=== PATIENT | male | born 1960 | race Caucasian/White ===

== ENCOUNTER 2019-02-26 20:54 | Inpatient (IN) ==
[2019-02-26] MEDS ORDERED: 0.9 % Sodium Chloride 2,000 ML ONE (21:25)
[2019-02-26] MEDS: 0.9 % Sodium Chloride 1,000 ML IVC SCH ×2 (21:32→22:19)
--- NOTE | 2019-02-26 21:39 | Emergency Department Note ---
Disposition Clinical Impression: Urinary tract infection Qualifiers: Urinary tract infection type: acute cystitis Hematuria presence: without hematuria Qualified Code(s): N30.00 - Acute cystitis without hematuria Pneumonia Qualifiers: Pneumonia type: due to unspecified organism Laterality: left Lung location: upper lobe of lung Qualified Code(s): J18.1 - Lobar pneumonia, unspecified organism Sepsis Qualifiers: Sepsis type: sepsis due to unspecified organism Sepsis acute organ dysfunction status: unspecified Qualified Code(s): A41.9 - Sepsis, unspecified organism Disposition: Admitted As Inpatient Condition: Fair Time of Disposition: 00:05 General Adult HPI - General Stated complaint: sepsis Time Seen by Provider: 02/26/19 21:00 Source: patient, EMS Mode of arrival: EMS Limitations: no limitations Nursing Notes Reviewed: Yes Vital Signs Reviewed: Yes - History of Present Illness HPI Narrative: 4-year-old male past medical history of COPD, CAD, hypertension, on Plavix, metoprolol, daily baby aspirin, olanzapine presenting for 2 day history of difficulty breathing. Patient was diagnosed yesterday with pneumonia and states that he was having worsening weakness, tremors and chills since that [facility] found to have an upper left lobe pneumonia, also urinary tract infection, it is documented that he was [facility] as well as maintenance fluids, but was initially communicated us by the physician at the facility he received 2 L of fluids, the patient also received a gram of her staff and at the facility, patient transferred to our care for further evaluation and management. Patient is noted to be tachycardic, tachypneic and febrile at our facility sepsis alert was called. The patient in addition to the above-mentioned symptoms also spouses lightheadedness/dizziness, he states he has some chest pain associated with the shortness of breath as well as a cough productive of dark yellow sputum. He denies any other concerns or complaints at this time. Patient's INR was checked at the outside facility as well as a PT both were found to be in within normal ranges, white blood cell count showed an elevated at 18.2, with a neutrophil predominance, patient's BMP was found to have an elevated creatinine level of 1.83 without prior to compare this to, impression of a chest x-ray was read as opacity and consolidation of left upper lobe, there were no blood cultures drawn at this time nor lactic acid, we will draw these at this time and admit the patient to the hospitalist medicine service for further evaluation and manag ement of pneumonia and UTI in the setting of sepsis. I discussed my plan of care with the patient his at bedside and both verbalized their understanding and agreement with this plan. Upon my initial evaluation, my general impression is that the patient is awake, alert, oriented, engaged to conversation and answering questions appropriately. There are no overt lateralizing signs, the patient is in no acute distress; their skin appears to be normal in color, they are not pale, not cyanotic, and not diaphoretic, they are sitting up in hospital bed interacting appropriately with environment. Onset (ago): day(s) Associated symptoms: Reports: chest pain, fever/chills, loss of appetite, malaise, shortness of breath Treatments Prior to Arrival: other (IV fluids, Rocephin) - Related Data Home Medications Medication Instructions Recorded Confirmed Aspirin 81 mg PO QAM 03/14/15 03/14/15 Budesonide/Formoterol 160/4.5 1 puff IH BID PRN 03/14/15 03/14/15 [Symbicort 160/4.5] Citalopram [CeleXA] 20 mg PO QPM 03/14/15 03/14/15 Clopidogrel [Plavix] 75 mg PO QPM 03/14/15 03/14/15 Gabapentin [Neurontin] 300 mg PO BID 03/14/15 03/14/15 Hydrocodone/Acetaminophen [[place] 1 each PO DAILY PRN 03/14/15 03/14/15 5-325 Tablet] Isosorbide MONOnitrate (24 HR) 30 mg PO QAM 03/14/15 03/14/15 [Imdur] Losartan [Cozaar] 100 mg PO QPM 03/14/15 03/14/15 Metoprolol [Lopressor] 25 mg PO QAM 03/14/15 03/14/15 OLANZapine [Zyprexa] 20 mg PO HS 03/14/15 03/14/15 Ranitidine HCl [Zantac] 300 mg PO QAM 03/14/15 03/14/15 Simvastatin [Zocor] 40 mg PO QPM 03/14/15 03/14/15 Temazepam [Restoril] 15 mg PO HS 03/14/15 03/14/15 rOPINIRole [Requip] 0.5 mg PO BID 03/14/15 03/14/15 Allergies Allergy/AdvReac Type Severity Reaction Status Date / Time acetaminophen AdvReac Nausea Verified 03/14/15 10:51 [From Darvocet-N] propoxyphene AdvReac Nausea Verified 03/14/15 10:51 [From Darvocet-N] Review of Systems: *See History of Present Illness for more detail Constitutional: Admits: fever, chills Cardiovascular: Admits: chest pain Respiratory: Admits: dyspnea, denies: cough, hemoptysis Gastrointestinal: Denies: abdominal pain, nausea, vomiting, diarrhea, constipation, hematemesis, melena, hematochezia Genitourinary: Denies: hematuria Musculoskeletal: Denies: back pain, neck pain Neurological: Admits: headache, weakness, lightheadedness/dizziness, denies: numbness, paresthesias, difficulty with ambulation. Endocrine: Admits: fatigue All systems ED: reviewed and negative except as stated. Review of Systems: As Per HPI Past Medical History - Past Medical History Medical history: Reports: cancer, COPD, coronary artery disease, GERD, hyperlipi demia, hypertension, other Surgical history: Reports: angioplasty/stent Psychiatric history: Reports: depression, prior suicide attempt - Social History Smoking Status: Current every day smoker Smokeless Tobacco Status: No Alcohol use: Reports: none Drug use: Reports: none Physical Exam Constitutional: No acute distress, [id number], engaged to conversation, speech is fluid, answers questions appropriately Neuro: GCS 15, no overt focal neurological deficits Head: Atraumatic, normocephalic Eyes: Pupils equal, round and reactive to light, no scleral icterus, no conjunctival injection Neck: Trachea midline without deviation. Anterior neck is supple without swelling. *Chest: Symmetric chest wall rise *Heart: Cardiac rate is tachycardic with regular rhythm with S1 and S2 , no S3 or S4 appreciated, no murmurs, gallops, rubs, or clicks. *Lungs: Diffuse rhonchi noted in the left upper lobe, without accessory muscle use or prolonged expiratory phase. No wheezes, rhonchi or stridor appreciated. Abdomen: Abdomen is flat, soft to palpation, normal bowel sounds. No abdominal bruit auscultated. Non-distended, non-rigid, no organomegaly, no ascites appreciated. No pulsatile mass, no tenderness or guarding to palpation in all four quadrants, no rebound Extremities: Normal capillary refill without evidence of pedal edema, joint swelling or erythema. Pulses/motor intact in extremities. Psychiatric exam: Patient displays a normal affect and mood for the environment. No overt signs of hallucination. Integumentary: warm, dry, intact, normal color. No rash, cyanosis, diaphoresis, erythema, or pallor - General Limitations: no limitations General appearance: alert, in no apparent distress Course Course Narrative: Blood cultures, lactic acid, 2 L IV fluids, vancomycin, EKG/old EKG Admit to hospital medicine service for their evaluation and management of sepsis in the setting of UTI and pneumonia. Vital Signs Temperature 100.5 F H 02/26/19 21:09 Pulse Rate 108 02/26/19 21:09 Respiratory Rate 18 02/26/19 21:09 Blood Pressure 144/86 02/26/19 21:09 O2 Sat by Pulse Oximetry 94 02/26/19 21:09 Temperature 100.5 F H 02/26/19 21:09 Pulse Rate 106 02/26/19 22:15 Respiratory Rate 24 02/26/19 22:15 Blood Pressure 155/85 02/26/19 22:15 O2 Sat by Pulse Oximetry 94 02/26/19 22:15 Oxygen Delivery Oxygen Delivery Room Air Medical Decision Making - Lab Data Result diagrams: 02/26/19 21:27 02/26/19 21:27 Lab Results 02/26/19 02/26/19 02/26/19 Range/Units 21:27 21:27 21:27 WBC 13.0 H (4.3-11.1) K/mcL RBC 4.37 (4.19-5.50) M/mcL Hgb 12.9 (12.9-16.9) g/dL Hct 38.5 (37.5-50.1) % MCV 88.1 (83.0-100.0) fL MCH 29.5 (28.0-33.3) pg MCHC 33.5 (31.6-35.5) g/dL RDW 14.1 (11.5-14.5) % Plt Count 151 (140-400) K/mcL MPV 10.0 (9.4-12.4) fL Immature Gran % 1.3 (0-4) % Seg Neutrophils % 96.7 % Lymphocytes % 1.1 % Monocytes % 0.8 % Eosinophils % 0.0 % Basophils % 0.1 % Neutrophils # 12.6 H (1.6-8.9) K/mcL Lymphocytes # 0.1 L (0.6-4.6) K/mcL Monocytes # 0.1 (0.0-1.3) K/mcL Eosinophils # 0.0 (0.0-0.6) K/mcL Basophils # 0.0 (0.0-0.2) K/mcL Platelet Estimate Normal (Normal) PT 14.5 H (9.4-12.1) Seconds INR 1.3 APTT 33.2 (26.0-36.0) Seconds Sodium (136-145) mEq/L Potassium (3.5-5.1) mEq/L Chloride (98-107) mEq/L Carbon Dioxide (23-29) mEq/L BUN (8-23) mg/dL Creatinine (0.70-1.30) mg/dL Est GFR ( Amer) (> 60) Est GFR (Non-Af Amer) (> 60) BUN/Creatinine Ratio (6-26) Glucose (70-105) mg/dL Calculated Osmolality (280-300) Lactic Acid 1.0 (0.5-2.2) mmol/L Calcium (8.6-10.3) mg/dL Magnesium (1.6-2.6) mg/dL Total Bilirubin (0.3-1.0) mg/dL Direct Bilirubin (0.0-0.2) mg/dL Indirect Bilirubin (0.0-1.2) mg/dL AST (13-39) Units/L ALT (7-52) Units/L Alkaline Phosphatase (34-104) Units/L Serum Total Protein (6.4-8.9) g/dL Albumin (3.5-5.7) g/dL Globulin (2.4-3.5) g/dL Albumin/Globulin Ratio (1.1-2.2) 02/26/19 Range/Units 21:27 WBC (4.3-11.1) K/mcL RBC (4.19-5.50) M/mcL Hgb (12.9-16.9) g/dL Hct (37.5-50.1) % MCV (83.0-100.0) fL MCH (28.0-33.3) pg MCHC (31.6-35.5) g/dL RDW (11.5-14.5) % Plt Count (140-400) K/mcL MPV (9.4-12.4) fL Immature Gran % (0-4) % Seg Neutrophils % % Lymphocytes % % Monocytes % % Eosinophils % % Basophils % % Neutrophils # (1.6-8.9) K/mcL Lymphocytes # (0.6-4.6) K/mcL Monocytes # (0.0-1.3) K/mcL Eosinophils # (0.0-0.6) K/mcL Basophils # (0.0-0.2) K/mcL Platelet Estimate (Normal) PT (9.4-12.1) Seconds INR APTT (26.0-36.0) Seconds Sodium 131 L (136-145) mEq/L Potassium 3.5 (3.5-5.1) mEq/L Chloride 105 (98-107) mEq/L Carbon Dioxide 18 L (23-29) mEq/L BUN 15 (8-23) mg/dL Creatinine 1.18 (0.70-1.30) mg/dL Est GFR ( Amer) > 60 (> 60) Est GFR (Non-Af Amer) > 60 (> 60) BUN/Creatinine Ratio 13 (6-26) Glucose 130 H (70-105) mg/dL Calculated Osmolality 275 L (280-300) Lactic Acid (0.5-2.2) mmol/L Calcium 8.3 L (8.6-10.3) mg/dL Magnesium 1.6 (1.6-2.6) mg/dL Total Bilirubin 0.6 (0.3-1.0) mg/dL Direct Bilirubin 0.2 (0.0-0.2) mg/dL Indirect Bilirubin 0.4 (0.0-1.2) mg/dL AST 13 (13-39) Units/L ALT 8 (7-52) Units/L Alkaline Phosphatase 73 (34-104) Units/L Serum Total Protein 5.8 L (6.4-8.9) g/dL Albumin 3.4 L (3.5-5.7) g/dL Globulin 2.4 (2.4-3.5) g/dL Albumin/Globulin Ratio 1.4 (1.1-2.2) Attestation Statement - Attestation Attestation: I have seen this patient with the resident physician, I have personally evaluated this patient. I had reviewed the chart and document dictation by the resident physician and aM in agreement with the information documented by the resident physician. Please see documentation by the resident physician for complete chart including past medical history, family medical history, review of systems, current history and physical and laboratory and imaging studies. I was present for all procedures, provided direct supervision for all procedures, was present for the entirety of all procedures and provided direct guidance during the procedures. Please see documentation by the resident physician for any procedures performed. I have reviewed all interpretations of EKGs, and reviewed all EKGs performed on patient's as well. I have also reviewed reports of imaging as provided by radiology.
--- NOTE | 2019-02-26 21:46 | Emergency Department Note ---
Disposition Clinical Impression: Urinary tract infection, Pneumonia, Sepsis Disposition: Admitted As Inpatient Condition: Fair [facility] Provider[facility] - Time of Disposition: 21:47 General Adult HPI - General Chief complaint: ED Urogenital-Male Stated complaint: sepsis Time Seen by Provider: 02/26/19 21:00 Source: patient, EMS Mode of arrival: EMS Limitations: no limitations Nursing Notes Reviewed: Yes Vital Signs Reviewed: Yes - History of Present Illness Pain Scale: 0 - Related Data Home Medications Medication Instructions Recorded Confirmed Aspirin 81 mg PO QAM 03/14/15 03/14/15 Budesonide/Formoterol 160/4.5 1 puff IH BID PRN 03/14/15 03/14/15 [Symbicort 160/4.5] Citalopram [CeleXA] 20 mg PO QPM 03/14/15 03/14/15 Clopidogrel [Plavix] 75 mg PO QPM 03/14/15 03/14/15 Gabapentin [Neurontin] 300 mg PO BID 03/14/15 03/14/15 Hydrocodone/Acetaminophen [[place] 1 each PO DAILY PRN 03/14/15 03/14/15 5-325 Tablet] Isosorbide MONOnitrate (24 HR) 30 mg PO QAM 03/14/15 03/14/15 [Imdur] Losartan [Cozaar] 100 mg PO QPM 03/14/15 03/14/15 Metoprolol [Lopressor] 25 mg PO QAM 03/14/15 03/14/15 OLANZapine [Zyprexa] 20 mg PO HS 03/14/15 03/14/15 Ranitidine HCl [Zantac] 300 mg PO QAM 03/14/15 03/14/15 Simvastatin [Zocor] 40 mg PO QPM 03/14/15 03/14/15 Temazepam [Restoril] 15 mg PO HS 03/14/15 03/14/15 rOPINIRole [Requip] 0.5 mg PO BID 03/14/15 03/14/15 Allergies Allergy/AdvReac Type Severity Reaction Status Date / Time acetaminophen AdvReac Nausea Verified 03/14/15 10:51 [From Darvocet-N] propoxyphene AdvReac Nausea Verified 03/14/15 10:51 [From Darvocet-N] Past Medical History - Past Medical History Medical history: Reports: COPD, coronary artery disease, hyperlipidemia, hypertension, other Surgical history: Reports: angioplasty/stent Psychiatric history: Reports: depression - Social History Smoking Status: Current every day smoker Smokeless Tobacco Status: No Alcohol use: Reports: none Drug use: Reports: marijuana Physical Exam - General Limitations: no limitations General appearance: alert Course Vital Signs Temperature 100.5 F H 02/26/19 21:09 Pulse Rate 108 02/26/19 21:09 Respiratory Rate 18 02/26/19 21:09 Blood Pressure 144/86 02/26/19 21:09 O2 Sat by Pulse Oximetry 94 02/26/19 21:09 Temperature 100.5 F H 02/26/19 21:09 Pulse Rate 108 02/26/19 21:09 Respiratory Rate 18 02/26/19 21:09 Blood Pressure 144/86 02/26/19 21:09 O2 Sat by Pulse Oximetry 94 02/26/19 21:09 Oxygen Delivery Oxygen Delivery Room Air Attestation Statement - Attestation Attestation: I have seen this patient with the resident physician, I have personally evaluated this patient. I had reviewed the chart and document dictation by the resident physician and aM in agreement with the information documented by the resident physician. Please see documentation by the resident physician for complete chart including past medical history, family medical history, review of systems, current history and physical and laboratory and imaging studies. I was present for all procedures, provided direct supervision for all procedures, was present for the entirety of all procedures and provided direct guidance during the procedures. Please see documentation by the resident physician for any procedures performed. I have reviewed all interpretations of EKGs, and reviewed all EKGs performed on patient's as well. I have also reviewed reports of imaging as provided by radiology. Patient presented from the [facility] for evaluation and management of sepsis. Reviewing his chart, that was sent with him, he was started on Rocephin for pneumonia and UTI, does not appear blood cultures were sent lactic acid was not sent by report he had received 2 L of fluids however reviewing the chart it appears he only received 500 mL of fluids. Upon arrival, he is not hypotensive slightly tachycardic around 110, low-grade temperature of 100.5 oxygen saturation ranging between 91 and 95 on the monitor. He has coarse breath sounds in his left upper lobe he is otherwise alert awake and talking, mucous members are slightly dry appearance of the oropharynx but no significant evidence of dehydration. Abdomen soft and nontender. Heart is regular, tachycardic, no significant murmurs rubs or gallops. Abdomen soft nontender without rebound guarding or peritoneal sign without CVA tenderness. Skin is warm and dry without rash or petechiae neurologic exam is nonfocal. Blood cultures were added onto this patient's workup, as was a lactic acid, I did review laboratory studies that [facility], he had a urinalysis that had positive nitrites positive esterase positive white blood cells, also had CBC with leukocytosis of 18,000, creatinine of 1.83 with a comparison available from outside facility however patient does have a creatinine from 2015 in our system where it was 1.01. Further IV hydration was initiated for sepsis protocol, he also added vancomycin to his coverage for pneumonia, and sepsis already received Rocephin for UTI and pneumonia. Patient will be admitted to the hospital for further evaluation and management. Total critical care times provided myself excluding any procedures performed, evaluation and management of urosepsis/pneumosepsis, acute renal insufficiency, leukocytosis was 30 minutes.
[2019-02-26 22:35] LABS: Basophils % 0.1 %; Hematocrit 38.5 % (37.5-50.1); Hemoglobin 12.9 g/dL (12.9-16.9); Immature Granulocytes % 1.3 % (0-4); Lymphocytes # 0.1 K/mcL (0.6-4.6); Lymphocytes % 1.1 %; Mean Corpuscular HGB Conc 33.5 g/dL (31.6-35.5); Mean Corpuscular Hemoglobin 29.5 pg (28.0-33.3); Mean Corpuscular Volume 88.1 fL (83.0-100.0); Monocytes # 0.1 K/mcL (0.0-1.3); Monocytes % 0.8 %; Platelet Count 151 K/mcL (140-400); Red Blood Count 4.37 M/mcL (4.19-5.50); Red Cell Distribution Width 14.1 % (11.5-14.5); Segmented Neutrophils % 96.7 %
[2019-02-26 22:36] LABS: Neutrophils # 12.6 K/mcL (1.6-8.9)
[2019-02-26 22:43] LABS: INR 1.3; Prothrombin Time 14.5 Seconds (9.4-12.1)
[2019-02-26 22:46] LABS: Activated Partial Thrombo Time 33.2 Seconds (26.0-36.0)
[2019-02-26 22:49] LABS: Alanine Aminotransferase 8 Units/L (7-52); Albumin 3.4 g/dL (3.5-5.7); Albumin/Globulin Ratio 1.4 (1.1-2.2); Alkaline Phosphatase 73 Units/L (34-104); Aspartate Amino Transferase 13 Units/L (13-39); BUN/Creatinine Ratio 13 (6-26); Bilirubin,Direct 0.2 mg/dL (0.0-0.2); Bilirubin,Indirect 0.4 mg/dL (0.0-1.2); Bilirubin,Total 0.6 mg/dL (0.3-1.0); Blood Urea Nitrogen 15 mg/dL (8-23); Calcium 8.3 mg/dL (8.6-10.3); Carbon Dioxide 18 mEq/L (23-29); Chloride 105 mEq/L (98-107); Globulin 2.4 g/dL (2.4-3.5); Glucose 130 mg/dL (70-105); Magnesium 1.6 mg/dL (1.6-2.6); Osmolality,Calculated 275 (280-300); Potassium 3.5 mEq/L (3.5-5.1); Sodium 131 mEq/L (136-145); Total Protein 5.8 g/dL (6.4-8.9); eGFR For African Americans > 60 (> 60); eGFR For Non-African Americans > 60 (> 60)
[2019-02-26 22:55] LABS: Platelet Estimate Normal (Normal)
[2019-02-26] MEDS ORDERED: Ondansetron 4 MG/2 ML VIAL IVP PRN (23:29)
[2019-02-26] MEDS ORDERED: Acetaminophen 325 MG TABLET PO PRN (23:29)
[2019-02-27] MEDS: traMADol 50 MG TABLET PO PRN ×3 (00:05→17:51)
[2019-02-27] MEDS: 0.9 % Sodium Chloride 1,000 ML IVC SCH ×2 (00:05→08:06)
[2019-02-27] MEDS ORDERED: Ipratropium/Albuterol Neb 3 ML IH PRN (02:01)
--- NOTE | 2019-02-27 02:10 | Internal Med History&Physical ---
Date of Encounter: 02/27/19 Time of Encounter: 02:10 Internal Medicine - H&P: HPI Chief complaint: sob Admitted From: Home Plans for Post Hospital Care: Home History of present illness: Sukhjinder Caro is a 58 year old man with hypertension, coronary artery disease and COPD who was sent from [facility] [place] [facility] for further evaluation after he presented there with worsening shortness of breath, generalized weakness, chills and a cough productive of yellowish sputum. It is stated that he was found to have a left upper lobe pneumonia and possible urinary tract infection, given some fluids with antibiotics and sent over here for further care. On arrival here he appears miserable and was febrile. He also reports pain and pleuritic pointing to the left lateral chest wall. His chest x-ray from the [facility] was loaded and on my review has a significant consolidation in the left upper lobe. He was given a dose of vancomycin here on top of the ceftriaxone he was already given at the [facility]. Vitals: Reviewed General: Well-developed man lying in bed with notable discomfort. Skin: Warm, flushed and dry. HEENT: Moist mucous membranes. No conjunctivae pallor. Neck: No lymphadenopathy. No JVD. No carotid bruits. No palpable thyroid. Chest: Diminished thoracic expansion with reduced breath sounds in the left upper lobe with fine wheezes and rales.. Heart: Normal S1 & S2; rhythmic. No rubs or murmurs. Abdomen: Non-distended, soft and non-tender to palpation. No peritoneal reaction. Extremities: No clubbing, cyanosis or edema. No calf tenderness. Normal distal pulses. Neurological: Awake, alert and oriented to person, place and time. No focal deficits. Psych: Affect appropriate. Assessment/Plan 1. Sepsis secondary to community-acquired pneumonia: The patient has fever, leukocytosis and tachycardia with a notable infiltrate on x-ray that correlates with his pleuritic chest pain and productive cough. Send urine serologies for Strep and Legionella. Send blood cultures and if able to obtain send sputum cultures as well. Start levofloxacin 750mg daily empirically. 2. Hypertension: Well controlled. Continue losartan. 3. Coronary artery disease: On dual antiplatelet therapy, long-acting nitrates, high intensity statin and beta blockers. 4. COPD: On LABA/ICS daily. Will order DIXIE prn. Past Med Surg Social Fam HX - Past Medical History Medical history: COPD, coronary artery disease, hyperlipidemia, hypertension, other Additional medical history: CORONARY ARTERIOSCLEROSIS,RLS,BPH Psychiatric history: depression - Past Surgical History Surgical History: angioplasty/stent - Social History Smoking Status: Current every day smoker Smokeless Tobacco Status: No Alcohol use: none Drug use: marijuana - Family History Father Living Status: Hx Family Cancer: Yes Sister Living Status: Hx Family Cancer: Yes Brother Living Status: Hx Family Cancer: Yes Internal Medicine - H&P: Meds Aspirin 81 mg PO QAM 03/14/15 [History] Budesonide/Formoterol 160/4.5 [Symbicort 160/4.5] 1 puff IH BID PRN 03/14/15 [History] Citalopram [CeleXA] 20 mg PO QPM 03/14/15 [History] Clopidogrel [Plavix] 75 mg PO QPM 03/14/15 [History] Gabapentin [Neurontin] 300 mg PO BID 03/14/15 [History] Hydrocodone/Acetaminophen [[place] 5-325 Tablet] 1 each PO DAILY PRN 03/14/15 [History] Isosorbide MONOnitrate (24 HR) [Imdur] 30 mg PO QAM 03/14/15 [History] Losartan [Cozaar] 100 mg PO QPM 03/14/15 [History] Metoprolol [Lopressor] 25 mg PO QAM 03/14/15 [History] OLANZapine [Zyprexa] 20 mg PO HS 03/14/15 [History] Ranitidine HCl [Zantac] 300 mg PO QAM 03/14/15 [History] Simvastatin [Zocor] 40 mg PO QPM 03/14/15 [History] Temazepam [Restoril] 15 mg PO HS 03/14/15 [History] rOPINIRole [Requip] 0.5 mg PO BID 03/14/15 [History] Allergy/AdvReac Type Severity Reaction Status Date / Time acetaminophen AdvReac Nausea Verified 03/14/15 10:51 [From Darvocet-N] propoxyphene AdvReac Nausea Verified 03/14/15 10:51 [From Darvocet-N] All Systems PM: A 10-system review of systems was performed and is negative for pertinent findings except as documented above in the HPI. - Constitutional Vitals: Temp Pulse Resp BP Pulse Ox 100.5 F H 106 24 155/85 94 02/26/19 21:09 02/26/19 22:15 02/26/19 22:15 02/26/19 22:15 02/26/19 22:15 Exam: . Internal Med - H&P Results - Labs CBC & Chem 7: 02/26/19 21:27 02/26/19 21:27 Labs: Short CBC 02/26/19 Range/Units 21:27 WBC 13.0 H (4.3-11.1) K/mcL Hgb 12.9 (12.9-16.9) g/dL Hct 38.5 (37.5-50.1) % Plt Count 151 (140-400) K/mcL Neutrophils # 12.6 H (1.6-8.9) K/mcL BMP 02/26/19 21:27 Sodium 131 L Potassium 3.5 Chloride 105 Carbon Dioxide 18 L BUN 15 Creatinine 1.18 Glucose 130 H Calcium 8.3 L Liver Function 02/26/19 Range/Units 21:27 Total Bilirubin 0.6 (0.3-1.0) mg/dL Direct Bilirubin 0.2 (0.0-0.2) mg/dL AST 13 (13-39) Units/L ALT 8 (7-52) Units/L Alkaline Phosphatase 73 (34-104) Units/L Albumin 3.4 L (3.5-5.7) g/dL - Time Spent With Patient Total time spent is greater than 50% in coordination of care (as documented) at patient's floor/unit and/or counseling patient:
[2019-02-27] MEDS: GuaiFENesin Liq 200 MG/10 ML UDC PO PRN ×3 (05:51→17:58)
[2019-02-27] MEDS: *HR* Heparin 5,000 UNIT/ML VIAL SQ SCH ×2 (05:51→17:41)
[2019-02-27 07:03] LABS: Basophils % 0.1 %; Eosinophils % 0.1 %; Hematocrit 38.5 % (37.5-50.1); Hemoglobin 12.5 g/dL (12.9-16.9); Immature Granulocytes % 2.8 % (0-4); Lymphocytes # 0.2 K/mcL (0.6-4.6); Lymphocytes % 1.7 %; Mean Corpuscular HGB Conc 32.5 g/dL (31.6-35.5); Mean Corpuscular Hemoglobin 28.9 pg (28.0-33.3); Mean Corpuscular Volume 89.1 fL (83.0-100.0); Mean Platelet Volume 10.3 fL (9.4-12.4); Monocytes # 0.2 K/mcL (0.0-1.3); Monocytes % 1.7 %; Neutrophils # 11.2 K/mcL (1.6-8.9); Platelet Count 146 K/mcL (140-400); Red Blood Count 4.32 M/mcL (4.19-5.50); Red Cell Distribution Width 14.1 % (11.5-14.5); Segmented Neutrophils % 93.6 %
[2019-02-27 07:31] LABS: BUN/Creatinine Ratio 13 (6-26); Blood Urea Nitrogen 13 mg/dL (8-23); Calcium 8.1 mg/dL (8.6-10.3); Carbon Dioxide 17 mEq/L (23-29); Chloride 109 mEq/L (98-107); Glucose 127 mg/dL (70-105); Osmolality,Calculated 280 (280-300); Potassium 3.7 mEq/L (3.5-5.1); Sodium 134 mEq/L (136-145); eGFR For African Americans > 60 (> 60); eGFR For Non-African Americans > 60 (> 60)
[2019-02-27] MEDS: Famotidine 20 MG TABLET PO SCH (08:06)
[2019-02-27] MEDS: Gabapentin 300 MG CAPSULE PO SCH ×2 (08:06→20:55)
[2019-02-27] MEDS: rOPINIRole 0.25 MG TABLET PO SCH ×2 (08:06→20:55)
[2019-02-27] MEDS: Aspirin 81 MG TAB.CHEW PO SCH (08:07)
[2019-02-27] MEDS: Isosorbide MONOnitrate (24 HR) 30 MG TAB.ER.24H PO SCH (08:07)
[2019-02-27] MEDS: Budesonide/Formoterol 160/4.5 1 PUFF INH IH SCH ×2 (08:27→20:17)
[2019-02-27] MEDS ORDERED: levoFLOXacin 750 MG/150 ML 750 MG/150 ML BAG IVPB SCH (09:00)
[2019-02-27] MEDS ORDERED: GuaiFENesin Liq 200 MG/10 ML UDC PO SCH (18:00)
--- NOTE | 2019-02-27 18:01 | Internal Med Progress Note ---
Hospitalist Progress Note - Encounter Date of Encounter: 02/27/19 Time of Encounter: 17:00 - Subjective Interval History: Patient seen and examined today. He states that his breathing is about the same as yesterday. His energy level has sometimes been good and sometimes has been down throughout the day. He has also been coughing up sputum tinged with blood. The amount is varied. The patient states that he has been choking on his food occasionally for a few months and has had it within the last 1 week. He denies drinking alcohol. - Exam Vitals: Temp Pulse Resp BP Pulse Ox 97.9 F 91 16 130/76 90 02/27/19 15:29 02/27/19 15:29 02/27/19 15:29 02/27/19 15:29 02/27/19 15:29 Exam: General: Well-developed man lying in bed with notable discomfort. Skin: Warm, flushed and dry. HEENT: Moist mucous membranes. No conjunctivae pallor. Neck: No JVD. No carotid bruits. No palpable thyroid. Chest: Clear to Auscltation Heart: Normal S1 & S2; rhythmic. No rubs or murmurs. Abdomen: Benign. Extremities: No clubbing, cyanosis or edema. No calf tenderness. Normal distal pulses. Neurological: Awake, alert and oriented to person, place and time. No focal deficits. Psych: Affect appropriate. - Assessment and Plan (1) Sepsis Current Visit: Yes Status: Resolved Assessment and Plan: This is from the pneumonia and UTI. The patient sepsis per meters have improved. His lactate was normal. His blood pressure has improved. Leukocytosis is also gradually improving. (2) Pneumonia Current Visit: Yes Status: Acute Assessment and Plan: Due to hemoptysis will obtain a CT of the chest without contrast. Due to giving history of possible aspiration the patient is being switched to IV Zosyn and doxycycline. Will DC the Levaquin as a single agent. We will also obtain a speech pathology present. Monitor labs. And strep pneumo were negative at admission. Blood cultures pending. (3) HTN (hypertension) Current Visit: Yes Status: Chronic Assessment and Plan: Monitor blood pressure continue current medications. (4) Urinary tract infection Current Visit: Yes Status: Acute Assessment and Plan: The patient had significant pyuria on his urinalysis. The patient states that a few days ago he had burning urination The patient will be on Zosyn and doxycycline. Urine cultures may have been obtained at the referring facility and will need results of any such cultures. DVT Prophylaxis: Heparin and Coumadin have been held due to hemoptysis. - Time Spent with Patient Total time spent is greater than 50% in coordination of care (as documented) at patient's floor/unit and/or counseling patient: Internal Medicine: Result - Labs CBC & Chem 7: 02/27/19 06:24 02/27/19 06:24 Labs: Short CBC 02/26/19 02/27/19 Range/Units 21:27 06:24 WBC 13.0 H 12.0 H (4.3-11.1) K/mcL Hgb 12.9 12.5 L (12.9-16.9) g/dL Hct 38.5 38.5 (37.5-50.1) % Plt Count 151 146 (140-400) K/mcL Neutrophils # 12.6 H 11.2 H (1.6-8.9) K/mcL BMP 02/26/19 02/27/19 21:27 06:24 Sodium 131 L 134 L Potassium 3.5 3.7 Chloride 105 109 H Carbon Dioxide 18 L 17 L BUN 15 13 Creatinine 1.18 0.98 Glucose 130 H 127 H Calcium 8.3 L 8.1 L Liver Function 02/26/19 Range/Units 21:27 Total Bilirubin 0.6 (0.3-1.0) mg/dL Direct Bilirubin 0.2 (0.0-0.2) mg/dL AST 13 (13-39) Units/L ALT 8 (7-52) Units/L Alkaline Phosphatase 73 (34-104) Units/L Albumin 3.4 L (3.5-5.7) g/dL - ABG Interpretation ABG results: PT/INR, D-dimer PT 14.5 Seconds (9.4-12.1) H 02/26/19 21:27 Consult Discharge Plan - Plan Referrals: [facility] [Outside] (1) Sepsis Qualifiers: Sepsis type: sepsis due to unspecified organism Sepsis acute organ dysfunction status: unspecified Qualified Code(s): A41.9 - Sepsis, unspecified organism (2) Pneumonia Qualifiers: Pneumonia type: due to unspecified organism Laterality: left Lung location: upper lobe of lung Qualified Code(s): J18.1 - Lobar pneumonia, unspecified organism (4) Urinary tract infection Qualifiers: Urinary tract infection type: acute cystitis Hematuria presence: without hematuria Qualified Code(s): N30.00 - Acute cystitis without hematuria
[2019-02-27] MEDS: Doxycycline 100 MG in 0.9 % Sodium Chloride Mini Bag 100 ML IVPB SCH (18:36)
[2019-02-27] MEDS: Temazepam 15 MG CAPSULE PO SCH (20:54)
[2019-02-27] MEDS: OLANZapine 10 MG TAB.RAPDIS PO SCH (20:55)
[2019-02-28] MEDS: Piperacillin/Tazobactam 3.375 GM in 0.9 % Sodium Chloride Mini Bag 100 ML IVPB SCH ×4 (00:05→23:57)
[2019-02-28] MEDS ORDERED: 0.9 % Sodium Chloride Mini Bag 100 ML ONE (00:07)
[2019-02-28] MEDS: Doxycycline 100 MG in 0.9 % Sodium Chloride Mini Bag 100 ML IVPB SCH (05:25)
[2019-02-28] MEDS: *HR* Heparin 5,000 UNIT/ML VIAL SQ SCH (05:28)
[2019-02-28 05:34] LABS: Basophils % 0.1 %; Hematocrit 35.7 % (37.5-50.1); Hemoglobin 11.8 g/dL (12.9-16.9); Immature Granulocytes % 0.7 % (0-4); Lymphocytes # 0.4 K/mcL (0.6-4.6); Lymphocytes % 4.3 %; Mean Corpuscular HGB Conc 33.1 g/dL (31.6-35.5); Mean Corpuscular Hemoglobin 29.7 pg (28.0-33.3); Mean Corpuscular Volume 89.9 fL (83.0-100.0); Monocytes # 0.2 K/mcL (0.0-1.3); Monocytes % 2.8 %; Neutrophils # 7.7 K/mcL (1.6-8.9); Platelet Count 158 K/mcL (140-400); Red Blood Count 3.97 M/mcL (4.19-5.50); Red Cell Distribution Width 14.2 % (11.5-14.5); Segmented Neutrophils % 92.1 %; White Blood Count 8.4 K/mcL (4.3-11.1)
[2019-02-28 05:56] LABS: BUN/Creatinine Ratio 13 (6-26); Blood Urea Nitrogen 13 mg/dL (8-23); Calcium 8.2 mg/dL (8.6-10.3); Carbon Dioxide 22 mEq/L (23-29); Chloride 102 mEq/L (98-107); Glucose 97 mg/dL (70-105); Osmolality,Calculated 280 (280-300); Potassium 3.7 mEq/L (3.5-5.1); Sodium 135 mEq/L (136-145); eGFR For African Americans > 60 (> 60); eGFR For Non-African Americans > 60 (> 60)
[2019-02-28] MEDS: Budesonide/Formoterol 160/4.5 1 PUFF INH IH SCH ×2 (07:28→19:44)
[2019-02-28] MEDS: Aspirin 81 MG TAB.CHEW PO SCH (09:15)
[2019-02-28] MEDS: Isosorbide MONOnitrate (24 HR) 30 MG TAB.ER.24H PO SCH (09:15)
[2019-02-28] MEDS: rOPINIRole 0.25 MG TABLET PO SCH ×2 (09:15→21:04)
[2019-02-28] MEDS: Famotidine 20 MG TABLET PO SCH (09:15)
[2019-02-28] MEDS: Gabapentin 300 MG CAPSULE PO SCH ×2 (09:15→21:04)
[2019-02-28] MEDS: *HR* HYDROcodone/Acet 5/325 mg TABLET PO PRN (12:33)
--- NOTE | 2019-02-28 14:20 | Pulmonology Consult Note ---
Date of Encounter: 02/28/19 Time of Encounter: 14:32 Assessment and Plan (1) Hemoptysis Current Visit: Yes Status: Acute I suspect his hemoptysis is due to a severe community-acquired pneumonia coupled with Plavix use. Alveolar hemorrhage syndrome is in the differential diagnosis as well, but seems less likely clinically. I did send off serologies for evaluation of possible pulmonary capillaritis. Evolving ARDS with diffuse alveolar damage could also be contributing. I did offer the patient bronchoscopy for further airway inspection and evaluation of alveolar hemorrhage, but he would like to avoid this if possible. It is difficult to quantify the amount of hemoptysis, but today it looks more like blood-streaked sputum more so than aparna hemoptysis. For this reason (and since he reports chest pains with stopping Plavix in the past) we will continue Plavix for now. We can discontinue it later if he develops massive hemoptysis. (2) Pneumonia Current Visit: Yes Status: Acute This is a severe community-acquired pneumonia. He has underlying structural lung disease with COPD, and he is at risk for MRSA and pseudomonas. Agree with Zosyn, but I have added vancomycin. MRSA nasal probe is pending. Sputum culture is pending. Urinary antigens were negative. Qualifiers: Pneumonia type: due to unspecified organism Laterality: left Lung location: upper lobe of lung Qualified Code(s): J18.1 - Lobar pneumonia, unspecified organism (3) COPD with acute exacerbation Current Visit: Yes Status: Acute Agree with scheduled bronchodilators and antibiotics. I have added steroids to treat severe community acquired pneumonia, COPD exacerbation, and early acute lung injury. (4) Abnormal CT scan, chest Current Visit: Yes Status: Acute Impressive left-sided infiltrates superimposed on emphysematous changes. There is some likely reactive adenopathy noted as well. Given his smoking history, I would recommend a repeat CT scan in 6-8 weeks to ensure radiographic resolution. (5) Coronary artery disease Current Visit: Yes Status: Acute The patient had coronary stenting in 2012. The patient reports that he had previously discontinued the Plavix for a surgery, but he developed chest pain after the Plavix was held. He is requesting a cardiology consultation for evaluation regarding ongoing Plavix use. I discussed this with the primary service. Comment: Pulmonary team will continue to follow. Plan discussed with the primary service. Qualifiers: Coronary Disease-Associated Artery/Lesion type: unspecified vessel or lesion type [place] vs. transplanted heart: [place] heart Associated angina: angina presence unspecified Qualified Code(s): I25.10 - Atherosclerotic heart disease of [place] coronary artery without angina pectoris History of Present Illness Consult date: 02/28/19 Requesting physician: Ariadna Daley Reason for consult: abnormal CXR/CT Chief complaint: Hemoptysis History of present illness: The patient reports feeling ill for some time. He states that he has not been well for approximately one month prior to admission. He had noted some wo rsening shortness of breath and a cough productive of yellow sputum. The day of his admission he had been outside quite a bit, and he felt as if he was weak and going to pass out. He sought medical attention at the [facility], and he was diagnosed with pneumonia and transferred to [facility] for further evaluation. During the course of his stay, he developed hemoptysis. He showed me the hemoptysis, which appeared to be blood-streaked purulent sputum. Pulmonary was consult for evaluation. Patient does admit to some pleuritic chest pain that is somewhat better. His shortness of breath is somewhat better as well. He denies any hematuria. No chronic sinusitis symptoms. Zeni prior hemoptysis. Past Med Surg Social Fam HX - Past Medical History Medical history: COPD, coronary artery disease, hyperlipidemia, hypertension, other Additional medical history: CORONARY ARTERIOSCLEROSIS,RLS,BPH Psychiatric history: depression - Past Surgical History Surgical History: angioplasty/stent - Social History Smoking Status: Current every day smoker Smokeless Tobacco Status: No Alcohol use: none Drug use: marijuana - Family History Father Living Status: Hx Family Cancer: Yes Sister Living Status: Hx Family Cancer: Yes Brother Living Status: Hx Family Cancer: Yes Medications and Allergies Aspirin 81 mg PO QAM 03/14/15 [History] Budesonide/Formoterol 160/4.5 [Symbicort 160/4.5] 1 puff IH BID PRN 03/14/15 [History] Calcium Carbonate/Vitamin D3 [Calcium 1,000 + D3 Caplet] 1 each PO BID 02/27/19 [History] Clopidogrel Bisulfate [Plavix] 75 mg PO DAILY 02/27/19 [History] Gabapentin [Neurontin] 600 mg PO TID 02/27/19 [History] Melatonin [Melatin] 6 mg PO HS 02/27/19 [History] Metoprolol Succinate [Toprol Xl] 12.5 mg PO DAILY 02/27/19 [History] OLANZapine [Zyprexa] 7.5 mg PO HS 02/27/19 [History] Omeprazole [PriLOSEC] 20 mg PO DAILY 02/27/19 [History] Ranitidine HCl [Zantac] 300 mg PO DAILY 02/27/19 [History] Simvastatin [Zocor] 40 mg PO HS 02/27/19 [History] rOPINIRole [Requip] 1 mg PO HS 02/27/19 [History] Allergy/AdvReac Type Severity Reaction Status Date / Time acetaminophen AdvReac Nausea Verified 02/27/19 15:04 [From Darvocet-N] propoxyphene AdvReac Nausea Verified 02/27/19 15:04 [From Darvocet-N] All Systems: All systems reviewed and negative except for those discussed in the history of present illness Physical Examination Vital Signs: Vital Signs, Last 4 Hours Temp Pulse Resp BP Pulse Ox 02/28/19 11:27 98.2 F 100 18 153/78 89 General appearance: other (Ill appearing with moderately increased work of breathing at rest) Eyes: nonicteric ENT: oropharynx moist Neck: supple Effort: other (Moderate work of breathing at rest with some paradoxical motion) Auscultation: left: rhonchi, right: clear Cardiovascular: regular rate and rhythm Gastrointestinal: normoactive bowel sounds, soft, non-distended Integumentary: other (Tanned skin) Extremities: no cyanosis, no edema Musculoskeletal: no deformities normal mental status, non-focal exam mood appropriate, affect normal Results - Laboratory Findings CBC and BMP: 02/28/19 05:23 02/28/19 05:23 PT/INR, D-dimer PT 14.5 Seconds (9.4-12.1) H 02/26/19 21:27 Abnormal lab findings: Abnormal lab results WBC 12.0 K/mcL (4.3-11.1) H 02/27/19 06:24 RBC 3.97 M/mcL (4.19-5.50) L 02/28/19 05:23 Hgb 11.8 g/dL (12.9-16.9) L 02/28/19 05:23 Hct 35.7 % (37.5-50.1) L 02/28/19 05:23 Neutrophils # 11.2 K/mcL (1.6-8.9) H 02/27/19 06:24 Lymphocytes # 0.4 K/mcL (0.6-4.6) L 02/28/19 05:23 PT 14.5 Seconds (9.4-12.1) H 02/26/19 21:27 Sodium 135 mEq/L (136-145) L 02/28/19 05:23 Chloride 109 mEq/L (98-107) H 02/27/19 06:24 Carbon Dioxide 22 mEq/L (23-29) L 02/28/19 05:23 Glucose 127 mg/dL (70-105) H 02/27/19 06:24 Calculated Osmolality 275 (280-300) L 02/26/19 21:27 Calcium 8.2 mg/dL (8.6-10.3) L 02/28/19 05:23 Serum Total Protein 5.8 g/dL (6.4-8.9) L 02/26/19 21:27 Albumin 3.4 g/dL (3.5-5.7) L 02/26/19 21:27 - Microbiology Findings Microbiology Findings: Microbiology, Last 48 Hours 02/26/19 21:21 Legionella Antigen - Final Urine,Clean Catch Streptococcus pneumoniae Antigen (M - Final 02/26/19 21:27 Blood Culture - Preliminary Peripheral Venipuncture Culture is incubating and being continuously monitored for growth. Final report to follow. 02/26/19 21:27 Blood Culture - Preliminary Peripheral Venipuncture Culture is incubating and being continuously monitored for growth. Final report to follow. - Clinical Findings Intake & Output: Intake & Output 02/27/19 02/28/19 02/28/19 23:59 07:59 15:59 Intake Total 340 / 1610 200 / 200 Output Total 0 / 300 Balance 340 / 1310 200 / 200 Consult Discharge Plan - Plan Referrals: [facility] [Outside]
[2019-02-28] MEDS: predniSONE 20 MG TABLET PO SCH (14:38)
--- NOTE | 2019-02-28 15:13 | Internal Med Progress Note ---
Hospitalist Progress Note - Encounter Date of Encounter: 02/28/19 Time of Encounter: 11:50 - Subjective Interval History: Patient seen and examined today. He states his dyspnea is unchanged. His O2 saturations are maintaining at about 95% with 2 L of oxygen. He is still coughing up blood-tinged sputum but not paarna hemoptysis. Today his white count is better patient informed about this. Therapy also saw the patient and cleared him for regular diet. - Exam Vitals: Temp Pulse Resp BP Pulse Ox 98.2 F 100 18 153/78 89 02/28/19 11:27 02/28/19 11:27 02/28/19 11:27 02/28/19 11:27 02/28/19 11:27 Exam: General: Well-developed man lying in bed with notable discomfort. Skin: Warm, flushed and dry. HEENT: Moist mucous membranes. No conjunctivae pallor. Neck: No JVD. No carotid bruits. No palpable thyroid. Chest: Clear to Auscltation with mild inspiratory wheezing sounds JEAN CLAUDE. Heart: Normal S1 & S2; rhythmic. No rubs or murmurs. Abdomen: Benign. Extremities: No clubbing, cyanosis or edema. No calf tenderness. Normal distal pulses. Neurological: Awake, alert and oriented to person, place and time. No focal deficits. Psych: Affect appropriate. - Assessment and Plan (1) Pneumonia Current Visit: Yes Status: Acute Assessment and Plan: Stable or slowly improving. Leukocytosis has improved. Oxygenation is stable. Continue IV Zosyn and doxycycline. Pulmonary consultation which has been requested due to hemoptysis. Continue neb treatments and Symbicort. Oxygen to be continued. Also patient is on clopidogrel for DVT prophylaxis. Will add sequential compression device. Lovenox was not given due to him up to hemoptysis. (2) Sepsis Current Visit: Yes Status: Resolved Assessment and Plan: Continue current management with IV antibiotics and monitor with labs and vitals. (3) HTN (hypertension) Current Visit: Yes Status: Chronic Assessment and Plan: Monitor blood pressure continue current medications. (4) Urinary tract infection Current Visit: Yes Status: Acute Assessment and Plan: The patient had significant pyuria on his urinalysis. The patient states that a few days ago he had burning urination The patient will be on Zosyn and doxycycline. Urine cultures may have been obtained at the referring facility and will need results of any such cultures. DVT Prophylaxis: SCDs and Plavix. - Time Spent with Patient Total time spent is greater than 50% in coordination of care (as documented) at patient's floor/unit and/or counseling patient: Internal Medicine: Result - Labs CBC & Chem 7: 02/28/19 05:23 02/28/19 05:23 Labs: Short CBC 02/28/19 Range/Units 05:23 WBC 8.4 (4.3-11.1) K/mcL Hgb 11.8 L (12.9-16.9) g/dL Hct 35.7 L (37.5-50.1) % Plt Count 158 (140-400) K/mcL Neutrophils # 7.7 (1.6-8.9) K/mcL BMP 02/28/19 05:23 Sodium 135 L Potassium 3.7 Chloride 102 Carbon Dioxide 22 L BUN 13 Creatinine 0.99 Glucose 97 Calcium 8.2 L - ABG Interpretation ABG results: PT/INR, D-dimer PT 14.5 Seconds (9.4-12.1) H 02/26/19 21:27 - Impressions Impressions Chest CT 02/27/19 17:44 IMPRESSION: Left-sided predominant consolidation, most notably within the left upper lobe, for which considerations include pulmonary hemorrhage, pneumonia, or less likely asymmetric edema. Small bilateral pleural effusions, left greater than right. AP window adenopathy, likely reactive. Follow-up to resolution recommended. Emphysema. Atherosclerosis, including coronary artery calcification. Bilateral gynecomastia. D/ / Luis Jim MD / Luis Jim MD Interpreting Provider: Luis Jim MD - VTE Reasons for not Prescribing Prophylaxis: Not indicated-Anticoagulated or INR therapeutic Consult Discharge Plan - Plan Referrals: [facility] [Outside] (1) Pneumonia Qualifiers: Qualified Code(s): J18.1 - Lobar pneumonia, unspecified organism (2) Sepsis Qualifiers: Qualified Code(s): A41.9 - Sepsis, unspecified organism (4) Urinary tract infection Qualifiers: Qualified Code(s): N30.00 - Acute cystitis without hematuria
[2019-02-28 15:40] LABS: INR 1.1; Prothrombin Time 12.3 Seconds (9.4-12.1)
[2019-02-28] MEDS ORDERED: Ipratropium/Albuterol Neb 3 ML IH SCH (16:00)
[2019-02-28] MEDS: Ipratropium/Albuterol Neb 3 ML IH SCH ×2 (16:10→19:44)
[2019-02-28] MEDS: Temazepam 15 MG CAPSULE PO SCH (21:04)
[2019-02-28] MEDS: OLANZapine 10 MG TAB.RAPDIS PO SCH (21:04)
[2019-03-01 01:25] LABS: Bilirubin,Urine Negative (Negative); Blood,Urine Negative (Negative); Clarity,Urine Clear (Clear); Color,Urine Yellow (Yellow); Glucose,Urine (UA) Normal (Normal); Ketones,Urine Negative (Negative); Leukocyte Esterase,Urine Negative (Negative); Nitrite,Urine Negative (Negative); PH,Urine 6.5 pH Units (5.0-8.0); Protein,Urine Negative (Neg-Trace); Specific Gravity,Urine 1.007 (1.010-1.025); Urobilinogen,Urine Normal (Normal)
[2019-03-01 01:40] LABS: Amphetamine Screen,Urine Negative ng/mL (Cutoff=1000); Barbiturate Screen,Urine Negative ng/mL (Cutoff=200); Benzodiazepines Screen,Urine Negative ng/mL (Cutoff=200); Cannabinoid Screen,Urine Negative ng/mL (Cutoff = 50); Cocaine Screen,Urine Negative ng/mL (Cutoff= 300); Opiate Screen,Urine Positive ng/mL (Cutoff=300); Phencyclidine Screen,Urine Negative ng/mL (Cutoff=25)
[2019-03-01 05:25] LABS: Hematocrit 34.7 % (37.5-50.1); Hemoglobin 11.5 g/dL (12.9-16.9); Immature Granulocytes % 0.3 % (0-4); Lymphocytes % 4.4 %; Mean Corpuscular HGB Conc 33.1 g/dL (31.6-35.5); Mean Corpuscular Hemoglobin 29.3 pg (28.0-33.3); Mean Corpuscular Volume 88.5 fL (83.0-100.0); Mean Platelet Volume 9.9 fL (9.4-12.4); Monocytes % 2.9 %; Platelet Count 163 K/mcL (140-400); Red Blood Count 3.92 M/mcL (4.19-5.50); Red Cell Distribution Width 14.3 % (11.5-14.5); Segmented Neutrophils % 92.4 %; White Blood Count 6.7 K/mcL (4.3-11.1)
[2019-03-01 05:26] LABS: Lymphocytes # 0.3 K/mcL (0.6-4.6); Monocytes # 0.2 K/mcL (0.0-1.3); Neutrophils # 6.2 K/mcL (1.6-8.9)
[2019-03-01 05:51] LABS: BUN/Creatinine Ratio 14 (6-26); Blood Urea Nitrogen 11 mg/dL (8-23); Calcium 8.6 mg/dL (8.6-10.3); Carbon Dioxide 21 mEq/L (23-29); Chloride 106 mEq/L (98-107); Glucose 136 mg/dL (70-105); Osmolality,Calculated 295 (280-300); Potassium 3.7 mEq/L (3.5-5.1); Sodium 142 mEq/L (136-145); eGFR For African Americans > 60 (> 60); eGFR For Non-African Americans > 60 (> 60)
--- NOTE | 2019-03-01 07:19 | Internal Med History&Physical ---
Date of Encounter: 03/01/19 Internal Medicine - H&P: HPI History of present illness: Mr. Caro is a 58 year old male Past Med Surg Social Fam HX - Past Medical History Medical history: COPD, coronary artery disease, hyperlipidemia, hypertension, other Additional medical history: CORONARY ARTERIOSCLEROSIS,RLS,BPH Psychiatric history: depression - Past Surgical History Surgical History: angioplasty/stent - Social History Smoking Status: Current every day smoker Smokeless Tobacco Status: No Alcohol use: none Drug use: marijuana - Family History Father Living Status: Hx Family Cancer: Yes Sister Living Status: Hx Family Cancer: Yes Brother Living Status: Hx Family Cancer: Yes Internal Medicine - H&P: Meds Aspirin 81 mg PO QAM 03/14/15 [History] Budesonide/Formoterol 160/4.5 [Symbicort 160/4.5] 1 puff IH BID PRN 03/14/15 [History] Calcium Carbonate/Vitamin D3 [Calcium 1,000 + D3 Caplet] 1 each PO BID 02/27/19 [History] Clopidogrel Bisulfate [Plavix] 75 mg PO DAILY 02/27/19 [History] Gabapentin [Neurontin] 600 mg PO TID 02/27/19 [History] Melatonin [Melatin] 6 mg PO HS 02/27/19 [History] Metoprolol Succinate [Toprol Xl] 12.5 mg PO DAILY 02/27/19 [History] OLANZapine [Zyprexa] 7.5 mg PO HS 02/27/19 [History] Omeprazole [PriLOSEC] 20 mg PO DAILY 02/27/19 [History] Ranitidine HCl [Zantac] 300 mg PO DAILY 02/27/19 [History] Simvastatin [Zocor] 40 mg PO HS 02/27/19 [History] rOPINIRole [Requip] 1 mg PO HS 02/27/19 [History] Allergy/AdvReac Type Severity Reaction Status Date / Time acetaminophen AdvReac Nausea Verified 02/27/19 15:04 [From Darvocet-N] propoxyphene AdvReac Nausea Verified 02/27/19 15:04 [From Darvocet-N] All Systems PM: A 10-system review of systems was performed and is negative for pertinent findings except as documented above in the HPI. - Constitutional Vitals: Temp Pulse Resp BP Pulse Ox 97.8 F 100 18 141/90 90 03/01/19 03:54 03/01/19 03:54 03/01/19 03:54 03/01/19 03:54 03/01/19 03:54 Internal Med - H&P Results - Labs CBC & Chem 7: 03/01/19 05:01 03/01/19 05:01 Labs: Short CBC 03/01/19 Range/Units 05:01 WBC 6.7 (4.3-11.1) K/mcL Hgb 11.5 L (12.9-16.9) g/dL Hct 34.7 L (37.5-50.1) % Plt Count 163 (140-400) K/mcL Neutrophils # 6.2 (1.6-8.9) K/mcL BMP 03/01/19 05:01 Sodium 142 Potassium 3.7 Chloride 106 Carbon Dioxide 21 L BUN 11 Creatinine 0.79 Glucose 136 H Calcium 8.6 Urine 03/01/19 Range/Units 01:14 Urine Color Yellow (Yellow) Urine Clarity Clear (Clear) Urine pH 6.5 (5.0-8.0) pH Units Ur Specific [place] 1.007 L (1.010-1.025) Urine Protein Negative (Neg-Trace) mg/dL Urine Glucose (UA) Normal (Normal) mg/dL - Impressions ITS Impressions Chest CT 02/27/19 17:44 IMPRESSION: Left-sided predominant consolidation, most notably within the left upper lobe, for which considerations include pulmonary hemorrhage, pneumonia, or less likely asymmetric edema. Small bilateral pleural effusions, left greater than right. AP window adenopathy, likely reactive. Follow-up to resolution recommended. Emphysema. Atherosclerosis, including coronary artery calcification. Bilateral gynecomastia. D/ / Luis Jim MD / Luis Jim MD Interpreting Provider: Luis Jim MD - Assessment and Plan (1) Pneumonia Current Visit: Yes Status: Acute Qualifiers: Pneumonia type: due to unspecified organism Laterality: left Lung location: upper lobe of lung Qualified Code(s): J18.1 - Lobar pneumonia, unspecified organism (2) Sepsis Current Visit: Yes Status: Resolved Qualifiers: Sepsis type: sepsis due to unspecified organism Sepsis acute organ dysfunction status: unspecified Qualified Code(s): A41.9 - Sepsis, unspecified organism (3) HTN (hypertension) Current Visit: Yes Status: Chronic (4) Urinary tract infection Current Visit: Yes Status: Acute Qualifiers: Urinary tract infection type: acute cystitis Hematuria presence: without hematuria Qualified Code(s): N30.00 - Acute cystitis without hematuria - Time Spent With Patient Total time spent is greater than 50% in coordination of care (as documented) at patient's floor/unit and/or counseling patient: - VTE Reasons for not Prescribing Prophylaxis: Not indicated-Anticoagulated or INR therapeutic
--- NOTE | 2019-03-01 07:24 | Internal Med Progress Note ---
Hospitalist Progress Note - Encounter Date of Encounter: 03/01/19 Time of Encounter: 08:40 - Subjective Interval History: Pt seen and examined today. He is feeling the same as yesterday with fluctuating levels of ebergy. Dyspnea is unchanged. Hemoptysis is getting better. No nausea or vomitting. - Exam Vitals: Temp Pulse Resp BP Pulse Ox 97.8 F 100 18 141/90 90 03/01/19 03:54 03/01/19 03:54 03/01/19 03:54 03/01/19 03:54 03/01/19 03:54 Exam: General: Well-developed man lying in bed with malaise. Skin: Warm, flushed and dry. HEENT: Moist mucous membranes. No conjunctivae pallor. Neck: No JVD. No carotid bruits. No palpable thyroid. Chest: Clear to Auscltation with decreased breath sounds and new insp crackles in R lung base.. Heart: Normal S1 & S2; rhythmic. No rubs or murmurs. Abdomen: Benign. Extremities: No clubbing, cyanosis or edema. No calf tenderness. Normal distal pulses. Neurological: Awake, alert and oriented to person, place and time. No focal deficits. Psych: Affect appropriate. - Assessment and Plan (1) Pneumonia Current Visit: Yes Status: Acute Assessment and Plan: Per CXR new infilterates. Pt does not feel better. Called Pulm and will be seen today to advise if abx need change. (2) Sepsis Current Visit: Yes Status: Resolved Assessment and Plan: Resolved. Cont to monitor. (3) HTN (hypertension) Current Visit: Yes Status: Chronic Assessment and Plan: Cont to monitor. Cont current tx. (4) Urinary tract infection Current Visit: Yes Status: Resolved Assessment and Plan: Improved with abx. New UA is clean. DVT Prophylaxis: SCDs and Plavix. - Time Spent with Patient Total time spent is greater than 50% in coordination of care (as documented) at patient's floor/unit and/or counseling patient: Internal Medicine: Result - Labs CBC & Chem 7: 03/01/19 05:01 03/01/19 05:01 Labs: Short CBC 03/01/19 Range/Units 05:01 WBC 6.7 (4.3-11.1) K/mcL Hgb 11.5 L (12.9-16.9) g/dL Hct 34.7 L (37.5-50.1) % Plt Count 163 (140-400) K/mcL Neutrophils # 6.2 (1.6-8.9) K/mcL BMP 03/01/19 05:01 Sodium 142 Potassium 3.7 Chloride 106 Carbon Dioxide 21 L BUN 11 Creatinine 0.79 Glucose 136 H Calcium 8.6 Urine 03/01/19 Range/Units 01:14 Urine Color Yellow (Yellow) Urine Clarity Clear (Clear) Urine pH 6.5 (5.0-8.0) pH Units Ur Specific [place] 1.007 L (1.010-1.025) Urine Protein Negative (Neg-Trace) mg/dL Urine Glucose (UA) Normal (Normal) mg/dL - ABG Interpretation ABG results: PT/INR, D-dimer PT 12.3 Seconds (9.4-12.1) H 02/28/19 15:15 - VTE Reasons for not Prescribing Prophylaxis: Not indicated-Anticoagulated or INR therapeutic Consult Discharge Plan - Plan Referrals: [facility] [Outside] (1) Pneumonia Qualifiers: Pneumonia type: due to unspecified organism Laterality: bilateral Lung location: upper lobe of lung Qualified Code(s): J18.1 - Lobar pneumonia, unspecified organism (2) Sepsis Qualifiers: Sepsis type: sepsis due to unspecified organism Sepsis acute organ dysfunction status: unspecified Qualified Code(s): A41.9 - Sepsis, unspecified organism (3) HTN (hypertension) Qualifiers: Hypertension type: essential hypertension Qualified Code(s): I10 - Essential (primary) hypertension (4) Urinary tract infection Qualifiers: Urinary tract infection type: acute cystitis Hematuria presence: without hematuria
[2019-03-01] MEDS: Ipratropium/Albuterol Neb 3 ML IH SCH ×4 (07:34→20:01)
[2019-03-01] MEDS: Budesonide/Formoterol 160/4.5 1 PUFF INH IH SCH ×2 (07:34→20:01)
[2019-03-01] MEDS: Aspirin 81 MG TAB.CHEW PO SCH (09:10)
[2019-03-01] MEDS: Isosorbide MONOnitrate (24 HR) 30 MG TAB.ER.24H PO SCH (09:10)
[2019-03-01] MEDS: rOPINIRole 0.25 MG TABLET PO SCH ×2 (09:10→20:00)
[2019-03-01] MEDS: predniSONE 20 MG TABLET PO SCH (09:10)
[2019-03-01] MEDS: Gabapentin 300 MG CAPSULE PO SCH ×2 (09:10→20:00)
[2019-03-01] MEDS: Famotidine 20 MG TABLET PO SCH (09:10)
[2019-03-01] MEDS: Piperacillin/Tazobactam 3.375 GM in 0.9 % Sodium Chloride Mini Bag 100 ML IVPB SCH ×3 (09:11→23:07)
[2019-03-01] MEDS: *HR* HYDROcodone/Acet 5/325 mg TABLET PO PRN (09:15)
--- NOTE | 2019-03-01 11:06 | Pulmonology Progress Note ---
Date of Encounter: 03/01/19 Time of Encounter: 11:01 Assessment and Plan (1) Hemoptysis Current Visit: Yes Status: Acute I suspect his hemoptysis is due to a severe community-acquired pneumonia with acute lung injury coupled with Plavix use. Alveolar hemorrhage syndrome (due to pulmonary capillaritis) is in the differential diagnosis as well, but seems less likely clinically. I did send off serologies for evaluation of possible pulmonary capillaritis. Worsening infiltrates bilaterally is consistent with acute lung injury/ARDS, which can also cause alveolar hemorrhage. We are continuing the Plavix for now (he reports developing angina when Plavix stopped in the past). Holding off on bronchoscopy as it would likely not microsoft exchange architect at this time, and potentially worsen his respiratory status. (2) Pneumonia Current Visit: Yes Status: Acute This is a severe community-acquired pneumonia. I am concerned for community- acquired MRSA. He is on vancomycin and Zosyn. Urinary antigens were negative. MRSA nasal probe was positive. Gram-positive cocci noted on the Gram stain from his sputum. We will follow up culture results. Qualifiers: Pneumonia type: due to unspecified organism Laterality: left Lung location: upper lobe of lung Qualified Code(s): J18.1 - Lobar pneumonia, unspecified organism (3) COPD with acute exacerbation Current Visit: Yes Status: Acute Agree with scheduled bronchodilators and antibiotics. I have added steroids to treat severe community acquired pneumonia, COPD exacerbation, and early acute lung injury. (4) Abnormal CT scan, chest Current Visit: Yes Status: Acute Impressive left-sided infiltrates superimposed on emphysematous changes. There is some likely reactive adenopathy noted as well. Given his smoking history, I would recommend a repeat CT scan in 6-8 weeks to ensure radiographic resolution. (5) Coronary artery disease Current Visit: Yes Status: Acute The patient reports having coronary stenting in 2012. The patient reports that he had previously discontinued the Plavix for a surgery, but he developed chest pain after the Plavix was held. He is requesting a cardiology consultation for evaluation regarding ongoing Plavix use. I discussed this with the primary service. Comment: Pulmonary team will continue to follow. Plan discussed with the primary service. Qualifiers: Coronary Disease-Associated Artery/Lesion type: unspecified vessel or lesion type [place] vs. transplanted heart: [place] heart Associated angina: angina presence unspecified Qualified Code(s): I25.10 - Atherosclerotic heart disease of [place] coronary artery without angina pectoris Subjective Principal diagnosis: Hemoptysis Interval history: No acute overnight events. Patient is requiring more oxygen via nasal cannula and continues to have blood-streaked sputum. No fevers or chills. He denies any worsening dyspnea. He overall feels about the same. Objective PUL Vital signs: Last Vital Signs Temp 97.4 F L 03/01/19 10:27 Pulse 102 03/01/19 10:27 Resp 18 03/01/19 10:27 BP 149/79 03/01/19 10:27 Pulse Ox 91 03/01/19 10:27 General appearance: alert, other (No acute distress but mildly increased work of breathing at rest) Eyes: nonicteric ENT: oropharynx moist Auscultation: left: rhonchi Cardiovascular: regular rate and rhythm Gastrointestinal: soft, non-tender, non-distended Integumentary: normal Extremities: no cyanosis, no edema normal mental status, non-focal exam mood appropriate, affect normal Results - Laboratory Findings CBC and BMP: 03/01/19 05:01 03/01/19 05:01 PT/INR, D-dimer PT 12.3 Seconds (9.4-12.1) H 02/28/19 15:15 Abnormal lab findings: Abnormal lab results WBC 12.0 K/mcL (4.3-11.1) H 02/27/19 06:24 RBC 3.92 M/mcL (4.19-5.50) L 03/01/19 05:01 Hgb 11.5 g/dL (12.9-16.9) L 03/01/19 05:01 Hct 34.7 % (37.5-50.1) L 03/01/19 05:01 Neutrophils # 11.2 K/mcL (1.6-8.9) H 02/27/19 06:24 Lymphocytes # 0.3 K/mcL (0.6-4.6) L 03/01/19 05:01 PT 12.3 Seconds (9.4-12.1) H 02/28/19 15:15 Sodium 135 mEq/L (136-145) L 02/28/19 05:23 Chloride 109 mEq/L (98-107) H 02/27/19 06:24 Carbon Dioxide 21 mEq/L (23-29) L 03/01/19 05:01 Glucose 136 mg/dL (70-105) H 03/01/19 05:01 Calculated Osmolality 275 (280-300) L 02/26/19 21:27 Calcium 8.2 mg/dL (8.6-10.3) L 02/28/19 05:23 Serum Total Protein 5.8 g/dL (6.4-8.9) L 02/26/19 21:27 Albumin 3.4 g/dL (3.5-5.7) L 02/26/19 21:27 Ur Specific [place] 1.007 (1.010-1.025) L 03/01/19 01:14 Nasal Screen MRSA (PCR) DETECTED (Not Detect) A 02/28/19 14:42 Urine Opiates Screen Positive ng/mL (Zuqoer=[id number]) H 03/01/19 01:14 - Microbiology Findings Microbiology Findings: Microbiology, Last 48 Hours 02/28/19 17:18 Sputum Culture - Preliminary Sputum - Clinical Findings Intake & Output: Intake & Output 02/28/19 03/01/19 03/01/19 23:59 07:59 15:59 Intake Total 830 / 1130 350 / 470 120 / 470 Output Total 350 / 850 Balance 480 / 280 350 / 470 120 / 470 Weight 72.9 kg - VTE Reasons for not Prescribing Prophylaxis: Not indicated-Anticoagulated or INR therapeutic Consult Discharge Plan - Plan Referrals: [facility] [Outside]
[2019-03-01] MEDS: traMADol 50 MG TABLET PO PRN (15:45)
[2019-03-01] MEDS: OLANZapine 10 MG TAB.RAPDIS PO SCH (20:00)
[2019-03-01] MEDS: Temazepam 15 MG CAPSULE PO SCH (20:01)
[2019-03-02] MEDS: Ipratropium/Albuterol Neb 3 ML IH SCH ×4 (07:21→20:17)
[2019-03-02] MEDS: Budesonide/Formoterol 160/4.5 1 PUFF INH IH SCH ×2 (07:21→20:17)
[2019-03-02 07:28] LABS: Basophils % 0.1 %; Hematocrit 33.6 % (37.5-50.1); Hemoglobin 11.1 g/dL (12.9-16.9); Lymphocytes # 0.6 K/mcL (0.6-4.6); Lymphocytes % 8.5 %; Mean Corpuscular Hemoglobin 29.2 pg (28.0-33.3); Mean Corpuscular Volume 88.4 fL (83.0-100.0); Mean Platelet Volume 9.9 fL (9.4-12.4); Monocytes # 0.4 K/mcL (0.0-1.3); Neutrophils # 5.8 K/mcL (1.6-8.9); Platelet Count 174 K/mcL (140-400); Red Cell Distribution Width 14.4 % (11.5-14.5); Segmented Neutrophils % 84.4 %; White Blood Count 6.8 K/mcL (4.3-11.1)
[2019-03-02 07:44] LABS: BUN/Creatinine Ratio 17 (6-26); Blood Urea Nitrogen 12 mg/dL (8-23); Calcium 8.3 mg/dL (8.6-10.3); Carbon Dioxide 26 mEq/L (23-29); Chloride 108 mEq/L (98-107); Glucose 125 mg/dL (70-105); Osmolality,Calculated 293 (280-300); Potassium 2.9 mEq/L (3.5-5.1); Sodium 141 mEq/L (136-145); eGFR For African Americans > 60 (> 60); eGFR For Non-African Americans > 60 (> 60)
[2019-03-02 09:13] LABS: ABG Base Excess 0 mEq/L (-2 to 3); ABG HCO3 24 mEq/L (21-27); ABG Oxygen Saturation 90 % (95-98); ABG PCO2 36 mmHg (35-45); ABG PH 7.44 pH Units (7.32-7.45); ABG PO2 57 mmHg (85-104); ABG TCO2 25 mEq/L (20-26)
[2019-03-02] MEDS: Aspirin 81 MG TAB.CHEW PO SCH (09:38)
[2019-03-02] MEDS: Famotidine 20 MG TABLET PO SCH (09:38)
[2019-03-02] MEDS: Isosorbide MONOnitrate (24 HR) 30 MG TAB.ER.24H PO SCH (09:38)
[2019-03-02] MEDS: rOPINIRole 0.25 MG TABLET PO SCH ×2 (09:38→21:26)
[2019-03-02] MEDS: Piperacillin/Tazobactam 3.375 GM in 0.9 % Sodium Chloride Mini Bag 100 ML IVPB SCH ×3 (09:39→23:59)
[2019-03-02] MEDS: Gabapentin 300 MG CAPSULE PO SCH ×2 (09:39→21:27)
[2019-03-02] MEDS: predniSONE 20 MG TABLET PO SCH (09:39)
[2019-03-02] MEDS ORDERED: Isovue-370 500 ML BOTTLE IVP ONE (10:39)
[2019-03-02] MEDS ORDERED: SIMVASTATIN 40 MG PO SCH (11:00)
[2019-03-02] MEDS: Potassium Chloride Elixir 20 MEQ/15 ML UDC PO SCH ×2 (11:15→15:06)
[2019-03-02 11:40] LABS: Magnesium 2.1 mg/dL (1.6-2.6)
[2019-03-02 11:42] LABS: Troponin I < 0.03 ng/mL (< 0.04)
--- NOTE | 2019-03-02 13:34 | Pulmonology Progress Note ---
Date of Encounter: 03/02/19 Time of Encounter: 13:27 Assessment and Plan (1) Hemoptysis Current Visit: Yes Status: Acute I suspect his hemoptysis is due to a severe community-acquired pneumonia with acute lung injury coupled with Plavix use. Alveolar hemorrhage syndrome (due to pulmonary capillaritis) is in the differential diagnosis as well, but seems less likely clinically. I did send off serologies for evaluation of this, and they are pending. Worsening infiltrates bilaterally is consistent with acute lung injury/ARDS, which can also cause alveolar hemorrhage. We are continuing the Plavix for now (he reports developing angina when Plavix stopped in the past). Holding off on bronchoscopy as it would likely not document management analyst at this t [facility], and potentially would compromise his respiratory status. (2) Pneumonia Current Visit: Yes Status: Acute This is a severe community-acquired pneumonia. I am concerned for community- acquired MRSA. He is on vancomycin. Urinary antigens were negative. MRSA nasal probe was positive. Gram-positive cocci consistent with staph noted on the Gram stain from his sputum. We will follow up culture results. Qualifiers: Pneumonia type: due to unspecified organism Laterality: bilateral Lung location: upper lobe of lung Qualified Code(s): J18.1 - Lobar pneumonia, unspecified organism (3) COPD with acute exacerbation Current Visit: Yes Status: Acute Agree with scheduled bronchodilators and antibiotics. I have added steroids to treat severe community acquired pneumonia, COPD exacerbation, and early acute lung injury. (4) Abnormal CT scan, chest Current Visit: Yes Status: Acute Impressive left-sided infiltrates superimposed on emphysematous changes. There is some likely reactive adenopathy noted as well. Given his smoking history, I would recommend a repeat CT scan in 6-8 weeks to ensure radiographic resolution. (5) Coronary artery disease Current Visit: Yes Status: Acute The patient reports having coronary stenting in 2012. The patient reports that he had previously discontinued the Plavix for a surgery, but he developed chest pain after the Plavix was held. He is requesting a cardiology consultation for evaluation regarding ongoing Plavix use. I discussed this with the primary service. Comment: Pulmonary team will continue to follow. Plan discussed with the primary service. Qualifiers: Coronary Disease-Associated Artery/Lesion type: unspecified vessel or lesion type [place] vs. transplanted heart: [place] heart Associated angina: angina presence unspecified Qualified Code(s): I25.10 - Atherosclerotic heart disease of [place] coronary artery without angina pectoris Subjective Principal diagnosis: Hemoptysis Interval history: No acute overnight events. The patient reports less blood has been noted in his sputum. No fevers or chills. He denies any worsening dyspnea. He overall feels about the same. Objective PUL Vital signs: Last Vital Signs Temp 96.8 F L 03/02/19 11:02 Pulse 103 03/02/19 11:02 Resp 21 03/02/19 11:02 BP 160/83 03/02/19 11:02 Pulse Ox 94 03/02/19 11:02 General: no acute distress but moderate work of breathing at rest Eyes: nonicteric ENT: oropharynx moist Neck: supple, no lymphadenopathy Lungs: Bilateral rhonchi left greater than right Cardiovascular: regular rate and rhythm Gastrointestinal: normoactive bowel sounds, soft, non-tender, non-distended Integumentary: normal Extremities: no cyanosis, no edema Musculoskeletal: no deformities Neuro: normal mental status, non-focal exam Psych: mood appropriate, affect normal Results - Laboratory Findings CBC and BMP: 03/02/19 07:10 03/02/19 07:10 ABG ABG pH 7.44 pH Units (7.32-7.45) 03/01/19 23:36 ABG pCO2 36 mmHg (35-45) 03/01/19 23:36 ABG pO2 57 mmHg (85-104) L 03/01/19 23:36 ABG O2 Saturation 90 % (95-98) L 03/01/19 23:36 PT/INR, D-dimer PT 12.3 Seconds (9.4-12.1) H 02/28/19 15:15 Abnormal lab findings: Abnormal lab results WBC 12.0 K/mcL (4.3-11.1) H 02/27/19 06:24 RBC 3.80 M/mcL (4.19-5.50) L 03/02/19 07:10 Hgb 11.1 g/dL (12.9-16.9) L 03/02/19 07:10 Hct 33.6 % (37.5-50.1) L 03/02/19 07:10 Neutrophils # 11.2 K/mcL (1.6-8.9) H 02/27/19 06:24 Lymphocytes # 0.3 K/mcL (0.6-4.6) L 03/01/19 05:01 PT 12.3 Seconds (9.4-12.1) H 02/28/19 15:15 ABG pO2 57 mmHg (85-104) L 03/01/19 23:36 ABG O2 Saturation 90 % (95-98) L 03/01/19 23:36 Sodium 135 mEq/L (136-145) L 02/28/19 05:23 Potassium 2.9 mEq/L (3.5-5.1) L 03/02/19 07:10 Chloride 108 mEq/L (98-107) H 03/02/19 07:10 Carbon Dioxide 21 mEq/L (23-29) L 03/01/19 05:01 Glucose 125 mg/dL (70-105) H 03/02/19 07:10 Calculated Osmolality 275 (280-300) L 02/26/19 21:27 Calcium 8.3 mg/dL (8.6-10.3) L 03/02/19 07:10 Serum Total Protein 5.8 g/dL (6.4-8.9) L 02/26/19 21:27 Albumin 3.4 g/dL (3.5-5.7) L 02/26/19 21:27 Ur Specific [place] 1.007 (1.010-1.025) L 03/01/19 01:14 Nasal Screen MRSA (PCR) DETECTED (Not Detect) A 02/28/19 14:42 Urine Opiates Screen Positive ng/mL ([id number]=326) H 03/01/19 01:14 - Microbiology Findings Microbiology Findings: Microbiology, Last 48 Hours 02/28/19 17:18 Sputum Culture - Preliminary Sputum Gram Positive Cocci - Clinical Findings Intake & Output: Intake & Output 03/01/19 03/02/19 03/02/19 23:59 07:59 15:59 Intake Total 350 / 920 350 / 350 Balance 350 / 920 350 / 350 Weight 79.8 kg - VTE Reasons for not Prescribing Prophylaxis: Not indicated-Anticoagulated or INR therapeutic Consult Discharge Plan - Plan Referrals: [facility] [Outside]
[2019-03-02] MEDS: Ketorolac 30 MG/ML VIAL IVP PRN (19:50)
--- NOTE | 2019-03-02 20:52 | Internal Med Progress Note ---
Hospitalist Progress Note - Encounter Date of Encounter: 03/02/19 Time of Encounter: 10:49 - Subjective Interval History: Patient overnight complained of worsening shortness of breath, and acute chest pain and was noted to be tachycardic. Patient states that the shortness of breath improves with laying down. Chest pain is left-sided nonradiating worsen ed with movement lasted for a few minutes with some 30. Intermittently with no exacerbation. Patient EKG showed normal sinus rhythm. Troponin came back negative. Patient admitted to history of DVTs and troponin and was on previously and admits of history of CAD with stent is not currently dual a ntiplatelet therapy. Patient overall hemoptysis has improved. Patient otherwise continues with productive cough and nausea vomiting or abdominal pain.. - Exam Vitals: Temp Pulse Resp BP Pulse Ox 97.8 F 92 18 154/88 93 03/02/19 19:43 03/02/19 19:43 03/02/19 20:17 03/02/19 19:43 03/02/19 20:17 Exam: General Appearance: Appearing as age, well-nourished in acute distress. Head: Atraumatic normocephalic Eyes: Conjunctivae pale with no erythema. Anicteric. Mouth: moist mucus membranes. Neck: no thyromegally. Trachea midline. Heart: Tachycardic, no murmurs. Capillary refill 2 seconds Lungs: accessory muscle usage, lungs bilateral crackles more prominent basilar. Abdomen: Non-distended, hyperactive bowel sounds. non-tender to palpation, no hepatomegally. No guarding. - Assessment and Plan (1) Urinary tract infection Current Visit: Yes Status: Resolved (2) Pneumonia Current Visit: Yes Status: Acute Assessment and Plan: Per CXR new infilterates. Pt does not feel better. Called Pulm and will be seen today to advise if abx need change. (3) Sepsis Current Visit: Yes Status: Resolved (4) HTN (hypertension) Current Visit: Yes Status: Chronic - Summary of Assessment and Plan Summary of Assessment and Plan: sepsis secondary to community acquired pneumonia: Patient remains afebrile with improved leukocytosis. Patient's sputum culture grew gram-positive cocci: Continue vancomycin and de-escalate once sputum culture results. Patient might continue to progress to ARDS andmight need intubation. We will continue to monitor Hemoptysis Current Visit: Yes Status: Acute likely multifactorial secondary to pneumonia and on anticoagulation. continuing the Plavix for now (he reports developing angina when Plavix stopped in the past). Pulmonology on board. Appreciate recommendations. ACute hypoxic respiratory failure: multifactorial, however due to moderate risk of PE and having current chest pain. CTA was ordered and showed No dissection, or PE. Worsening PNA was noted. Echocardiogram was orderred. Will continue to monitor. COPD with acute exacerbation Current Visit: Yes Status: Acute scheduled bronchodilators and antibiotics. prednisone 40mg on day 3. Abnormal CT scan, chest Current Visit: Yes Status: Acute Will need a repeat CT scan in 6-8 weeks to ensure radiographic resolution. ACute chest pain: resolved ilikely secondary to coughing. EKG NSR with no sign of ischemia and troponin will be trending currently negative. Patient is on plavix, simvastatin, Nitrate, and metoprolol. If patient has another episode of chest pain or elevated of troponin. will consult cardiology inregards to cardiac disease and the need for plavix. HTN (hypertension) Cont to monitor. Cont current tx. Urinary tract infection Current Visit: Yes Status: Resolved resolved. - Time Spent with Patient Total time spent is greater than 50% in coordination of care (as documented) at patient's floor/unit and/or counseling patient: Greater than 35 minutes Plan of Care Discussed with: patient Internal Medicine: Result - Labs CBC & Chem 7: 03/02/19 07:10 03/02/19 07:10 Labs: Short CBC 03/02/19 Range/Units 07:10 WBC 6.8 (4.3-11.1) K/mcL Hgb 11.1 L (12.9-16.9) g/dL Hct 33.6 L (37.5-50.1) % Plt Count 174 (140-400) K/mcL Neutrophils # 5.8 (1.6-8.9) K/mcL BMP 03/02/19 07:10 Sodium 141 Potassium 2.9 L Chloride 108 H Carbon Dioxide 26 BUN 12 Creatinine 0.72 Glucose 125 H Calcium 8.3 L Cardiac Enzymes 03/02/19 Range/Units 07:10 Troponin I < 0.03 (< 0.04) ng/mL - ABG Interpretation ABG results: ABG ABG pH 7.44 pH Units (7.32-7.45) 03/01/19 23:36 ABG pCO2 36 mmHg (35-45) 03/01/19 23:36 ABG pO2 57 mmHg (85-104) L 03/01/19 23:36 ABG O2 Saturation 90 % (95-98) L 03/01/19 23:36 PT/INR, D-dimer PT 12.3 Seconds (9.4-12.1) H 02/28/19 15:15 - Impressions Impressions Chest X-Ray 03/01/19 23:02 IMPRESSION: [id number] multifocal pneumonia has moderately increased from 02/26/2019. There is underlying emphysema. D/ / Amilcar Jim MD / Amilcar Jim MD Interpreting Provider: Amilcar Jim MD Chest CTA 03/02/19 10:39 IMPRESSION: No evidence for pulmonary emboli. Worsening infiltrate seen within the left upper lobe with developing hazy ground-glass infiltrates and bronchiectasis seen within the right upper lobe, right lower lobe and left lower lobe. Stable mediastinal adenopathy. D/ / Clayton Sellers MD / Clayton Sellers MD Interpreting Provider: Clayton Sellers MD - VTE Reasons for not Prescribing Prophylaxis: Not indicated-Anticoagulated or INR therapeutic Consult Discharge Plan - Plan Referrals: [facility] [Outside] (1) Urinary tract infection Qualifiers: Urinary tract infection type: acute cystitis Hematuria presence: without hematuria Qualified Code(s): N30.00 - Acute cystitis without hematuria (2) Pneumonia Qualifiers: Pneumonia type: due to unspecified organism Laterality: bilateral Lung location: upper lobe of lung Qualified Code(s): J18.1 - Lobar pneumonia, unspecified organism (3) Sepsis Qualifiers: Sepsis type: sepsis due to unspecified organism Sepsis acute organ dysfu nction status: unspecified Qualified Code(s): A41.9 - Sepsis, unspecified organism (4) HTN (hypertension) Qualifiers: Hypertension type: essential hypertension Qualified Code(s): I10 - Essential (primary) hypertension
[2019-03-02] MEDS: Melatonin 3 MG TABLET PO SCH (21:00)
[2019-03-02] MEDS: Temazepam 15 MG CAPSULE PO SCH (21:27)
[2019-03-02] MEDS: OLANZapine 10 MG TAB.RAPDIS PO SCH (21:28)
[2019-03-03] MEDS: GuaiFENesin Liq 200 MG/10 ML UDC PO PRN ×3 (01:29→21:07)
[2019-03-03] MEDS: Ketorolac 30 MG/ML VIAL IVP PRN ×2 (04:36→21:08)
[2019-03-03 04:44] LABS: Hematocrit 31.5 % (37.5-50.1); Hemoglobin 10.3 g/dL (12.9-16.9); Immature Granulocytes % 1.3 % (0-4); Lymphocytes # 0.7 K/mcL (0.6-4.6); Lymphocytes % 13.9 %; Mean Corpuscular HGB Conc 32.7 g/dL (31.6-35.5); Mean Corpuscular Hemoglobin 29.5 pg (28.0-33.3); Mean Corpuscular Volume 90.3 fL (83.0-100.0); Mean Platelet Volume 9.7 fL (9.4-12.4); Monocytes # 0.4 K/mcL (0.0-1.3); Monocytes % 7.1 %; Neutrophils # 4.1 K/mcL (1.6-8.9); Platelet Count 204 K/mcL (140-400); Red Blood Count 3.49 M/mcL (4.19-5.50); Red Cell Distribution Width 14.5 % (11.5-14.5); Segmented Neutrophils % 77.7 %; White Blood Count 5.3 K/mcL (4.3-11.1)
[2019-03-03 05:07] LABS: Alanine Aminotransferase 87 Units/L (7-52); Albumin 2.8 g/dL (3.5-5.7); Albumin/Globulin Ratio 1.1 (1.1-2.2); Alkaline Phosphatase 85 Units/L (34-104); Aspartate Amino Transferase 85 Units/L (13-39); BUN/Creatinine Ratio 17 (6-26); Bilirubin,Total 0.6 mg/dL (0.3-1.0); Blood Urea Nitrogen 13 mg/dL (8-23); Calcium 8.9 mg/dL (8.6-10.3); Carbon Dioxide 27 mEq/L (23-29); Chloride 107 mEq/L (98-107); Globulin 2.5 g/dL (2.4-3.5); Glucose 122 mg/dL (70-105); Osmolality,Calculated 293 (280-300); Potassium 3.7 mEq/L (3.5-5.1); Sodium 141 mEq/L (136-145); Total Protein 5.3 g/dL (6.4-8.9); Troponin I < 0.03 ng/mL (< 0.04); eGFR For African Americans > 60 (> 60); eGFR For Non-African Americans > 60 (> 60)
[2019-03-03 05:22] LABS: Thyroid Stimulating Hormone 0.366 mcIU/mL (0.340-5.600)
[2019-03-03] MEDS: Ipratropium/Albuterol Neb 3 ML IH SCH ×5 (07:49→20:11)
[2019-03-03] MEDS: Budesonide/Formoterol 160/4.5 1 PUFF INH IH SCH ×2 (07:49→20:11)
[2019-03-03 07:56] LABS: ANA IgG by ELISA NONE DETECTED (None Detected)
[2019-03-03] MEDS: Piperacillin/Tazobactam 3.375 GM in 0.9 % Sodium Chloride Mini Bag 100 ML IVPB SCH (09:10)
[2019-03-03] MEDS: Aspirin 81 MG TAB.CHEW PO SCH (09:18)
[2019-03-03] MEDS: Gabapentin 300 MG CAPSULE PO SCH ×2 (09:18→21:08)
[2019-03-03] MEDS: rOPINIRole 0.25 MG TABLET PO SCH ×2 (09:18→21:08)
[2019-03-03] MEDS: predniSONE 20 MG TABLET PO SCH (09:19)
[2019-03-03] MEDS: Isosorbide MONOnitrate (24 HR) 30 MG TAB.ER.24H PO SCH (09:19)
[2019-03-03] MEDS: Metoprolol XL (24 HR) Succ 25 MG TAB.ER.24H PO SCH (09:19)
[2019-03-03] MEDS: Cholecalciferol (D-3) 1,000 UNIT (25MCG) TABLET PO SCH (09:19)
[2019-03-03] MEDS: Famotidine 20 MG TABLET PO SCH (09:20)
[2019-03-03] MEDS: *HR* OxyCODONE Immed Rel 5 MG TABLET PO PRN (09:41)
--- NOTE | 2019-03-03 10:44 | Internal Med Progress Note ---
Hospitalist Progress Note - Encounter Date of Encounter: 03/03/19 Time of Encounter: 10:39 - Subjective Interval History: Patient overnight stated that he is worsened from yesterday. Patient reported breathing continues to not be at his baseline of being in no oxygen. Patient continues to have chest pain with exertion that improves with rest left side nonradiating. Patient's EKG and troponins was discussed and were negative. We will consult cardiology for chest pain and the need for Plavix in the setting of having hemoptysis and history of stent placement. Patient otherwise is able tolerate oral intake, no complaints of nausea, fever, chills, vomiting, bowel pain or diarrhea. - Exam Vitals: Temp Pulse Resp BP Pulse Ox 97.4 F L 76 20 158/84 90 03/03/19 07:02 03/03/19 07:02 03/03/19 09:44 03/03/19 07:02 03/03/19 09:44 Exam: General Appearance: Appearing as age, well-nourished in acute distress. Head: Atraumatic normocephalic Eyes: Conjunctivae pale with no erythema. Anicteric. Mouth: moist mucus membranes with no ulcers. On nonrebreather. Neck: no thyromegally. Trachea midline. Heart: Tachycardic, no murmurs. Capillary refill 2 seconds Lungs: accessory muscle usage, lungs bilateral crackles more prominent basilar. Abdomen: Non-distended, hyperactive bowel sounds. non-tender to palpation, no hepatomegally. No guarding. - Summary of Assessment and Plan Summary of Assessment and Plan: 1.sepsis secondary to MRSA pneumonia: Patient remains afebrile with improved leukocytosis. Patient's sputum culture grew MRSA: Blood cultures no growth thus far Continue vancomycin and de-escalate once sputum culture results. Patient might continue to progress to ARDS andmight need intubation. We will continue to monitor Hemoptysis likely multifactorial secondary to pneumonia and on anticoagulation. Plavix was stopped and continued ASA. Will continue to moniter. Pulmonology on board. Appreciate Recommendations. Cardiology on board. Appreciate Recommendations. ACute hypoxic respiratory failure: multifactorial, patient continues to require oxygen 6 L satting at 90% baseline is not oxygen dependence Worsening PNA was noted. Echocardiogram showed EF 60-60% with no pulmonary hypertension or wall motion abnormalities. Repeat ABG in the AM. COPD with acute exacerbation scheduled bronchodilators and antibiotics. Prednisone 40mg on day 4. Abnormal CT scan, chest Will need a repeat CT scan in 6-8 weeks to ensure radiographic resolution. ACute chest pain: Recurring same presentation as yesterday and with exertion today. EKG NSR with no sign of ischemia and troponin trended negative. Patient is on ASA, simvastatin, Nitrate, and metoprolol. Plavix discontinued. Cardiology was consulted. Appreciate recommendations. HTN (hypertension) Uncontrolled. Currently on isosorbide, losartan, metoprolol succinate, will add HTCZ. Cont to monitor. Cont current tx. PRN for >185/110 BP. Acute normocytic anemia: Multifactorial concern for Plavix faces hemoptysis. No other evidence of blee ding. Anemia panel ordered We will continue to follow. Hypokalemia: Resolved Elevated LFTs: ALT:AST ratio the same. Likely secondary from sepsis we will continue to follow if patient continues to rise we will order ultrasound liver, hepatitis panel. Generalized weakness: PT OT consult Urinary tract infection resolved. DVT prophylaxis: Heparin dispo: Inpatient likely >2 days stay. - Time Spent with Patient Total time spent is greater than 50% in coordination of care (as documented) at patient's floor/unit and/or counseling patient: Internal Medicine: Result - Labs CBC & Chem 7: 03/03/19 04:29 03/03/19 04:29 Labs: Short CBC 03/03/19 Range/Units 04:29 WBC 5.3 (4.3-11.1) K/mcL Hgb 10.3 L (12.9-16.9) g/dL Hct 31.5 L (37.5-50.1) % Plt Count 204 (140-400) K/mcL Neutrophils # 4.1 (1.6-8.9) K/mcL BMP 03/02/19 03/03/19 07:10 04:29 Sodium 141 141 Potassium 2.9 L 3.7 D Chloride 108 H 107 Carbon Dioxide 26 27 BUN 12 13 Creatinine 0.72 0.75 Glucose 125 H 122 H Calcium 8.3 L 8.9 Cardiac Enzymes 03/02/19 03/02/19 03/03/19 Range/Units 07:10 21:25 04:29 Troponin I < 0.03 < 0.03 < 0.03 (< 0.04) ng/mL Liver Function 03/03/19 Range/Units 04:29 Total Bilirubin 0.6 (0.3-1.0) mg/dL AST 85 H (13-39) Units/L ALT 87 H (7-52) Units/L Alkaline Phosphatase 85 (34-104) Units/L Albumin 2.8 L (3.5-5.7) g/dL - ABG Interpretation ABG results: ABG ABG pH 7.44 pH Units (7.32-7.45) 03/01/19 23:36 ABG pCO2 36 mmHg (35-45) 03/01/19 23:36 ABG pO2 57 mmHg (85-104) L 03/01/19 23:36 ABG O2 Saturation 90 % (95-98) L 03/01/19 23:36 PT/INR, D-dimer PT 12.3 Seconds (9.4-12.1) H 02/28/19 15:15 - Impressions Impressions Chest CTA 03/02/19 10:39 IMPRESSION: No evidence for pulmonary emboli. Worsening infiltrate seen within the left upper lobe with developing hazy ground-glass infiltrates and bronchiectasis seen within the right upper lobe, right lower lobe and left lower lobe. Stable mediastinal adenopathy. D/ / Clayton Sellers MD / Clayton Sellers MD Interpreting Provider: Clayton Sellers MD Echocardiogram 03/03/19 10:39 Impressions: LVEF 60-65%. Normal LV chamber size, wall thickness and function. Normal right ventricular size with mild dysfunction. Mild tricuspid regurgitation. No pulmonary hypertension. Left Ventricular Wall Motion: Rest Echo Findings All wall segments showed normal motion. Findings: Study Quality * Technically adequate exam. ECG Findings * Normal sinus rhythm. Left Ventricle * LVEF 60-65%. * Normal LV chamber size, wall thickness and systolic function. * Normal left ventricular diastolic function. Right Ventricle * Normal right ventricular size with mild dysfunction. Left Atrium * Normal left atrial size. Right Atrium * Normal right atrial size. Interatrial Septum * Interatrial septum not well evaluated. Aortic Valve * Trileaflet aortic valve with normal function. * No aortic stenosis. * No aortic regurgitation. Mitral Valve * Normal mitral valve structure. * No mitral stenosis. * Trace mitral regurgitation. Tricuspid Valve * Normal tricuspid valve structure. * No tricuspid stenosis. * Mild tricuspid regurgitation. * Estimated RVSP is 33 mmHg. * Estimated RA pressure is 3 mmHg. * No pulmonary hypertension. Pulmonic Valve * Pulmonic valve is not well visualized. * No pulmonic stenosis. * Trace pulmonic regurgitation. Aorta * Normally sized aortic root. Pericardium * The pericardium appears normal. IVC * The IVC is not dilated. * > 50% respiratory change - VTE Reasons for not Prescribing Prophylaxis: Not indicated-Anticoagulated or INR therapeutic Consult Discharge Plan - Plan Referrals: [facility] [Outside]
--- NOTE | 2019-03-03 11:05 | Cardiology Consult Note ---
Date of Encounter: 03/03/19 Time of Encounter: 09:30 Assessment and Plan (1) Hemoptysis Current Visit: Yes Status: Acute 1 day, likely due to PNA and bronchiectasis. Hb 10 from 12, cardiac stent 2013. - can hold plavix, if severe hemoptysis, consider holding ASA temporarily (2) Bronchiectasis Current Visit: Yes Status: Acute Qualifiers: Bronchiectasis type: with acute lower respiratory infection Qualified Code(s): J47.0 - Bronchiectasis with acute lower respiratory infection (3) Respiratory failure Current Visit: Yes Status: Acute on ventimask - rec pul consult for resp failure, bronchiectasis on CT with hemoptysis Qualifiers: Chronicity: acute Respiratory failure complication: hypoxia Qualified Code(s): J96.01 - Acute respiratory failure with hypoxia (4) Pneumonia Current Visit: Yes Status: Acute Qualifiers: Pneumonia type: due to unspecified organism Laterality: bilateral Lung location: upper lobe of lung Qualified Code(s): J18.1 - Lobar pneumonia, unspecified organism (5) Coronary artery disease Current Visit: Yes Status: Acute 2014 stentsx2, on DAPT since. No angina at baseline. Neg trop. Pleuritic chest pain due to cough. Now hemoptysis. - hold plavix - pls obtain 2013 [facility] report from [facility] Qualifiers: Coronary Disease-Associated Artery/Lesion type: unspecified vessel or lesion type [place] vs. transplanted heart: [place] heart Associated angina: without angina Qualified Code(s): I25.10 - Atherosclerotic heart disease of [place] coronary artery without angina pectoris Discussion w patient/family: The assessment and plan as outlined above was discussed with the patient and/or family members who expressed understanding and agreement. All questions were answered. Thank you for involving us in the care of your patient. Please call with any questions. History of Present Illness Consult date: 03/03/19 Requesting physician: Alexandra Mcguire Consult reason: Hemoptysis, on DAPT Chief complaint: cough History of present illness: Mr. Caro is a 58 year old male ho CAD stentsx2 2013 on DAPT since (as per pt), COPD, HTN, HLD. P/w worsening cough, dyspnea several wks with mild pleuritic chest pain. Imp hypoxemia, PNA, bronchiectasis, COPD exacerbation. Consulted for new hemoptysis starting yesterday with Hb drop 12-10s, ho DAPT for ARTEMIO. No further stenting after 2013, no angina at baseline. Denied syncope, dizziness, palpitations, LE edema. Trop neg. [id number] ECG SR, short CA (known), no ischemic changes. Tele no events. [id number] TTE LVEF 60-65%, Normal LV chamber size, wall thickness and function. Normal right ventricular size with mild dysfunction. Mild tricuspid regurgitation. No pulmonary hypertension. Pharm SPECT [id number] no ischemia or infarct, EF>70% Past Med Surg Social Fam HX - Past Medical History Medical history: COPD, coronary artery disease, hyperlipidemia, hypertension, other Additional medical history: CORONARY ARTERIOSCLEROSIS,RLS,BPH Psychiatric history: depression - Past Surgical History Surgical History: angioplasty/stent - Social History Smoking Status: Current every day smoker Smokeless Tobacco Status: No Alcohol use: none Drug use: marijuana - Family History Father Living Status: Hx Family Cancer: Yes Sister Living Status: Hx Family Cancer: Yes Brother Living Status: Hx Family Cancer: Yes - Additional Family History Additional family history: non-contributory Medications and Allergies Aspirin 81 mg PO QAM 03/14/15 [History] Budesonide/Formoterol 160/4.5 [Symbicort 160/4.5] 1 puff IH BID PRN 03/14/15 [History] Calcium Carbonate/Vitamin D3 [Calcium 1,000 + D3 Caplet] 1 each PO BID 02/27/19 [History] Clopidogrel Bisulfate [Plavix] 75 mg PO DAILY 02/27/19 [History] Gabapentin [Neurontin] 600 mg PO TID 02/27/19 [History] Melatonin [Melatin] 6 mg PO HS 02/27/19 [History] Metoprolol Succinate [Toprol Xl] 12.5 mg PO DAILY 02/27/19 [History] OLANZapine [Zyprexa] 7.5 mg PO HS 02/27/19 [History] Omeprazole [PriLOSEC] 20 mg PO DAILY 02/27/19 [History] Ranitidine HCl [Zantac] 300 mg PO DAILY 02/27/19 [History] Simvastatin [Zocor] 40 mg PO HS 02/27/19 [History] rOPINIRole [Requip] 1 mg PO HS 02/27/19 [History] Allergy/AdvReac Type Severity Reaction Status Date / Time acetaminophen AdvReac Nausea Verified 02/27/19 15:04 [From Darvocet-N] propoxyphene AdvReac Nausea Verified 02/27/19 15:04 [From Darvocet-N] All Systems Review: The remainder of the systems were reviewed and are negative - Cardiovascular Cardiovascular: as per HPI - Respiratory Respiratory: cough, dyspnea, hemoptysis Physical Examination Vital Signs, Last 4 Hours Temp Pulse Resp BP Pulse Ox 03/03/19 09:44 20 90 03/03/19 07:02 97.4 F L 76 16 158/84 97 Other: General: mild respiratory distress on ventimask, drowsy, cogent HEENT: anicteric Neck: no JVD, no bruits Chest: coarse BS B/L, scattered rhonchi, no W/C Heart: RR, S1/S2, no S3/S4, M/G/R Abdominal: BS +, soft, ND, NT Peripheral Pulses: radial pulse 2+ B/L, DP 2+ B/L Skin/Extremities: no cyanosis, no LE edema Neurological: grossly non-focal. Results 03/03/19 04:29 03/03/19 04:29 Lab Results 03/02/19 03/02/19 03/03/19 07:10 21:25 04:29 WBC 5.3 Hgb 10.3 L Hct 31.5 L Plt Count 204 Sodium 141 Potassium 2.9 L Chloride 108 H Carbon Dioxide 26 BUN 12 Creatinine 0.72 Glucose 125 H Calcium 8.3 L Magnesium 2.1 Total Bilirubin AST ALT Alkaline Phosphatase Troponin I < 0.03 < 0.03 TSH 03/03/19 04:29 WBC Hgb Hct Plt Count Sodium 141 Potassium 3.7 D Chloride 107 Carbon Dioxide 27 BUN 13 Creatinine 0.75 Glucose 122 H Calcium 8.9 Magnesium Total Bilirubin 0.6 AST 85 H ALT 87 H Alkaline Phosphatase 85 Troponin I < 0.03 TSH 0.366 - Imaging and Cardiology Stress Test: report reviewed Echo: image reviewed Other Results: Tele reviewed - EKG Interpretation EKG results cardiology: personally reviewed Consult Discharge Plan - Plan Referrals: [facility] [Outside]
--- NOTE | 2019-03-03 12:23 | Pulmonology Progress Note ---
Date of Encounter: 03/03/19 Time of Encounter: 12:23 Assessment and Plan (1) Hemoptysis Current Visit: Yes Status: Acute I suspect his hemoptysis is due to a severe community-acquired pneumonia with acute lung injury coupled with Plavix use. Alveolar hemorrhage syndrome (due to pulmonary capillaritis) is in the differential diagnosis as well, but seems less likely clinically. I did send off serologies for evaluation of this, and they are negative to date. Worsening infiltrates bilaterally noted on serial chest imaging is consistent with acute lung injury/ARDS, which can cause alveolar hemorrhage. We are continuing the Plavix for now (he reports developing angina when Plavix stopped in the past), and the hemoptysis seems to be improving. Per cardiology, okay to stop Plavix if he were to develop worsening hemoptysis. 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 (2) Pneumonia Current Visit: Yes Status: Acute This is a severe community-acquired pneumonia with MRSA. He is on vancomycin, which should be continued while hospitalized. I recommend a 14 day total course of antibiotics directed towards MRSA. Stop date would be 03/13/2019. We can continue intravenous vancomycin while admitted to the hospital, and linezolid would be reasonable by mouth agent to finish the course of antibiotics at the time of discharge. Qualifiers: Pneumonia type: due to unspecified organism Laterality: bilateral Lung location: upper lobe of lung Qualified Code(s): J18.1 - Lobar pneumonia, unspecified organism (3) COPD with acute exacerbation Current Visit: Yes Status: Acute Agree with scheduled bronchodilators and antibiotics. I have added prednisone 5 days to treat severe community acquired pneumonia, COPD exacerbation, and early acute lung injury. (4) Abnormal CT scan, chest Current Visit: Yes Status: Acute Impressive left-sided infiltrates superimposed on emphysematous changes. There is some likely reactive adenopathy noted as well. Given his smoking history, I would recommend a repeat CT scan in 6-8 weeks to ensure radiographic resolution. (5) Coronary artery disease Current Visit: Yes Status: Acute The patient reports having coronary stenting in 2012. The patient reports that he had previously discontinued the Plavix for a surgery, but he developed chest pain after the Plavix was held. He is requesting a cardiology consultation for evaluation regarding ongoing Plavix use. As above, cardiology okay with discontinuing Plavix if the patient develops worsening hemoptysis. Comment: Pulmonary team will continue to follow. Qualifiers: Coronary Disease-Associated Artery/Lesion type: unspecified vessel or lesion type [place] vs. transplanted heart: [place] heart Associated angina: without angina Qualified Code(s): I25.10 - Atherosclerotic heart disease of [place] coronary artery without angina pectoris Subjective Principal diagnosis: Hemoptysis Interval history: No acute overnight events. Patient reports chest discomfort. It is mostly pleuritic in nature. He reports the hemoptysis continues to improve. Objective PUL Vital signs: Last Vital Signs Temp 97.7 F 03/03/19 11:00 Pulse 75 03/03/19 11:00 Resp 16 03/03/19 11:00 BP 171/95 03/03/19 11:00 Pulse Ox 98 03/03/19 11:00 General: no acute distress but moderate work of breathing at rest Eyes: nonicteric ENT: oropharynx moist Neck: supple, no lymphadenopathy Lungs: Bilateral rhonchi left greater than right Cardiovascular: regular rate and rhythm Gastrointestinal: normoactive bowel sounds, soft, non-tender, non-distended Integumentary: normal Extremities: no cyanosis, no edema Musculoskeletal: no deformities Neuro: normal mental status, non-focal exam Psych: mood appropriate, affect normal Results - Laboratory Findings CBC and BMP: 03/03/19 04:29 03/03/19 04:29 ABG ABG pH 7.44 pH Units (7.32-7.45) 03/01/19 23:36 ABG pCO2 36 mmHg (35-45) 03/01/19 23:36 ABG pO2 57 mmHg (85-104) L 03/01/19 23:36 ABG O2 Saturation 90 % (95-98) L 03/01/19 23:36 PT/INR, D-dimer PT 12.3 Seconds (9.4-12.1) H 02/28/19 15:15 Abnormal lab findings: Abnormal lab results WBC 12.0 K/mcL (4.3-11.1) H 02/27/19 06:24 RBC 3.49 M/mcL (4.19-5.50) L 03/03/19 04:29 Hgb 10.3 g/dL (12.9-16.9) L 03/03/19 04:29 Hct 31.5 % (37.5-50.1) L 03/03/19 04:29 Neutrophils # 11.2 K/mcL (1.6-8.9) H 02/27/19 06:24 Lymphocytes # 0.3 K/mcL (0.6-4.6) L 03/01/19 05:01 PT 12.3 Seconds (9.4-12.1) H 02/28/19 15:15 ABG pO2 57 mmHg (85-104) L 03/01/19 23:36 ABG O2 Saturation 90 % (95-98) L 03/01/19 23:36 Sodium 135 mEq/L (136-145) L 02/28/19 05:23 Potassium 2.9 mEq/L (3.5-5.1) L 03/02/19 07:10 Chloride 108 mEq/L (98-107) H 03/02/19 07:10 Carbon Dioxide 21 mEq/L (23-29) L 03/01/19 05:01 Glucose 122 mg/dL (70-105) H 03/03/19 04:29 Calculated Osmolality 275 (280-300) L 02/26/19 21:27 Calcium 8.3 mg/dL (8.6-10.3) L 03/02/19 07:10 AST 85 Units/L (13-39) H 03/03/19 04:29 ALT 87 Units/L (7-52) H 03/03/19 04:29 Serum Total Protein 5.3 g/dL (6.4-8.9) L 03/03/19 04:29 Albumin 2.8 g/dL (3.5-5.7) L 03/03/19 04:29 Ur Specific [place] 1.007 (1.010-1.025) L 03/01/19 01:14 Nasal Screen MRSA (PCR) DETECTED (Not Detect) A 02/28/19 14:42 Urine Opiates Screen Positive ng/mL (Lclzav=720) H 03/01/19 01:14 - Microbiology Findings Microbiology Findings: Microbiology, Last 48 Hours 02/28/19 17:18 Sputum Culture - Final Sputum Methicillin Resistant S.aureus - Clinical Findings Intake & Output: Intake & Output 03/02/19 03/03/19 03/03/19 23:59 07:59 15:59 Intake Total 100 / 670 350 / 350 Output Total 250 / 400 550 / 550 Balance -150 / 270 -200 / -200 Weight 74 kg - VTE Reasons for not Prescribing Prophylaxis: Not indicated-Anticoagulated or INR therapeutic Consult Discharge Plan - Plan Referrals: [facility] [Outside]
[2019-03-03] MEDS: *HR* Heparin 5,000 UNIT/ML VIAL SQ SCH ×2 (14:17→21:07)
[2019-03-03] MEDS ORDERED: GI Cocktail 40 ML EACH PO ONE (15:50)
[2019-03-03] MEDS: hydroCHLOROthiazide 25 MG TABLET PO SCH (18:57)
[2019-03-03] MEDS: OLANZapine 10 MG TAB.RAPDIS PO SCH (21:08)
[2019-03-03] MEDS: Temazepam 15 MG CAPSULE PO SCH (21:08)
[2019-03-03] MEDS: Melatonin 3 MG TABLET PO SCH (21:09)
[2019-03-04 04:22] LABS: ABG Base Excess 4 mEq/L (-2 to 3); ABG HCO3 29 mEq/L (21-27); ABG Oxygen Saturation 86 % (95-98); ABG PCO2 42 mmHg (35-45); ABG PH 7.45 pH Units (7.32-7.45); ABG PO2 50 mmHg (85-104); ABG TCO2 30 mEq/L (20-26)
[2019-03-04 05:18] LABS: Immature Reticulocyte % 25.7 % (11.0-38.0); Retculocyte # 0.05 M/mcL (0.05-0.10); Reticulocyte % 1.3 % (1.6-2.8)
--- NOTE | 2019-03-04 05:25 | Event Note ---
Date of Encounter: 03/04/19 Time of Encounter: 05:24 Notified by RT of ABG results. Discussed with Dr Wiley, will trial high flow oxygen therapy and repeat ABG at 0900. Notified RT and nurse. Nurse to notify of any changes.
[2019-03-04 05:37] LABS: % Iron Saturation 16 % (20-55); Iron 32 mcg/dL (65-175); Transferrin 144 mg/dL (203-362)
[2019-03-04] MEDS: *HR* Heparin 5,000 UNIT/ML VIAL SQ SCH ×3 (05:51→21:16)
[2019-03-04 05:56] LABS: Ferritin 240 ng/mL (20-250)
[2019-03-04 05:58] LABS: Folate 3.3 ng/mL (3.0-16.0)
[2019-03-04] MEDS: Ipratropium/Albuterol Neb 3 ML IH SCH ×4 (07:46→20:01)
[2019-03-04] MEDS: Budesonide/Formoterol 160/4.5 1 PUFF INH IH SCH ×2 (07:49→20:01)
[2019-03-04 08:02] LABS: ABG Base Excess 4 mEq/L (-2 to 3); ABG HCO3 27 mEq/L (21-27); ABG Oxygen Saturation 96 % (95-98); ABG PCO2 35 mmHg (35-45); ABG PH 7.49 pH Units (7.32-7.45); ABG PO2 76 mmHg (85-104); ABG TCO2 28 mEq/L (20-26)
[2019-03-04] MEDS: Aspirin 81 MG TAB.CHEW PO SCH (09:31)
[2019-03-04] MEDS: predniSONE 20 MG TABLET PO SCH (09:31)
[2019-03-04] MEDS: rOPINIRole 0.25 MG TABLET PO SCH ×2 (09:31→21:16)
[2019-03-04] MEDS: Gabapentin 300 MG CAPSULE PO SCH ×2 (09:31→21:17)
[2019-03-04] MEDS: Cholecalciferol (D-3) 1,000 UNIT (25MCG) TABLET PO SCH (09:31)
[2019-03-04] MEDS: hydroCHLOROthiazide 25 MG TABLET PO SCH (09:32)
[2019-03-04] MEDS: Famotidine 20 MG TABLET PO SCH (09:32)
[2019-03-04] MEDS: Metoprolol XL (24 HR) Succ 25 MG TAB.ER.24H PO SCH (09:32)
[2019-03-04] MEDS: Isosorbide MONOnitrate (24 HR) 30 MG TAB.ER.24H PO SCH (09:33)
[2019-03-04] MEDS: *HR* OxyCODONE Immed Rel 5 MG TABLET PO PRN (09:49)
--- NOTE | 2019-03-04 09:54 | Pulmonology Progress Note ---
<Jerry Yoder - Last Filed: 03/04/19 17:28> Date of Encounter: 03/04/19 Assessment and Plan (1) Hemoptysis Current Visit: Yes Status: Acute Hemoptysis - Improving - Scant hemoptysis with cough - Likely secondary to PNA/Plavix use/Acute lung injury Plan: - Continue plavix, will discontinue if hemoptysis worsens. - Pt instructed to collect any hemoptysis in bedside cup - No acute need for bronchoscopy (2) Pneumonia Current Visit: Yes Status: Acute CAP - Severe community-acquired pneumonia - MRSA Plan: - Continue IV vanc - 14 day coarse through 03/13/19 Qualifiers: Pneumonia type: due to methicillin-resistant Staphylococcus aureus (MRSA) Laterality: bilateral Lung location: upper lobe of lung Qualified Code(s): J15.212 - Pneumonia due to Methicillin resistant Staphylococcus aureus (3) COPD with acute exacerbation Current Visit: Yes Status: Acute Hx of COPD - Acute exacerbation - Requiring supplemental O2 - No O2 use at home Plan: - Continue high-flow O2 - O2 goal of >88% - Duonebs q4 - Simbicort BID (4) Abnormal CT scan, chest Current Visit: Yes Status: Acute CT chest - Left-sided infiltrates on emphysematous changes. - Secondary to COPD and MRSA PNA (5) Coronary artery disease Current Visit: Yes Status: Acute CAD - On plavix - OK to continue per DC, OK to DC is Hemoptysis worsens. Qualifiers: Coronary Disease-Associated Artery/Lesion type: unspecified vessel or lesion type [place] vs. transplanted heart: [place] heart Associated angina: without angina Qualified Code(s): I25.10 - Atherosclerotic heart disease of [place] coronary artery without angina pectoris Subjective Interval history: Pt seen and examined. Afebrile. No overnight events. Pt reports scant hemoptysis with cough. Pt remains on High leonardo oxygen, saturating well in the high 90's. Pt able to speak and sit up in bed comfortably without becoming SOB. Objective PUL Vital signs: Last Vital Signs Temp 98.2 F 03/04/19 10:39 Pulse 101 03/04/19 10:39 Resp 18 03/04/19 11:01 BP 157/81 03/04/19 10:39 Pulse Ox 94 03/04/19 11:01 Gen: Vitals noted. No acute distress. On High flow O2, 45L, 60% FiO2 Eyes: anicteric sclerae, moist conjunctivae. HENT: Atraumatic, normocephalic; oropharynx clear with moist mucous membranes and no mucosal ulcerations Neck: Trachea midline; supple, no thyromegaly or lymphadenopathy Cardiac: RRR, no murmurs, rubs or gallops, S1/S2 Pulmonary: Coarse breath sounds BL. Decreased right-sided breath sounds Abdomen: soft, nontender, no rigidity or guarding. No masses or hepatosplenomegaly MSK: ROM intact, no joint swelling noted Extremities: no BLE edema, nontender calf, no cyanosis or clubbing Skin: Normal temperature, turgor and texture; no rash, ulcers or subcutaneous nodules Neuro: moves all extremities, no focal deficits. Psych: Appropriate mood and behavior. A&Ox3 Results - Laboratory Findings CBC and BMP: 03/03/19 04:29 03/03/19 04:29 ABG ABG pH 7.49 pH Units (7.32-7.45) H 03/04/19 08:00 ABG pCO2 35 mmHg (35-45) 03/04/19 08:00 ABG pO2 76 mmHg (85-104) L 03/04/19 08:00 ABG O2 Saturation 96 % (95-98) 03/04/19 08:00 PT/INR, D-dimer PT 12.3 Seconds (9.4-12.1) H 02/28/19 15:15 Abnormal lab findings: Abnormal lab results WBC 12.0 K/mcL (4.3-11.1) H 02/27/19 06:24 RBC 3.49 M/mcL (4.19-5.50) L 03/03/19 04:29 Hgb 10.3 g/dL (12.9-16.9) L 03/03/19 04:29 Hct 31.5 % (37.5-50.1) L 03/03/19 04:29 Neutrophils # 11.2 K/mcL (1.6-8.9) H 02/27/19 06:24 Lymphocytes # 0.3 K/mcL (0.6-4.6) L 03/01/19 05:01 Percent Retic 1.3 % (1.6-2.8) L 03/04/19 04:44 PT 12.3 Seconds (9.4-12.1) H 02/28/19 15:15 ABG pH 7.49 pH Units (7.32-7.45) H 03/04/19 08:00 ABG pO2 76 mmHg (85-104) L 03/04/19 08:00 ABG HCO3 29 mEq/L (21-27) H 03/04/19 04:15 ABG Total CO2 28 mEq/L (20-26) H 03/04/19 08:00 ABG O2 Saturation 86 % (95-98) L 03/04/19 04:15 ABG Base Excess 4 mEq/L (-2 to 3) H 03/04/19 08:00 Sodium 135 mEq/L (136-145) L 02/28/19 05:23 Potassium 2.9 mEq/L (3.5-5.1) L 03/02/19 07:10 Chloride 108 mEq/L (98-107) H 03/02/19 07:10 Carbon Dioxide 21 mEq/L (23-29) L 03/01/19 05:01 Glucose 122 mg/dL (70-105) H 03/03/19 04:29 Calculated Osmolality 275 (280-300) L 02/26/19 21:27 Calcium 8.3 mg/dL (8.6-10.3) L 03/02/19 07:10 Iron 32 mcg/dL (65-175) L 03/04/19 04:44 % Saturation 16 % (20-55) L 03/04/19 04:44 Transferrin 144 mg/dL (203-362) L 03/04/19 04:44 AST 85 Units/L (13-39) H 03/03/19 04:29 ALT 87 Units/L (7-52) H 03/03/19 04:29 Serum Total Protein 5.3 g/dL (6.4-8.9) L 03/03/19 04:29 Albumin 2.8 g/dL (3.5-5.7) L 03/03/19 04:29 Vitamin B12 166 pg/mL (250-1100) L 03/04/19 04:44 Ur Specific [place] 1.007 (1.010-1.025) L 03/01/19 01:14 Nasal Screen MRSA (PCR) DETECTED (Not Detect) A 02/28/19 14:42 Urine Opiates Screen Positive ng/mL (Zwzqth=109) H 03/01/19 01:14 - Microbiology Findings Microbiology Findings: Microbiology, Last 48 Hours 02/26/19 21:27 Blood Culture - Final Peripheral Venipuncture No growth. Final report. 02/26/19 21:27 Blood Culture - Final Peripheral Venipuncture No growth. Final report. 02/28/19 17:18 Sputum Culture - Final Sputum Methicillin Resistant S.aureus - Clinical Findings Intake & Output: Intake & Output 03/03/19 03/04/19 03/04/19 23:59 07:59 15:59 Intake Total 250 / 600 250 / 370 120 / 370 Output Total 450 / 1450 1750 / 2000 250 / 2000 Balance -200 / -850 -1500 / -1630 -130 / -1630 Weight 73.7 kg Consult Discharge Plan - Plan Referrals: [facility] [Outside] <Jadyn Gaviria - Last Filed: 03/04/19 18:38> Date of Encounter: 03/04/19 Time of Encounter: 09:00 Subjective Principal diagnosis: Hemoptysis Objective PUL Vital signs: Last Vital Signs Temp 98.8 F 03/04/19 07:09 Pulse 99 03/04/19 07:09 Resp 15 03/04/19 07:09 BP 172/92 03/04/19 07:09 Pulse Ox 96 03/04/19 07:09 Results - Laboratory Findings CBC and BMP: 03/03/19 04:29 03/03/19 04:29 ABG ABG pH 7.49 pH Units (7.32-7.45) H 03/04/19 08:00 ABG pCO2 35 mmHg (35-45) 03/04/19 08:00 ABG pO2 76 mmHg (85-104) L 03/04/19 08:00 ABG O2 Saturation 96 % (95-98) 03/04/19 08:00 PT/INR, D-dimer PT 12.3 Seconds (9.4-12.1) H 02/28/19 15:15 Abnormal lab findings: Abnormal lab results WBC 12.0 K/mcL (4.3-11.1) H 02/27/19 06:24 RBC 3.49 M/mcL (4.19-5.50) L 03/03/19 04:29 Hgb 10.3 g/dL (12.9-16.9) L 03/03/19 04:29 Hct 31.5 % (37.5-50.1) L 03/03/19 04:29 Neutrophils # 11.2 K/mcL (1.6-8.9) H 02/27/19 06:24 Lymphocytes # 0.3 K/mcL (0.6-4.6) L 03/01/19 05:01 Percent Retic 1.3 % (1.6-2.8) L 03/04/19 04:44 PT 12.3 Seconds (9.4-12.1) H 02/28/19 15:15 ABG pH 7.49 pH Units (7.32-7.45) H 03/04/19 08:00 ABG pO2 76 mmHg (85-104) L 03/04/19 08:00 ABG HCO3 29 mEq/L (21-27) H 03/04/19 04:15 ABG Total CO2 28 mEq/L (20-26) H 03/04/19 08:00 ABG O2 Saturation 86 % (95-98) L 03/04/19 04:15 ABG Base Excess 4 mEq/L (-2 to 3) H 03/04/19 08:00 Sodium 135 mEq/L (136-145) L 02/28/19 05:23 Potassium 2.9 mEq/L (3.5-5.1) L 03/02/19 07:10 Chloride 108 mEq/L (98-107) H 03/02/19 07:10 Carbon Dioxide 21 mEq/L (23-29) L 03/01/19 05:01 Glucose 122 mg/dL (70-105) H 03/03/19 04:29 Calculated Osmolality 275 (280-300) L 02/26/19 21:27 Calcium 8.3 mg/dL (8.6-10.3) L 03/02/19 07:10 Iron 32 mcg/dL (65-175) L 03/04/19 04:44 % Saturation 16 % (20-55) L 03/04/19 04:44 Transferrin 144 mg/dL (203-362) L 03/04/19 04:44 AST 85 Units/L (13-39) H 03/03/19 04:29 ALT 87 Units/L (7-52) H 03/03/19 04:29 Serum Total Protein 5.3 g/dL (6.4-8.9) L 03/03/19 04:29 Albumin 2.8 g/dL (3.5-5.7) L 03/03/19 04:29 Vitamin B12 166 pg/mL (250-1100) L 03/04/19 04:44 Ur Specific [place] 1.007 (1.010-1.025) L 03/01/19 01:14 Nasal Screen MRSA (PCR) DETECTED (Not Detect) A 02/28/19 14:42 Urine Opiates Screen Positive ng/mL (Ctzowu=628) H 03/01/19 01:14 - Microbiology Findings Microbiology Findings: Microbiology, Last 48 Hours 02/26/19 21:27 Blood Culture - Final Peripheral Venipuncture No growth. Final report. 02/26/19 21:27 Blood Culture - Final Peripheral Venipuncture No growth. Final report. 02/28/19 17:18 Sputum Culture - Final Sputum Methicillin Resistant S.aureus - Clinical Findings Intake & Output: Intake & Output 03/03/19 03/04/19 03/04/19 23:59 07:59 15:59 Intake Total 250 / 600 250 / 250 Output Total 450 / 1450 1750 / 1750 Balance -200 / -850 -1500 / -1500 Weight 73.7 kg - VTE Reasons for not Prescribing Prophylaxis: Not indicated-Anticoagulated or INR therapeutic - Attending Attestation I saw and evaluated this patient and my medical decision-making was reviewed with the Resident Physician. I agree with the documented findings, disposition and treatment plan as described except to the extent set forth below. We in dependently had [id number] contact with the patient Patient seen and examined at bedside Labs, radiology, chart personally reviewed. Patient with acute respiratory failure with advanced COPD found to have MRSA pneumonia complicated by hemoptysis hemoptysis minimal no need for bronchoscopy at this time to continue with COPD exacerbation management management of bronchodilators and steroids to continue with the broad-spectrum antibiotics for MRSA pneumonia at least for 14 days. Pulmonary will follow.
[2019-03-04 10:52] LABS: GBM IgG Multiplex Bead Assay 0 AU/mL (0-19); Glomerular Basement Memb IgG NEGATIVE (Negative); Serine Protease-3 Antibody 1 AU/mL (0-19)
--- NOTE | 2019-03-04 12:12 | Internal Med Progress Note ---
Hospitalist Progress Note - Encounter Date of Encounter: 03/04/19 Time of Encounter: 12:10 - Subjective Interval History: Patient seen and examined at bedside [id number]. Patient continues to be short of breath however patient reported improvement from yesterday. When patient's ABG came back to be hypoxic patient was switched to high flow nasal cannula. Patient otherwise denies any fever, chills, nausea, vomiting, chest pain, abdominal pain, diarrhea. - Exam Vitals: Temp Pulse Resp BP Pulse Ox 98.2 F 101 18 157/81 94 03/04/19 10:39 03/04/19 10:39 03/04/19 11:01 03/04/19 10:39 03/04/19 11:01 Exam: General Appearance: Appearing as age, well-nourished in acute distress. Head: Atraumatic normocephalic Eyes: Conjunctivae pale with no erythema. Anicteric. Mouth: moist mucus membranes with no ulcers. On high flow nasal cannula Neck: no thyromegally. Trachea midline. Heart: Tachycardic, no murmurs. Capillary refill 2 seconds Lungs: accessory muscle usage, lungs bilateral crackles more prominent basilar. Abdomen: Non-distended, hyperactive bowel sounds. non-tender to palpation, no hepatomegally. No guarding. DVT Prophylaxis: SCDs . - Summary of Assessment and Plan Summary of Assessment and Plan: 1.sepsis secondary to MRSA pneumonia: Patient remains afebrile with improved leukocytosis. Patient's sputum culture grew MRSA: Blood cultures no growth thus far Continue vancomycin. Sensitivite to linezolid. However patient is not improving. Will await pulmonary recommendations. Will check CXR tomorrow. Concern for ARDS and might need intubation. Hemoptysis likely multifactorial secondary to pneumonia and on anticoagulation. continued ASA. Will continue to monitor. Pulmonology on board. Appreciate Recommendations. Cardiology on board. Appreciate Recommendations. Acute hypoxic respiratory failure: multifactorial, patient worsened and is currently on HFNC. Echocardiogram showed EF 60-60% with no pulmonary hypertension or wall motion abnormalities. ABG showed worsening hypoxia. Repeat CXR in the AM. COPD with acute exacerbation scheduled bronchodilators and antibiotics. Prednisone 40mg on day 5. Will D/c if ok with pulmonary. Abnormal CT scan, chest Will need a repeat CT scan in 6-8 weeks to ensure radiographic resolution. ACute chest pain: Recurring same presentation as yesterday and with exertion today. EKG NSR with no sign of ischemia and troponin trended negative. Patient is on ASA, simvastatin, Nitrate, and metoprolol. Plavix discontinued. Cardiology was consulted. Appreciate recommendations. Improved after GI cocktail yesterday given. PPI ordered. HTN (hypertension) controlled. on isosorbide, losartan, metoprolol succinate, and HTCZ. Cont to monitor. Cont current tx. PRN for >185/110 BP. Acute normocytic anemia: Multifactorial concern for Plavix faces hemoptysis. No other evidence of bleeding. Anemia panel ordered We will continue to follow. Hypokalemia: Resolved Elevated LFTs: ALT:AST ratio the same. Likely secondary from sepsis we will continue to follow if patient continues to rise we will order ultrasound liver, hepatitis panel. Vitamin B deficiency: Started B12 replacement. Generalized weakness: PT OT consult Urinary tract infection resolved. DVT prophylaxis: Heparin dispo: Inpatient likely >2 days stay. - Time Spent with Patient Total time spent is greater than 31 minutes 50% in coordination of care (as documented) at patient's floor/unit and/or counseling patient: Greater than 35 minutes Plan of Care Discussed with: patient Internal Medicine: Result - Labs CBC & Chem 7: 03/03/19 04:29 03/03/19 04:29 - ABG Interpretation ABG results: ABG ABG pH 7.49 pH Units (7.32-7.45) H 03/04/19 08:00 ABG pCO2 35 mmHg (35-45) 03/04/19 08:00 ABG pO2 76 mmHg (85-104) L 03/04/19 08:00 ABG O2 Saturation 96 % (95-98) 03/04/19 08:00 PT/INR, D-dimer PT 12.3 Seconds (9.4-12.1) H 02/28/19 15:15 - VTE Reasons for not Prescribing Prophylaxis: Not indicated-Anticoagulated or INR therapeutic Consult Discharge Plan - Plan Referrals: [facility] [Outside]
[2019-03-04] MEDS ORDERED: Lactulose Oral Soln 20 GM/30 ML UDC PO ONE (13:25)
[2019-03-04] MEDS: *HR* HYDROcodone/Acet 5/325 mg TABLET PO PRN (16:27)
--- NOTE | 2019-03-04 17:01 | Electrocardiograph Report ---
[place] [id number] Test Date: 2019-03-01 Pat Name: Sukhjinder Caro Department: 115 Room: 3A55 Gender: M Spray Painter: : 1960 Requested By: Luis Wiley Order Number: [id number] Reading MD: Grecia Salvador Measurements Intervals Welcome Rate: 93 P: 65 PA: 113 QRS: -4 QRSD: 94 T: 37 QT: 373 QTc: 423 Interpretive Statements SINUS RHYTHM WITH SHORT PA INTERVAL POSSIBLE LEFT ATRIAL ENLARGEMENT Electronically Signed On 03-04-2019 16:59:39 EDT by Grecia Salvador
[2019-03-04] MEDS: Melatonin 3 MG TABLET PO SCH (21:16)
[2019-03-04] MEDS: Temazepam 15 MG CAPSULE PO SCH (21:17)
[2019-03-04] MEDS: traMADol 50 MG TABLET PO PRN (21:17)
[2019-03-04] MEDS: OLANZapine 5 MG TAB.RAPDIS PO SCH (21:17)
[2019-03-05] MEDS: *HR* OxyCODONE Immed Rel 5 MG TABLET PO PRN (02:04)
[2019-03-05] MEDS: *HR* Heparin 5,000 UNIT/ML VIAL SQ SCH ×3 (05:09→20:56)
[2019-03-05] MEDS: Ipratropium/Albuterol Neb 3 ML IH SCH ×4 (07:29→19:36)
[2019-03-05] MEDS: Budesonide/Formoterol 160/4.5 1 PUFF INH IH SCH ×2 (07:48→19:36)
[2019-03-05] MEDS: Cholecalciferol (D-3) 1,000 UNIT (25MCG) TABLET PO SCH (08:30)
[2019-03-05] MEDS: Isosorbide MONOnitrate (24 HR) 30 MG TAB.ER.24H PO SCH (08:30)
[2019-03-05] MEDS: predniSONE 20 MG TABLET PO SCH (08:30)
[2019-03-05] MEDS: Famotidine 20 MG TABLET PO SCH (08:30)
[2019-03-05] MEDS: rOPINIRole 0.25 MG TABLET PO SCH ×2 (08:30→20:54)
[2019-03-05] MEDS: traMADol 50 MG TABLET PO PRN (08:30)
[2019-03-05] MEDS: Folic Acid 1 MG TABLET PO SCH (08:31)
[2019-03-05] MEDS: hydroCHLOROthiazide 25 MG TABLET PO SCH (08:31)
[2019-03-05] MEDS: Aspirin 81 MG TAB.CHEW PO SCH (08:31)
[2019-03-05] MEDS: Metoprolol XL (24 HR) Succ 25 MG TAB.ER.24H PO SCH (08:31)
[2019-03-05] MEDS: Gabapentin 300 MG CAPSULE PO SCH ×2 (08:31→20:56)
--- NOTE | 2019-03-05 13:01 | Internal Med Progress Note ---
Hospitalist Progress Note - Encounter Date of Encounter: 03/05/19 Time of Encounter: 12:59 - Subjective Interval History: Patient seen and examined Thyroid [id number]. Patient stated that he feels improved than yesterday however still far from baseline. Patient otherwise has been tolerating oral intake, complained of lower extremity crampiness bilateral proximal occurred while he was in the hospital that is progressive. Patient unfortunately due to his respiratory failure has been unable to ambulate and feels weaker. Patient otherwise denies fever, chills, nausea, vomiting, chest pain, bone pain, diarrhea. - Exam Vitals: Temp Pulse Resp BP Pulse Ox 97.4 F L 119 18 110/71 94 03/05/19 10:57 03/05/19 10:57 03/05/19 11:47 03/05/19 10:57 03/05/19 11:47 Exam: General Appearance: Appearing as age, well-nourished in acute distress. Head: Atraumatic normocephalic Eyes: Conjunctivae pale with no erythema. Anicteric. Mouth: moist mucus membranes with no ulcers. On high flow nasal cannula Neck: no thyromegally. Trachea midline. Heart: Tachycardic, no murmurs. Capillary refill 2 seconds Lungs: accessory muscle usage, lungs bilateral crackles more prominent basilar. Abdomen: Non-distended, hyperactive bowel sounds. non-tender to palpation, no hepatomegally. No guarding. Extremities: Tenderness on the anterior thigh BL with no pain in the lateral hip or groin or joints. 5/5 BL LE and UE. DVT Prophylaxis: SCDs .Patient anemiec with hemotpsys and on ASA. will continue to hold. - Summary of Assessment and Plan Summary of Assessment and Plan: 1.sepsis secondary to MRSA pneumonia: overall improved. Patient's sputum culture grew MRSA: Blood cultures no growth final report. Continue vancomycin. Sensitivite to linezolid. Will await pulmonary recommendations. CXR pending. Hemoptysis likely multifactorial secondary to pneumonia and on anticoagulation. continued ASA. Will continue to hold plavix as there is no indication for it. Pulmonology on board. Appreciate Recommendations. Cardiology on board. Appreciate Recommendations. Acute hypoxic respiratory failure: multifactorial, Slight improvement currently on HFNC. Echocardiogram showed EF 60-60% with no pulmonary hypertension or wall motion abnormalities. ABG showed worsening hypoxia. improved with HFNC Repeat CXR pending. COPD with acute exacerbation scheduled bronchodilators and antibiotics. last dose today then D/c. Abnormal CT scan, chest Will need a repeat CT scan in 6-8 weeks to ensure radiographic resolution. ACute chest pain: Likely gi related. Resolved. Appreciate cardiology recommendations. PPI ordered. HTN (hypertension) controlled. on isosorbide, losartan, metoprolol succinate, and HTCZ. Cont to monitor. Cont current tx. PRN for >185/110 BP. Acute normocytic anemia: Multifactorial concern for Plavix faces hemoptysis. No other evidence of bleeding. Anemia panel ordered. B12/ folate borderline low, and iron deficiency. Orderred supplementation with nutrition consult. We will continue to follow. Hypokalemia: Resolved Elevated LFTs: ALT:AST ratio the same. Likely secondary from sepsis we will continue to follow if patient continues to rise we will order ultrasound liver, hepatitis panel. Vitamin B deficiency: Started B12 replacement. Generalized weakness: PT OT consult Urinary tract infection resolved. Lower extremity BL crampiness: flexiril orderred Discussed side effects. DVT prophylaxis: Heparin dispo: Inpatient likely >2 days stay. - Time Spent with Patient Total time spent is greater than 50% in coordination of care (as documented) at patient's floor/unit and/or counseling patient: Greater than 35 minutes Plan of Care Discussed with: patient Internal Medicine: Result - Labs CBC & Chem 7: 03/03/19 04:29 03/03/19 04:29 - ABG Interpretation ABG results: ABG ABG pH 7.49 pH Units (7.32-7.45) H 03/04/19 08:00 ABG pCO2 35 mmHg (35-45) 03/04/19 08:00 ABG pO2 76 mmHg (85-104) L 03/04/19 08:00 ABG O2 Saturation 96 % (95-98) 03/04/19 08:00 PT/INR, D-dimer PT 12.3 Seconds (9.4-12.1) H 02/28/19 15:15 - VTE Reasons for not Prescribing Prophylaxis: Not indicated-Anticoagulated or INR therapeutic Consult Discharge Plan - Plan Referrals: [facility] [Outside]
--- NOTE | 2019-03-05 14:00 | Pulmonology Progress Note ---
<Jerry Yoder - Last Filed: 03/05/19 17:28> Date of Encounter: 03/05/19 Time of Encounter: 14:00 Assessment and Plan (1) Hemoptysis Current Visit: Yes Status: Acute Hemoptysis - Improving - Scant hemoptysis with cough - Likely secondary to PNA/Plavix use/Acute lung injury Plan: - Continue plavix, will discontinue if hemoptysis worsens. - Pt instructed to collect any hemoptysis in bedside cup - No acute need for bronchoscopy - Will continue to follow (2) Pneumonia Current Visit: Yes Status: Acute CAP - Severe community-acquired pneumonia - MRSA Plan: - Continue IV vanc - 14 day coarse through 03/13/19 Qualifiers: Pneumonia type: due to methicillin-resistant Staphylococcus aureus (MRSA) Laterality: bilateral Lung location: upper lobe of lung Qualified Code(s): J15.212 - Pneumonia due to Methicillin resistant Staphylococcus aureus (3) COPD with acute exacerbation Current Visit: Yes Status: Acute Hx of COPD - Acute exacerbation - Requiring supplemental O2 - No O2 use at home Plan: - Continue high-flow O2 - O2 goal of >88% - Duonebs q4 - Simbicort BID (4) Abnormal CT scan, chest Current Visit: Yes Status: Acute CT chest - Left-sided infiltrates on emphysematous changes. - Secondary to COPD and MRSA PNA (5) Coronary artery disease Current Visit: Yes Status: Acute CAD - On plavix - OK to continue per DC, OK to DC is Hemoptysis worsens. Qualifiers: Coronary Disease-Associated Artery/Lesion type: unspecified vessel or lesion type [place] vs. transplanted heart: [place] heart Associated angina: without angina Qualified Code(s): I25.10 - Atherosclerotic heart disease of [place] coronary artery without angina pectoris Subjective Principal diagnosis: Hemoptysis Interval history: Pt seen and examined. Afebrile. No overnight events. Patient reports very little hemoptysis since yesterday, he did collect some overnight but it was thrown away by mistake. He was instructed to attempt to collect hemoptysis overnight again. Oxygen requirement has not improved, FiO2 60% with 15 L via high flow nasal cannula. Patient reports having shortness of breath when bending over forward or exerting himself. Objective PUL Vital signs: Last Vital Signs Temp 97.4 F L 03/05/19 10:57 Pulse 119 03/05/19 10:57 Resp 18 03/05/19 11:47 BP 110/71 03/05/19 10:57 Pulse Ox 94 03/05/19 11:47 Gen: Vitals noted. No acute distress. On High flow O2, 50L, 60% FiO2 Eyes: anicteric sclerae, moist conjunctivae. HENT: Atraumatic, normocephalic; oropharynx clear with moist mucous membranes and no mucosal ulcerations Neck: Trachea midline; supple, no thyromegaly or lymphadenopathy Cardiac: RRR, no murmurs, rubs or gallops, S1/S2 Pulmonary: Bibasilar crackles. No wheezing or ronchi Abdomen: soft, nontender, no rigidity or guarding. No masses or hepatosplenomegaly MSK: ROM intact, no joint swelling noted Extremities: no BLE edema, nontender calf, no cyanosis or clubbing Skin: Normal temperature, turgor and texture; no rash, ulcers or subcutaneous nodules Neuro: moves all extremities, no focal deficits. Psych: Appropriate mood and behavior. A&Ox3 Results - Laboratory Findings CBC and BMP: 03/03/19 04:29 03/03/19 04:29 ABG ABG pH 7.49 pH Units (7.32-7.45) H 03/04/19 08:00 ABG pCO2 35 mmHg (35-45) 03/04/19 08:00 ABG pO2 76 mmHg (85-104) L 03/04/19 08:00 ABG O2 Saturation 96 % (95-98) 03/04/19 08:00 PT/INR, D-dimer PT 12.3 Seconds (9.4-12.1) H 02/28/19 15:15 Abnormal lab findings: Abnormal lab results WBC 12.0 K/mcL (4.3-11.1) H 02/27/19 06:24 RBC 3.49 M/mcL (4.19-5.50) L 03/03/19 04:29 Hgb 10.3 g/dL (12.9-16.9) L 03/03/19 04:29 Hct 31.5 % (37.5-50.1) L 03/03/19 04:29 Neutrophils # 11.2 K/mcL (1.6-8.9) H 02/27/19 06:24 Lymphocytes # 0.3 K/mcL (0.6-4.6) L 03/01/19 05:01 Percent Retic 1.3 % (1.6-2.8) L 03/04/19 04:44 PT 12.3 Seconds (9.4-12.1) H 02/28/19 15:15 ABG pH 7.49 pH Units (7.32-7.45) H 03/04/19 08:00 ABG pO2 76 mmHg (85-104) L 03/04/19 08:00 ABG HCO3 29 mEq/L (21-27) H 03/04/19 04:15 ABG Total CO2 28 mEq/L (20-26) H 03/04/19 08:00 ABG O2 Saturation 86 % (95-98) L 03/04/19 04:15 ABG Base Excess 4 mEq/L (-2 to 3) H 03/04/19 08:00 Sodium 135 mEq/L (136-145) L 02/28/19 05:23 Potassium 2.9 mEq/L (3.5-5.1) L 03/02/19 07:10 Chloride 108 mEq/L (98-107) H 03/02/19 07:10 Carbon Dioxide 21 mEq/L (23-29) L 03/01/19 05:01 Glucose 122 mg/dL (70-105) H 03/03/19 04:29 Calculated Osmolality 275 (280-300) L 02/26/19 21:27 Calcium 8.3 mg/dL (8.6-10.3) L 03/02/19 07:10 Iron 32 mcg/dL (65-175) L 03/04/19 04:44 % Saturation 16 % (20-55) L 03/04/19 04:44 Transferrin 144 mg/dL (203-362) L 03/04/19 04:44 AST 85 Units/L (13-39) H 03/03/19 04:29 ALT 87 Units/L (7-52) H 03/03/19 04:29 Serum Total Protein 5.3 g/dL (6.4-8.9) L 03/03/19 04:29 Albumin 2.8 g/dL (3.5-5.7) L 03/03/19 04:29 Vitamin B12 166 pg/mL (250-1100) L 03/04/19 04:44 Ur Specific Almond 1.007 (1.010-1.025) L 03/01/19 01:14 Nasal Screen MRSA (PCR) DETECTED (Not Detect) A 02/28/19 14:42 Vancomycin Trough 12 mcg/mL (5-10) H 03/04/19 14:49 Urine Opiates Screen Positive ng/mL (Ufmiqo=550) H 03/01/19 01:14 - Microbiology Findings Microbiology Findings: Microbiology, Last 48 Hours 02/26/19 21:27 Blood Culture - Final Peripheral Venipuncture No growth. Final report. 02/26/19 21:27 Blood Culture - Final Peripheral Venipuncture No growth. Final report. - Clinical Findings Intake & Output: Intake & Output 03/04/19 03/05/19 03/05/19 23:59 07:59 15:59 Intake Total 890 / 1260 250 / 370 120 / 370 Output Total 1175 / 3300 625 / 925 300 / 925 Balance -285 / -2040 -375 / -555 -180 / -555 Weight 70.6 kg - VTE Reasons for not Prescribing Prophylaxis: Not indicated-Anticoagulated or INR therapeutic Consult Discharge Plan - Plan Referrals: [facility] [Outside] <Jadyn Gaviria - Last Filed: 03/05/19 21:21> Date of Encounter: 03/05/19 Objective PUL Vital signs: Last Vital Signs Temp 97.5 F L 03/05/19 18:55 Pulse 80 03/05/19 18:55 Resp 19 03/05/19 19:37 BP 117/70 03/05/19 18:55 Pulse Ox 90 03/05/19 19:37 Results - Laboratory Findings CBC and BMP: 03/03/19 04:29 03/03/19 04:29 ABG ABG pH 7.49 pH Units (7.32-7.45) H 03/04/19 08:00 ABG pCO2 35 mmHg (35-45) 03/04/19 08:00 ABG pO2 76 mmHg (85-104) L 03/04/19 08:00 ABG O2 Saturation 96 % (95-98) 03/04/19 08:00 PT/INR, D-dimer PT 12.3 Seconds (9.4-12.1) H 02/28/19 15:15 Abnormal lab findings: Abnormal lab results WBC 12.0 K/mcL (4.3-11.1) H 02/27/19 06:24 RBC 3.49 M/mcL (4.19-5.50) L 03/03/19 04:29 Hgb 10.3 g/dL (12.9-16.9) L 03/03/19 04:29 Hct 31.5 % (37.5-50.1) L 03/03/19 04:29 Neutrophils # 11.2 K/mcL (1.6-8.9) H 02/27/19 06:24 Lymphocytes # 0.3 K/mcL (0.6-4.6) L 03/01/19 05:01 Percent Retic 1.3 % (1.6-2.8) L 03/04/19 04:44 PT 12.3 Seconds (9.4-12.1) H 02/28/19 15:15 ABG pH 7.49 pH Units (7.32-7.45) H 03/04/19 08:00 ABG pO2 76 mmHg (85-104) L 03/04/19 08:00 ABG HCO3 29 mEq/L (21-27) H 03/04/19 04:15 ABG Total CO2 28 mEq/L (20-26) H 03/04/19 08:00 ABG O2 Saturation 86 % (95-98) L 03/04/19 04:15 ABG Base Excess 4 mEq/L (-2 to 3) H 03/04/19 08:00 Sodium 135 mEq/L (136-145) L 02/28/19 05:23 Potassium 2.9 mEq/L (3.5-5.1) L 03/02/19 07:10 Chloride 108 mEq/L (98-107) H 03/02/19 07:10 Carbon Dioxide 21 mEq/L (23-29) L 03/01/19 05:01 Glucose 122 mg/dL (70-105) H 03/03/19 04:29 Calculated Osmolality 275 (280-300) L 02/26/19 21:27 Calcium 8.3 mg/dL (8.6-10.3) L 03/02/19 07:10 Iron 32 mcg/dL (65-175) L 03/04/19 04:44 % Saturation 16 % (20-55) L 03/04/19 04:44 Transferrin 144 mg/dL (203-362) L 03/04/19 04:44 AST 85 Units/L (13-39) H 03/03/19 04:29 ALT 87 Units/L (7-52) H 03/03/19 04:29 Serum Total Protein 5.3 g/dL (6.4-8.9) L 03/03/19 04:29 Albumin 2.8 g/dL (3.5-5.7) L 03/03/19 04:29 Vitamin B12 166 pg/mL (250-1100) L 03/04/19 04:44 Ur Specific [place] 1.007 (1.010-1.025) L 03/01/19 01:14 Nasal Screen MRSA (PCR) DETECTED (Not Detect) A 02/28/19 14:42 Vancomycin Trough 12 mcg/mL (5-10) H 03/04/19 14:49 Urine Opiates Screen Positive ng/mL (Djnlay=409) H 03/01/19 01:14 - Microbiology Findings Microbiology Findings: Microbiology, Last 48 Hours 02/26/19 21:27 Blood Culture - Final Peripheral Venipuncture No growth. Final report. 02/26/19 21:27 Blood Culture - Final Peripheral Venipuncture No growth. Final report. - Clinical Findings Intake & Output: Intake & Output 03/05/19 03/05/19 03/05/19 07:59 15:59 23:59 Intake Total 250 / 860 120 / 860 490 / 860 Output Total 625 / 1425 300 / 1425 500 / 1425 Balance -375 / -565 -180 / -565 -10 / -565 Weight 70.6 kg - Attending Attestation I saw and evaluated this patient and my medical decision-making was reviewed with the Resident Physician. I agree with the documented findings, disposition and treatment plan as described except to the extent set forth below. We independently had aabo-[id number]-tduk contact with the patient Patient with advanced COPD with them MRSA pneumonia is not surprising that patient will have a prolonged hospital course. To keep the bronchodilator steroids and antibiotics.
[2019-03-05] MEDS ORDERED: 0.9 % Sodium Chloride 250 ML IVC ONE (15:49)
[2019-03-05] MEDS: Temazepam 15 MG CAPSULE PO SCH (20:54)
[2019-03-05] MEDS: OLANZapine 5 MG TAB.RAPDIS PO SCH (20:55)
[2019-03-05] MEDS: Melatonin 3 MG TABLET PO SCH (20:55)
[2019-03-06 04:48] LABS: Hematocrit 35.5 % (37.5-50.1); Hemoglobin 11.5 g/dL (12.9-16.9); Mean Corpuscular HGB Conc 32.4 g/dL (31.6-35.5); Mean Corpuscular Volume 89.4 fL (83.0-100.0); Mean Platelet Volume 9.8 fL (9.4-12.4); Platelet Count 345 K/mcL (140-400); Red Blood Count 3.97 M/mcL (4.19-5.50); Red Cell Distribution Width 14.5 % (11.5-14.5)
[2019-03-06 04:49] LABS: White Blood Count 10.3 K/mcL (4.3-11.1)
[2019-03-06] MEDS: *HR* Heparin 5,000 UNIT/ML VIAL SQ SCH ×3 (04:49→20:59)
[2019-03-06 05:07] LABS: Alanine Aminotransferase 80 Units/L (7-52); Albumin 2.8 g/dL (3.5-5.7); Albumin/Globulin Ratio 0.9 (1.1-2.2); Alkaline Phosphatase 110 Units/L (34-104); Aspartate Amino Transferase 34 Units/L (13-39); BUN/Creatinine Ratio 21 (6-26); Bilirubin,Total 0.5 mg/dL (0.3-1.0); Blood Urea Nitrogen 19 mg/dL (8-23); Carbon Dioxide 31 mEq/L (23-29); Chloride 100 mEq/L (98-107); Glucose 105 mg/dL (70-105); Magnesium 2.1 mg/dL (1.6-2.6); Osmolality,Calculated 287 (280-300); Phosphorous 4.4 mg/dL (2.7-4.5); Potassium 3.8 mEq/L (3.5-5.1); Sodium 137 mEq/L (136-145); Total Protein 5.8 g/dL (6.4-8.9); eGFR For African Americans > 60 (> 60); eGFR For Non-African Americans > 60 (> 60)
[2019-03-06] MEDS: hydroCHLOROthiazide 25 MG TABLET PO SCH (10:15)
[2019-03-06] MEDS: Metoprolol XL (24 HR) Succ 25 MG TAB.ER.24H PO SCH (10:30)
[2019-03-06] MEDS: Cholecalciferol (D-3) 1,000 UNIT (25MCG) TABLET PO SCH (10:30)
[2019-03-06] MEDS: rOPINIRole 0.25 MG TABLET PO SCH ×2 (10:30→21:03)
[2019-03-06] MEDS: Gabapentin 300 MG CAPSULE PO SCH ×2 (10:31→21:03)
[2019-03-06] MEDS: Isosorbide MONOnitrate (24 HR) 30 MG TAB.ER.24H PO SCH (10:31)
[2019-03-06] MEDS: Folic Acid 1 MG TABLET PO SCH (10:31)
[2019-03-06] MEDS: Aspirin 81 MG TAB.CHEW PO SCH (10:31)
[2019-03-06] MEDS: Famotidine 20 MG TABLET PO SCH (10:31)
[2019-03-06] MEDS: Budesonide/Formoterol 160/4.5 1 PUFF INH IH SCH ×2 (10:44→19:39)
[2019-03-06] MEDS: Ipratropium/Albuterol Neb 3 ML IH SCH ×4 (10:44→19:39)
--- NOTE | 2019-03-06 11:56 | Pulmonology Progress Note ---
<Jerry Yoder - Last Filed: 03/06/19 18:00> Date of Encounter: 03/06/19 Time of Encounter: 11:56 Assessment and Plan (1) Hemoptysis Current Visit: Yes Status: Acute Hemoptysis - Improving - No new episodes - Likely secondary to PNA/Plavix use/Acute lung injury Plan: - Continue plavix, will discontinue if hemoptysis worsens. - Pt instructed to collect any hemoptysis in bedside cup - No acute need for bronchoscopy - Will continue to follow (2) Pneumonia Current Visit: Yes Status: Acute CAP - Severe community-acquired pneumonia - MRSA - CXR shows improvement Plan: - Continue IV vanc - 14 day coarse through 03/13/19 Qualifiers: Pneumonia type: due to methicillin-resistant Staphylococcus aureus (MRSA) Laterality: bilateral Lung location: upper lobe of lung Qualified Code(s): J15.212 - Pneumonia due to Methicillin resistant Staphylococcus aureus (3) COPD with acute exacerbation Current Visit: Yes Status: Acute Hx of COPD - Acute exacerbation - Requiring supplemental O2 - No O2 use at home Plan: - Continue high-flow O2 - O2 goal of >88% - Duonebs q4 - Simbicort BID (4) Abnormal CT scan, chest Current Visit: Yes Status: Acute CT chest - Left-sided infiltrates on emphysematous changes. - Secondary to COPD and MRSA PNA (5) Coronary artery disease Current Visit: Yes Status: Acute CAD - On plavix - OK to continue per DC, OK to DC is Hemoptysis worsens. Qualifiers: Coronary Disease-Associated Artery/Lesion type: unspecified vessel or lesion type [place] vs. transplanted heart: [place] heart Associated angina: without angina Qualified Code(s): I25.10 - Atherosclerotic heart disease of [place] coronary artery without angina pectoris Subjective Principal diagnosis: Hemoptysis Interval history: Pt seen and examined. Afebrile. No overnight events. Patient reports no episodes of hemoptysis overnight. Feeling better today. Denies shortness of br eath. Patient able to sit up in chair as much as possible and use incentive spirometer often. Objective PUL Vital signs: Last Vital Signs Temp 98.4 F 03/06/19 10:23 Pulse 91 03/06/19 10:23 Resp 20 03/06/19 10:44 BP 152/88 03/06/19 10:23 Pulse Ox 94 03/06/19 10:44 Gen: Vitals noted. No acute distress. On High flow O2, 50L, 60% FiO2 Eyes: anicteric sclerae, moist conjunctivae. HENT: Atraumatic, normocephalic; oropharynx clear with moist mucous membranes and no mucosal ulcerations Neck: Trachea midline; supple, no thyromegaly or lymphadenopathy Cardiac: RRR, no murmurs, rubs or gallops, S1/S2 Pulmonary: Clear to auscultation BL. No wheezing or ronchi Abdomen: soft, nontender, no rigidity or guarding. No masses or hepatos plenomegaly MSK: ROM intact, no joint swelling noted Extremities: no BLE edema, nontender calf, no cyanosis or clubbing Skin: Normal temperature, turgor and texture; no rash, ulcers or subcutaneous no dules Neuro: moves all extremities, no focal deficits. Psych: Appropriate mood and behavior. A&Ox3 Results - Laboratory Findings CBC and BMP: 03/06/19 04:04 03/06/19 04:04 ABG ABG pH 7.49 pH Units (7.32-7.45) H 03/04/19 08:00 ABG pCO2 35 mmHg (35-45) 03/04/19 08:00 ABG pO2 76 mmHg (85-104) L 03/04/19 08:00 ABG O2 Saturation 96 % (95-98) 03/04/19 08:00 PT/INR, D-dimer PT 12.3 Seconds (9.4-12.1) H 02/28/19 15:15 Abnormal lab findings: Abnormal lab results WBC 12.0 K/mcL (4.3-11.1) H 02/27/19 06:24 RBC 3.97 M/mcL (4.19-5.50) L 03/06/19 04:04 Hgb 11.5 g/dL (12.9-16.9) L 03/06/19 04:04 Hct 35.5 % (37.5-50.1) L 03/06/19 04:04 Neutrophils # 11.2 K/mcL (1.6-8.9) H 02/27/19 06:24 Lymphocytes # 0.3 K/mcL (0.6-4.6) L 03/01/19 05:01 Percent Retic 1.3 % (1.6-2.8) L 03/04/19 04:44 PT 12.3 Seconds (9.4-12.1) H 02/28/19 15:15 ABG pH 7.49 pH Units (7.32-7.45) H 03/04/19 08:00 ABG pO2 76 mmHg (85-104) L 03/04/19 08:00 ABG HCO3 29 mEq/L (21-27) H 03/04/19 04:15 ABG Total CO2 28 mEq/L (20-26) H 03/04/19 08:00 ABG O2 Saturation 86 % (95-98) L 03/04/19 04:15 ABG Base Excess 4 mEq/L (-2 to 3) H 03/04/19 08:00 Sodium 135 mEq/L (136-145) L 02/28/19 05:23 Potassium 2.9 mEq/L (3.5-5.1) L 03/02/19 07:10 Chloride 108 mEq/L (98-107) H 03/02/19 07:10 Carbon Dioxide 31 mEq/L (23-29) H 03/06/19 04:04 Glucose 122 mg/dL (70-105) H 03/03/19 04:29 Calculated Osmolality 275 (280-300) L 02/26/19 21:27 Calcium 8.3 mg/dL (8.6-10.3) L 03/02/19 07:10 Iron 32 mcg/dL (65-175) L 03/04/19 04:44 % Saturation 16 % (20-55) L 03/04/19 04:44 Transferrin 144 mg/dL (203-362) L 03/04/19 04:44 AST 85 Units/L (13-39) H 03/03/19 04:29 ALT 80 Units/L (7-52) H 03/06/19 04:04 Alkaline Phosphatase 110 Units/L (34-104) H 03/06/19 04:04 Serum Total Protein 5.8 g/dL (6.4-8.9) L 03/06/19 04:04 Albumin 2.8 g/dL (3.5-5.7) L 03/06/19 04:04 Albumin/Globulin Ratio 0.9 (1.1-2.2) L 03/06/19 04:04 Vitamin B12 166 pg/mL (250-1100) L 03/04/19 04:44 Ur Specific [place] 1.007 (1.010-1.025) L 03/01/19 01:14 Nasal Screen MRSA (PCR) DETECTED (Not Detect) A 02/28/19 14:42 Vancomycin Trough 12 mcg/mL (5-10) H 03/04/19 14:49 Urine Opiates Screen Positive ng/mL (Irrgzl=823) H 03/01/19 01:14 - Clinical Findings Intake & Output: Intake & Output 03/05/19 03/06/19 03/06/19 23:59 07:59 15:59 Intake Total 970 / 1340 450 / 450 Output Total 800 / 1725 1175 / 1475 300 / 1475 Balance 170 / -385 -725 / -1025 -300 / -1025 Weight 70.9 kg - VTE Reasons for not Prescribing Prophylaxis: Not indicated-Anticoagulated or INR therapeutic Consult Discharge Plan - Plan Referrals: [facility] [Outside] <Jadyn Gaviria - Last Filed: 03/06/19 20:32> Date of Encounter: 03/06/19 Objective PUL Vital signs: Last Vital Signs Temp 97.9 F 03/06/19 15:33 Pulse 91 03/06/19 15:33 Resp 14 03/06/19 19:40 BP 100/66 03/06/19 15:33 Pulse Ox 94 03/06/19 19:40 Results - Laboratory Findings CBC and BMP: 03/06/19 04:04 03/06/19 04:04 ABG ABG pH 7.49 pH Units (7.32-7.45) H 03/04/19 08:00 ABG pCO2 35 mmHg (35-45) 03/04/19 08:00 ABG pO2 76 mmHg (85-104) L 03/04/19 08:00 ABG O2 Saturation 96 % (95-98) 03/04/19 08:00 PT/INR, D-dimer PT 12.3 Seconds (9.4-12.1) H 02/28/19 15:15 Abnormal lab findings: Abnormal lab results WBC 12.0 K/mcL (4.3-11.1) H 02/27/19 06:24 RBC 3.97 M/mcL (4.19-5.50) L 03/06/19 04:04 Hgb 11.5 g/dL (12.9-16.9) L 03/06/19 04:04 Hct 35.5 % (37.5-50.1) L 03/06/19 04:04 Neutrophils # 11.2 K/mcL (1.6-8.9) H 02/27/19 06:24 Lymphocytes # 0.3 K/mcL (0.6-4.6) L 03/01/19 05:01 Percent Retic 1.3 % (1.6-2.8) L 03/04/19 04:44 PT 12.3 Seconds (9.4-12.1) H 02/28/19 15:15 ABG pH 7.49 pH Units (7.32-7.45) H 03/04/19 08:00 ABG pO2 76 mmHg (85-104) L 03/04/19 08:00 ABG HCO3 29 mEq/L (21-27) H 03/04/19 04:15 ABG Total CO2 28 mEq/L (20-26) H 03/04/19 08:00 ABG O2 Saturation 86 % (95-98) L 03/04/19 04:15 ABG Base Excess 4 mEq/L (-2 to 3) H 03/04/19 08:00 Sodium 135 mEq/L (136-145) L 02/28/19 05:23 Potassium 2.9 mEq/L (3.5-5.1) L 03/02/19 07:10 Chloride 108 mEq/L (98-107) H 03/02/19 07:10 Carbon Dioxide 31 mEq/L (23-29) H 03/06/19 04:04 Glucose 122 mg/dL (70-105) H 03/03/19 04:29 Calculated Osmolality 275 (280-300) L 02/26/19 21:27 Calcium 8.3 mg/dL (8.6-10.3) L 03/02/19 07:10 Iron 32 mcg/dL (65-175) L 03/04/19 04:44 % Saturation 16 % (20-55) L 03/04/19 04:44 Transferrin 144 mg/dL (203-362) L 03/04/19 04:44 AST 85 Units/L (13-39) H 03/03/19 04:29 ALT 80 Units/L (7-52) H 03/06/19 04:04 Alkaline Phosphatase 110 Units/L (34-104) H 03/06/19 04:04 Serum Total Protein 5.8 g/dL (6.4-8.9) L 03/06/19 04:04 Albumin 2.8 g/dL (3.5-5.7) L 03/06/19 04:04 Albumin/Globulin Ratio 0.9 (1.1-2.2) L 03/06/19 04:04 Vitamin B12 166 pg/mL (250-1100) L 03/04/19 04:44 Ur Specific [place] 1.007 (1.010-1.025) L 03/01/19 01:14 Nasal Screen MRSA (PCR) DETECTED (Not Detect) A 02/28/19 14:42 Vancomycin Trough 14 mcg/mL (5-10) H 03/06/19 14:51 Urine Opiates Screen Positive ng/mL (Agwxls=071) H 03/01/19 01:14 - Clinical Findings Intake & Output: Intake & Output 03/06/19 03/06/19 03/06/19 07:59 15:59 23:59 Intake Total 450 / 810 120 / 810 240 / 810 Output Total 1175 / 1775 300 / 1775 300 / 1775 Balance -725 / -965 -180 / -965 -60 / -965 Weight 70.9 kg - Attending Attestation I saw and evaluated this patient and my medical decision-making was reviewed with the Resident Physician. I agree with the documented findings, disposition and treatment plan as described except to the extent set forth below. We independently had [id number] contact with the patient Patient seen and examined at bedside Labs, radiology, chart personally reviewed. Management was reviewed during multidisciplinary critical care rounds. COPD exacerbation with MRSA pneumonia to try to liberate oxygen as tolerated. To continue with broad-spectrum antibiotics patient was increased to use incentive spirometry. Prolonged the hospital course this of the severe struct ural lung disease complicated by MRSA pneumonia.
[2019-03-06] MEDS: Nicotine 21 MG PATCH.TD24 TD SCH (12:00)
--- NOTE | 2019-03-06 20:34 | Internal Med Progress Note ---
Hospitalist Progress Note - Encounter Date of Encounter: 03/06/19 Time of Encounter: 11:15 - Subjective Interval History: Mr Caro stated that he is quitting tobacco use cold turkey but agreeable to nicotine patches. Reports improvement in SOB GEN: Denies fever, chills or malaise HEENT: Denies headache blurriness, or dysphagia RESP: Reports improvement SOB or cough CV: Denies chest pain or palpitations GI: Denies Nausea, vomiting, diarrhea or constipation Reviewed current in hospital medications with modifications see orders Reviewed Routine labs - Exam Vitals: Temp Pulse Resp BP Pulse Ox 97.9 F 91 14 100/66 94 03/06/19 15:33 03/06/19 15:33 03/06/19 19:40 03/06/19 15:33 03/06/19 19:40 Exam: GEN: Slightly emaciated NAD, A&O x 3, Pleasant and conversant SKIN: Gate warm acyanotic not jaundice HEART: RRR, no murmurs LUNGS: Diminished bilaterally no wheeze , few scattered crackles, overall non labored ABDOMEN; Soft, non tender or distended, BS x 4 normactive EXT: No LE edema, Pedal pulses 1+, radial pulses 2+ PSYCH: Mood and affect is appropriate DVT Prophylaxis: SCDs . - Summary of Assessment and Plan Summary of Assessment and Plan: 1.sepsis secondary to MRSA pneumonia: On vancomycin, will likely transition to linezolid upon discharge to continue vancomycin since he is being discharged to ECF Hemoptysis resolved Acute hypoxic respiratory failure: Improvement, still requiring high flow oxygen will likely need BiPAP and oxygen therapy upon discharge to ECF COPD with acute exacerbation Continue DuoNeb. Abnormal CT scan, chest Will need a repeat CT scan in 6-8 weeks to ensure radiographic resolution. HTN (hypertension) Normotensive on isosorbide, losartan, metoprolol succinate, and HTCZ. Acute normocytic anemia: It is setting of hemoptysis, hemoglobin stable and ended up to 11.5 Hypokalemia: Resolved Elevated LFTs: AST has normalized however ALT trended down, repeat CMP in am Vitamin B deficiency: Started B12 replacement. Generalized weakness: PT OT consult, likely to ECF placement Urinary tract infection resolved. DVT prophylaxis: Heparin, anticipate discharge in the next 24 hours - Time Spent with Patient Total time spent is greater than 50% in coordination of care (as documented) at patient's floor/unit and/or counseling patient: Internal Medicine: Result - Labs CBC & Chem 7: 03/06/19 04:04 03/06/19 04:04 Labs: Short CBC 03/06/19 Range/Units 04:04 WBC 10.3 D (4.3-11.1) K/mcL Hgb 11.5 L (12.9-16.9) g/dL Hct 35.5 L (37.5-50.1) % Plt Count 345 D (140-400) K/mcL BMP 03/06/19 04:04 Sodium 137 Potassium 3.8 Chloride 100 Carbon Dioxide 31 H BUN 19 Creatinine 0.89 Glucose 105 Calcium 9.0 Liver Function 03/06/19 Range/Units 04:04 Total Bilirubin 0.5 (0.3-1.0) mg/dL AST 34 (13-39) Units/L ALT 80 H (7-52) Units/L Alkaline Phosphatase 110 H (34-104) Units/L Albumin 2.8 L (3.5-5.7) g/dL - ABG Interpretation ABG results: ABG ABG pH 7.49 pH Units (7.32-7.45) H 03/04/19 08:00 ABG pCO2 35 mmHg (35-45) 03/04/19 08:00 ABG pO2 76 mmHg (85-104) L 03/04/19 08:00 ABG O2 Saturation 96 % (95-98) 03/04/19 08:00 PT/INR, D-dimer PT 12.3 Seconds (9.4-12.1) H 02/28/19 15:15 - VTE Reasons for not Prescribing Prophylaxis: Not indicated-Anticoagulated or INR therapeutic Consult Discharge Plan - Plan Referrals: [facility] [Outside]
[2019-03-06] MEDS: OLANZapine 5 MG TAB.RAPDIS PO SCH (21:00)
[2019-03-06] MEDS: Melatonin 3 MG TABLET PO SCH (21:02)
[2019-03-06] MEDS: Temazepam 15 MG CAPSULE PO SCH (21:03)
[2019-03-07] MEDS: hydroCHLOROthiazide 25 MG TABLET PO SCH (04:44)
[2019-03-07 05:10] LABS: Hematocrit 36.4 % (37.5-50.1); Hemoglobin 11.9 g/dL (12.9-16.9); Mean Corpuscular HGB Conc 32.7 g/dL (31.6-35.5); Mean Corpuscular Hemoglobin 28.6 pg (28.0-33.3); Mean Corpuscular Volume 87.5 fL (83.0-100.0); Mean Platelet Volume 9.5 fL (9.4-12.4); Platelet Count 358 K/mcL (140-400); Red Blood Count 4.16 M/mcL (4.19-5.50); Red Cell Distribution Width 14.5 % (11.5-14.5); White Blood Count 9.5 K/mcL (4.3-11.1)
[2019-03-07] MEDS: *HR* Heparin 5,000 UNIT/ML VIAL SQ SCH ×3 (05:15→20:54)
[2019-03-07 05:28] LABS: Alanine Aminotransferase 72 Units/L (7-52); Albumin 2.8 g/dL (3.5-5.7); Alkaline Phosphatase 118 Units/L (34-104); Aspartate Amino Transferase 34 Units/L (13-39); BUN/Creatinine Ratio 23 (6-26); Bilirubin,Total 0.6 mg/dL (0.3-1.0); Blood Urea Nitrogen 21 mg/dL (8-23); Calcium 8.8 mg/dL (8.6-10.3); Carbon Dioxide 27 mEq/L (23-29); Chloride 100 mEq/L (98-107); Globulin 2.9 g/dL (2.4-3.5); Glucose 100 mg/dL (70-105); Osmolality,Calculated 283 (280-300); Potassium 3.7 mEq/L (3.5-5.1); Sodium 135 mEq/L (136-145); Total Protein 5.7 g/dL (6.4-8.9); eGFR For African Americans > 60 (> 60); eGFR For Non-African Americans > 60 (> 60)
[2019-03-07 06:52] LABS: ABG Base Excess 7 mEq/L (-2 to 3); ABG HCO3 31 mEq/L (21-27); ABG Oxygen Saturation 88 % (95-98); ABG PCO2 42 mmHg (35-45); ABG PH 7.48 pH Units (7.32-7.45); ABG PO2 51 mmHg (85-104); ABG TCO2 32 mEq/L (20-26)
[2019-03-07] MEDS: Budesonide/Formoterol 160/4.5 1 PUFF INH IH SCH ×2 (07:52→20:05)
[2019-03-07] MEDS: Ipratropium/Albuterol Neb 3 ML IH SCH ×4 (07:52→20:05)
--- NOTE | 2019-03-07 08:09 | Pulmonology Progress Note ---
<Jerry Yoder - Last Filed: 03/07/19 15:58> Date of Encounter: 03/07/19 Time of Encounter: 08:09 Assessment and Plan (1) Acute on chronic respiratory failure Current Visit: Yes Status: Acute Acute resp failture - SecondARY to PNA and COPD - High supplemental O2 requirement - Remains on High-flow nasal cannula Plan: - Attempt to wean O2 - Pt encouraged to sit in chair, use incentive spirometer - Continue to monitor - Contine PNA and COPD treatments Qualifiers: Respiratory failure complication: hypoxia Qualified Code(s): J96.21 - Acute and chronic respiratory failure with hypoxia (2) Hemoptysis Current Visit: Yes Status: Resolved Hemoptysis - Resolved - Likely secondary to PNA/Plavix use/Acute lung injury Plan: - Continue plavix, will discontinue if hemoptysis worsens. - Pt instructed to collect any hemoptysis in bedside cup - No acute need for bronchoscopy - Will continue to follow (3) Pneumonia Current Visit: Yes Status: Acute CAP - Severe community-acquired pneumonia - MRSA - CXR shows improvement Plan: - Continue IV vanc - 14 day coarse through 03/13/19 Qualifiers: Pneumonia type: due to methicillin-resistant Staphylococcus aureus (MRSA) Laterality: bilateral Lung location: upper lobe of lung Qualified Code(s): J15.212 - Pneumonia due to Methicillin resistant Staphylococcus aureus (4) COPD with acute exacerbation Current Visit: Yes Status: Acute Hx of COPD - Acute exacerbation - Requiring supplemental O2 - No O2 use at home Plan: - Continue high-flow O2 - O2 goal of >88% - Duonebs q4 - Simbicort BID (5) Abnormal CT scan, chest Current Visit: Yes Status: Acute CT chest - Left-sided infiltrates on emphysematous changes. - Secondary to COPD and MRSA PNA (6) Coronary artery disease Current Visit: Yes Status: Acute CAD - On plavix - OK to continue per DC, OK to DC is Hemoptysis worsens. Qualifiers: Coronary Disease-Associated Artery/Lesion type: unspecified vessel or lesion type [place] vs. transplanted heart: [place] heart Associated angina: without angina Qualified Code(s): I25.10 - Atherosclerotic heart disease of [place] coronary artery without angina pectoris Subjective Principal diagnosis: Hemoptysis Interval history: Pt seen and examined. Afebrile. No overnight events. Patient lying in bed. Patient has increased fatigue this morning. Breathing comfortably on high flow nasal cannula. Patient reports shortness of breath with exertion. Reports cough productive of yellow sputum. Denies hemoptysis. Denies fever, chills, chest pain, abdominal pain, nausea, vomiting, diarrhea, constipation. Objective PUL Vital signs: Last Vital Signs Temp 98.1 F 03/07/19 04:57 Pulse 86 03/07/19 04:57 Resp 18 03/07/19 04:57 BP 146/78 03/07/19 04:57 Pulse Ox 93 03/07/19 05:10 Gen: Vitals noted. No acute distress. On High flow O2 Eyes: anicteric sclerae, moist conjunctivae. HENT: Atraumatic, normocephalic. oropharynx clear with moist mucous membranes and no mucosal ulcerations Neck: Trachea midline, no thyromegaly or lymphadenopathy Cardiac: RRR, no murmurs, rubs or gallops, S1/S2 Pulmonary: Decreased breath sounds BL. No wheezing or ronchi Abdomen: soft, nontender, no rigidity or guarding. No masses or hepatosplenome chacorta MSK: ROM intact, no joint swelling noted Extremities: no BLE edema, nontender calf, no cyanosis or clubbing Skin: Normal temperature, turgor and texture; no rash, ulcers or subcutaneous nodules Neuro: moves all extremities, no focal deficits. Psych: Appropriate mood and behavior. A&Ox3 Results - Laboratory Findings CBC and BMP: 03/07/19 04:59 03/07/19 04:59 ABG ABG pH 7.48 pH Units (7.32-7.45) H 03/07/19 06:36 ABG pCO2 42 mmHg (35-45) 03/07/19 06:36 ABG pO2 51 mmHg (85-104) L 03/07/19 06:36 ABG O2 Saturation 88 % (95-98) L 03/07/19 06:36 PT/INR, D-dimer PT 12.3 Seconds (9.4-12.1) H 02/28/19 15:15 Abnormal lab findings: Abnormal lab results WBC 12.0 K/mcL (4.3-11.1) H 02/27/19 06:24 RBC 4.16 M/mcL (4.19-5.50) L 03/07/19 04:59 Hgb 11.9 g/dL (12.9-16.9) L 03/07/19 04:59 Hct 36.4 % (37.5-50.1) L 03/07/19 04:59 Neutrophils # 11.2 K/mcL (1.6-8.9) H 02/27/19 06:24 Lymphocytes # 0.3 K/mcL (0.6-4.6) L 03/01/19 05:01 Percent Retic 1.3 % (1.6-2.8) L 03/04/19 04:44 PT 12.3 Seconds (9.4-12.1) H 02/28/19 15:15 ABG pH 7.48 pH Units (7.32-7.45) H 03/07/19 06:36 ABG pO2 51 mmHg (85-104) L 03/07/19 06:36 ABG HCO3 31 mEq/L (21-27) H 03/07/19 06:36 ABG Total CO2 32 mEq/L (20-26) H 03/07/19 06:36 ABG O2 Saturation 88 % (95-98) L 03/07/19 06:36 ABG Base Excess 7 mEq/L (-2 to 3) H 03/07/19 06:36 Sodium 135 mEq/L (136-145) L 03/07/19 04:59 Potassium 2.9 mEq/L (3.5-5.1) L 03/02/19 07:10 Chloride 108 mEq/L (98-107) H 03/02/19 07:10 Carbon Dioxide 31 mEq/L (23-29) H 03/06/19 04:04 Glucose 122 mg/dL (70-105) H 03/03/19 04:29 Calculated Osmolality 275 (280-300) L 02/26/19 21:27 Calcium 8.3 mg/dL (8.6-10.3) L 03/02/19 07:10 Iron 32 mcg/dL (65-175) L 03/04/19 04:44 % Saturation 16 % (20-55) L 03/04/19 04:44 Transferrin 144 mg/dL (203-362) L 03/04/19 04:44 AST 85 Units/L (13-39) H 03/03/19 04:29 ALT 72 Units/L (7-52) H 03/07/19 04:59 Alkaline Phosphatase 118 Units/L (34-104) H 03/07/19 04:59 Serum Total Protein 5.7 g/dL (6.4-8.9) L 03/07/19 04:59 Albumin 2.8 g/dL (3.5-5.7) L 03/07/19 04:59 Albumin/Globulin Ratio 1.0 (1.1-2.2) L 03/07/19 04:59 Vitamin B12 166 pg/mL (250-1100) L 03/04/19 04:44 Ur Specific [place] 1.007 (1.010-1.025) L 03/01/19 01:14 Nasal Screen MRSA (PCR) DETECTED (Not Detect) A 02/28/19 14:42 Vancomycin Trough 14 mcg/mL (5-10) H 03/06/19 14:51 Urine Opiates Screen Positive ng/mL (Uivnfy=210) H 03/01/19 01:14 - Clinical Findings Intake & Output: Intake & Output 03/06/19 03/07/19 03/07/19 23:59 07:59 15:59 Intake Total 240 / 810 500 / 500 Output Total 300 / 1775 Balance -60 / -965 500 / 500 - VTE Reasons for not Prescribing Prophylaxis: Not indicated-Anticoagulated or INR therapeutic Consult Discharge Plan - Plan Referrals: [facility] [Outside] - 03/14/19 1:15 pm <Jadyn Gaviria - Last Filed: 03/07/19 21:20> Date of Encounter: 03/07/19 Objective PUL Vital signs: Last Vital Signs Temp 99.5 F 03/07/19 20:01 Pulse 74 03/07/19 20:01 Resp 14 03/07/19 20:10 BP 110/65 03/07/19 20:01 Pulse Ox 100 03/07/19 20:10 Results - Laboratory Findings CBC and BMP: 03/07/19 04:59 03/07/19 04:59 ABG ABG pH 7.48 pH Units (7.32-7.45) H 03/07/19 06:36 ABG pCO2 42 mmHg (35-45) 03/07/19 06:36 ABG pO2 51 mmHg (85-104) L 03/07/19 06:36 ABG O2 Saturation 88 % (95-98) L 03/07/19 06:36 PT/INR, D-dimer PT 12.3 Seconds (9.4-12.1) H 02/28/19 15:15 Abnormal lab findings: Abnormal lab results WBC 12.0 K/mcL (4.3-11.1) H 02/27/19 06:24 RBC 4.16 M/mcL (4.19-5.50) L 03/07/19 04:59 Hgb 11.9 g/dL (12.9-16.9) L 03/07/19 04:59 Hct 36.4 % (37.5-50.1) L 03/07/19 04:59 Neutrophils # 11.2 K/mcL (1.6-8.9) H 02/27/19 06:24 Lymphocytes # 0.3 K/mcL (0.6-4.6) L 03/01/19 05:01 Percent Retic 1.3 % (1.6-2.8) L 03/04/19 04:44 PT 12.3 Seconds (9.4-12.1) H 02/28/19 15:15 ABG pH 7.48 pH Units (7.32-7.45) H 03/07/19 06:36 ABG pO2 51 mmHg (85-104) L 03/07/19 06:36 ABG HCO3 31 mEq/L (21-27) H 03/07/19 06:36 ABG Total CO2 32 mEq/L (20-26) H 03/07/19 06:36 ABG O2 Saturation 88 % (95-98) L 03/07/19 06:36 ABG Base Excess 7 mEq/L (-2 to 3) H 03/07/19 06:36 Sodium 135 mEq/L (136-145) L 03/07/19 04:59 Potassium 2.9 mEq/L (3.5-5.1) L 03/02/19 07:10 Chloride 108 mEq/L (98-107) H 03/02/19 07:10 Carbon Dioxide 31 mEq/L (23-29) H 03/06/19 04:04 Glucose 122 mg/dL (70-105) H 03/03/19 04:29 Calculated Osmolality 275 (280-300) L 02/26/19 21:27 Calcium 8.3 mg/dL (8.6-10.3) L 03/02/19 07:10 Iron 32 mcg/dL (65-175) L 03/04/19 04:44 % Saturation 16 % (20-55) L 03/04/19 04:44 Transferrin 144 mg/dL (203-362) L 03/04/19 04:44 AST 85 Units/L (13-39) H 03/03/19 04:29 ALT 72 Units/L (7-52) H 03/07/19 04:59 Alkaline Phosphatase 118 Units/L (34-104) H 03/07/19 04:59 Serum Total Protein 5.7 g/dL (6.4-8.9) L 03/07/19 04:59 Albumin 2.8 g/dL (3.5-5.7) L 03/07/19 04:59 Albumin/Globulin Ratio 1.0 (1.1-2.2) L 03/07/19 04:59 Vitamin B12 166 pg/mL (250-1100) L 03/04/19 04:44 Ur Specific [place] 1.007 (1.010-1.025) L 03/01/19 01:14 Nasal Screen MRSA (PCR) DETECTED (Not Detect) A 02/28/19 14:42 Vancomycin Trough 14 mcg/mL (5-10) H 03/06/19 14:51 Urine Opiates Screen Positive ng/mL (Jdraob=685) H 03/01/19 01:14 - Clinical Findings Intake & Output: Intake & Output 03/07/19 03/07/19 03/07/19 07:59 15:59 23:59 Intake Total 750 / 750 Output Total 680 / 680 Balance 750 / 70 -680 / 70 - Attending Attestation I saw and evaluated this patient and my medical decision-making was reviewed with the Resident Physician. I agree with the documented findings, disposition and treatment plan as described except to the extent set forth below. We independently had [id number] contact with the patient Patient seen and examined at bedside Labs, radiology, chart personally reviewed. Patient presented with MRSA pneumonia with advanced COPD exacerbation because of this to factors patient is having a prolonged hospital course will increase incentive spirometry every clearance therapy patient should be shifted to higher acuity nursing . Encouraged patient to sit up. Patient has acceptable oxy genation and ventilation now.
[2019-03-07] MEDS: Aspirin 81 MG TAB.CHEW PO SCH (09:36)
[2019-03-07] MEDS: Famotidine 20 MG TABLET PO SCH (09:36)
[2019-03-07] MEDS: Gabapentin 300 MG CAPSULE PO SCH ×2 (09:36→20:53)
[2019-03-07] MEDS: Isosorbide MONOnitrate (24 HR) 30 MG TAB.ER.24H PO SCH (09:36)
[2019-03-07] MEDS: rOPINIRole 0.25 MG TABLET PO SCH ×2 (09:37→20:53)
[2019-03-07] MEDS: Cholecalciferol (D-3) 1,000 UNIT (25MCG) TABLET PO SCH (09:37)
[2019-03-07] MEDS: Metoprolol XL (24 HR) Succ 25 MG TAB.ER.24H PO SCH (09:38)
[2019-03-07] MEDS: Folic Acid 1 MG TABLET PO SCH (09:39)
[2019-03-07] MEDS: Nicotine 21 MG PATCH.TD24 TD SCH (09:41)
--- NOTE | 2019-03-07 09:55 | Physician Discharge Referral ---
Home Health/Hosp Referral Info Transfer to: Home Health Provider in Charge Post Discharge: PCP - Diagnosis (1) MRSA pneumonia Priority: Primary Status: Acute (2) Sepsis Priority: Primary Status: Resolved (3) UTI (urinary tract infection) Priority: Primary Status: Acute (4) Acute respiratory failure with hypoxia Priority: Primary Status: Acute (5) COPD with exacerbation Priority: Secondary Status: Acute (6) Abnormal CT of the chest Priority: Secondary Status: Acute (7) Normocytic anemia Priority: Secondary Status: Acute (8) Vitamin B 12 deficiency Priority: Secondary Status: Acute (9) Hypokalemia Priority: Secondary Status: Acute (10) Elevated LFTs Priority: Secondary Status: Acute (11) Generalized weakness Priority: Secondary Status: Acute (12) HTN (hypertension) Priority: Secondary Status: Chronic - Respiratory Orders Other (high flow 45%) Smoking Cessation: Smoking cessation has been advised. For more information, call the [place] Tobacco Quit Line at 5-213-CWLJ-NOW. - Diet/Nutrition Diet/Nutrition Orders: Cardiac - Activity Activity Orders: Up ad qu[place] - Services Needed Following services are medically necessary services: Nursing, Home Health Aide, Physical Therapy, Occupational Therapy - Transfer Medications Home Medications: Aspirin 81 mg PO QAM 03/14/15 [History] Budesonide/Formoterol 160/4.5 [Symbicort 160/4.5] 1 puff IH BID PRN 03/14/15 [History] Calcium Carbonate/Vitamin D3 [Calcium 1,000 + D3 Caplet] 1 each PO BID 02/27/19 [History] Clopidogrel Bisulfate [Plavix] 75 mg PO DAILY 02/27/19 [History] Gabapentin [Neurontin] 600 mg PO TID 02/27/19 [History] Melatonin [Melatin] 6 mg PO HS 02/27/19 [History] Metoprolol Succinate [Toprol Xl] 12.5 mg PO DAILY 02/27/19 [History] OLANZapine [Zyprexa] 7.5 mg PO HS 02/27/19 [History] Omeprazole [PriLOSEC] 20 mg PO DAILY 02/27/19 [History] Ranitidine HCl [Zantac] 300 mg PO DAILY 02/27/19 [History] Simvastatin [Zocor] 40 mg PO HS 02/27/19 [History] rOPINIRole [Requip] 1 mg PO HS 02/27/19 [History] Allergies/Adverse Reactions: Allergy/AdvReac Type Severity Reaction Status Date / Time acetaminophen AdvReac Nausea Verified 02/27/19 15:04 [From Darvocet-N] propoxyphene AdvReac Nausea Verified 02/27/19 15:04 [From Darvocet-N] Certification: Further, I certify that my clinical findings support that this patient is homebound (i.e. absences from home require considerable and taxing effort and are for medical reasons or taoist services or infrequently or short duration when for other reasons) because: Homebound Reason: Leaving home requires considerable and taxing effort due to condition Attestation: My signature below is to certify that this patient is under my care and that I, or nurse practitioner, or a physician's licensed nursing assistant working with me, has a [id number] encounter with this patient.
[2019-03-07] MEDS: *HR* HYDROcodone/Acet 5/325 mg TABLET PO PRN (11:52)
--- NOTE | 2019-03-07 16:21 | Internal Med Progress Note ---
Hospitalist Progress Note - Encounter Date of Encounter: 03/07/19 Time of Encounter: 11:45 - Subjective Interval History: Mr Caro reports mild improvement in his Shortness of Breath, he continues to require high flow oxygen. Discussed case with the paster operator, will work on airway clearance/ management. Case also discussed with the respiratory t herapist to help with mechanical airway [place] GEN: Denies fever, chills or malaise HEENT: Denies headache blurriness, or dysphagia RESP: admits to SOB or cough CV: Denies chest pain or palpitations GI: Denies Nausea, vomiting, diarrhea or constipation Reviewed current in hospital medications with modifications see orders Reviewed Routine labs - Exam Vitals: Temp Pulse Resp BP Pulse Ox 98.2 F 93 18 96/65 95 03/07/19 15:59 03/07/19 15:59 03/07/19 15:59 03/07/19 15:59 03/07/19 15:59 Exam: GEN: Slightly emaciated NAD, A&O x 3, Pleasant and conversant SKIN: [place] warm acyanotic not jaundice HEART: RRR somewhat tachycardic, no murmurs LUNGS: Diminished bilaterally no wheeze , few scattered crackles, overall non labored ABDOMEN; Soft, non tender or distended, BS x 4 normactive EXT: No LE edema, Pedal pulses 1+, radial pulses 2+ PSYCH: Mood and affect is appropriate - Assessment and Plan (1) Acute respiratory failure with hypoxia Current Visit: Yes Status: Acute Assessment and Plan: Likely multifactorial underlying COPD recent MRSA pneumonia patient appears to be having difficult weaning down oxygen therapy, case discussed with paster operator and respiratory therapies will emphasize mechanical airway clearance (2) MRSA pneumonia Current Visit: Yes Status: Acute Assessment and Plan: Sputum culture was positive for MRSA is currently on vancomycin day 5, given his extensive COPD emphysema anticipate slow recovery (3) Sepsis Current Visit: Yes Status: Resolved Assessment and Plan: Resolved. Secondary to MRSA pneumonia (4) UTI (urinary tract infection) Current Visit: Yes Status: Acute Assessment and Plan: Resolved (5) COPD with exacerbation Current Visit: Yes Status: Acute Assessment and Plan: Continue DuoNeb (6) Abnormal CT of the chest Current Visit: Yes Status: Acute Assessment and Plan: Patient will need repeat CT scan in 6-8 weeks as an out Patient (7) Normocytic anemia Current Visit: Yes Status: Acute Assessment and Plan: In the setting of hemoptysis hemoglobin is stable continue to trend up 11.5 yesterday 11.9 today (8) Vitamin B 12 deficiency Current Visit: Yes Status: Acute Assessment and Plan: Continue supplementation (9) Hypokalemia Current Visit: Yes Status: Acute Assessment and Plan: Resolved potassium is 3.7 (10) Elevated LFTs Current Visit: Yes Status: Acute Assessment and Plan: ALT trending down -96-81, however AST has normalized (11) Generalized weakness Current Visit: Yes Status: Acute Assessment and Plan: Cardiovascular physical therapy and chemotherapy likely discharge to [facility] for continued rehabilitation (12) HTN (hypertension) Current Visit: Yes Status: Chronic Assessment and Plan: Blood pressure is low normal we will hold BP meds DVT Prophylaxis: Heparin subcutaneous - Time Spent with Patient Total time spent is greater than 50% in coordination of care (as documented) at patient's floor/unit and/or counseling patient: Internal Medicine: Result - Labs CBC & Chem 7: 03/07/19 04:59 03/07/19 04:59 Labs: Short CBC 03/07/19 Range/Units 04:59 WBC 9.5 (4.3-11.1) K/mcL Hgb 11.9 L (12.9-16.9) g/dL Hct 36.4 L (37.5-50.1) % Plt Count 358 (140-400) K/mcL BMP 03/07/19 04:59 Sodium 135 L Potassium 3.7 Chloride 100 Carbon Dioxide 27 BUN 21 Creatinine 0.91 Glucose 100 Calcium 8.8 Liver Function 03/07/19 Range/Units 04:59 Total Bilirubin 0.6 (0.3-1.0) mg/dL AST 34 (13-39) Units/L ALT 72 H (7-52) Units/L Alkaline Phosphatase 118 H (34-104) Units/L Albumin 2.8 L (3.5-5.7) g/dL - ABG Interpretation ABG results: ABG ABG pH 7.48 pH Units (7.32-7.45) H 03/07/19 06:36 ABG pCO2 42 mmHg (35-45) 03/07/19 06:36 ABG pO2 51 mmHg (85-104) L 03/07/19 06:36 ABG O2 Saturation 88 % (95-98) L 03/07/19 06:36 PT/INR, D-dimer PT 12.3 Seconds (9.4-12.1) H 02/28/19 15:15 - VTE Reasons for not Prescribing Prophylaxis: Not indicated-Anticoagulated or INR therapeutic Consult Discharge Plan - Plan Referrals: [facility] [Outside] - 03/14/19 1:15 pm __ (3) Sepsis Qualifiers: Sepsis type: sepsis due to unspecified organism Sepsis acute organ dysfunction status: unspecified Qualified Code(s): A41.9 - Sepsis, unspecified organism (12) HTN (hypertension) Qualifiers: Hypertension type: essential hypertension Qualified Code(s): I10 - Essential (primary) hypertension
[2019-03-07] MEDS: Temazepam 15 MG CAPSULE PO SCH (20:51)
[2019-03-07] MEDS: OLANZapine 5 MG TAB.RAPDIS PO SCH (20:52)
[2019-03-07] MEDS: Melatonin 3 MG TABLET PO SCH (20:52)
[2019-03-07] MEDS: *HR* OxyCODONE Immed Rel 5 MG TABLET PO PRN (21:16)
[2019-03-08 01:06] LABS: Mean Corpuscular HGB Conc 32.4 g/dL (31.6-35.5); Mean Corpuscular Hemoglobin 29.1 pg (28.0-33.3); Mean Corpuscular Volume 89.6 fL (83.0-100.0); Mean Platelet Volume 9.6 fL (9.4-12.4); Platelet Count 374 K/mcL (140-400); Red Blood Count 4.13 M/mcL (4.19-5.50); Red Cell Distribution Width 14.5 % (11.5-14.5); White Blood Count 11.7 K/mcL (4.3-11.1)
[2019-03-08 01:29] LABS: Alanine Aminotransferase 67 Units/L (7-52); Albumin 2.9 g/dL (3.5-5.7); Alkaline Phosphatase 129 Units/L (34-104); Aspartate Amino Transferase 38 Units/L (13-39); BUN/Creatinine Ratio 24 (6-26); Bilirubin,Total 0.6 mg/dL (0.3-1.0); Blood Urea Nitrogen 21 mg/dL (8-23); Calcium 8.7 mg/dL (8.6-10.3); Carbon Dioxide 30 mEq/L (23-29); Chloride 97 mEq/L (98-107); Glucose 123 mg/dL (70-105); Osmolality,Calculated 282 (280-300); Potassium 4.1 mEq/L (3.5-5.1); Sodium 134 mEq/L (136-145); Total Protein 5.9 g/dL (6.4-8.9); eGFR For African Americans > 60 (> 60); eGFR For Non-African Americans > 60 (> 60)
[2019-03-08] MEDS: *HR* OxyCODONE Immed Rel 5 MG TABLET PO PRN (03:18)
[2019-03-08] MEDS: *HR* Heparin 5,000 UNIT/ML VIAL SQ SCH ×3 (05:00→20:55)
[2019-03-08] MEDS: Ipratropium/Albuterol Neb 3 ML IH SCH ×4 (07:17→20:07)
[2019-03-08] MEDS: Budesonide/Formoterol 160/4.5 1 PUFF INH IH SCH ×2 (07:18→20:07)
[2019-03-08] MEDS: Gabapentin 300 MG CAPSULE PO SCH ×2 (08:17→20:56)
[2019-03-08] MEDS: Famotidine 20 MG TABLET PO SCH (08:18)
[2019-03-08] MEDS: Aspirin 81 MG TAB.CHEW PO SCH (08:18)
[2019-03-08] MEDS: Folic Acid 1 MG TABLET PO SCH (08:18)
[2019-03-08] MEDS: rOPINIRole 0.25 MG TABLET PO SCH ×2 (08:18→20:55)
[2019-03-08] MEDS: hydroCHLOROthiazide 25 MG TABLET PO SCH (08:21)
[2019-03-08] MEDS: Isosorbide MONOnitrate (24 HR) 30 MG TAB.ER.24H PO SCH (08:21)
[2019-03-08] MEDS: Metoprolol XL (24 HR) Succ 25 MG TAB.ER.24H PO SCH (08:21)
[2019-03-08] MEDS: Cholecalciferol (D-3) 1,000 UNIT (25MCG) TABLET PO SCH (08:21)
[2019-03-08] MEDS: Nicotine 21 MG PATCH.TD24 TD SCH (08:29)
--- NOTE | 2019-03-08 08:34 | Pulmonology Progress Note ---
<Jerry Yoder - Last Filed: 03/08/19 13:41> Date of Encounter: 03/08/19 Time of Encounter: 10:59 Assessment and Plan (1) Acute on chronic respiratory failure Current Visit: Yes Status: Acute Acute resp failture - Secondary to PNA and COPD - High supplemental O2 requirement - Remains on High-flow nasal cannula Plan: - Attempt to wean O2 - Pt encouraged to sit in chair, use incentive spirometer - Continue to monitor - Contine PNA and COPD treatments Qualifiers: Respiratory failure complication: hypoxia Qualified Code(s): J96.21 - Acute and chronic respiratory failure with hypoxia (2) Hemoptysis Current Visit: Yes Status: Resolved Hemoptysis - Resolved - Likely secondary to PNA/Plavix use/Acute lung injury Plan: - Continue plavix, will discontinue if hemoptysis worsens. - Pt instructed to collect any hemoptysis in bedside cup - No acute need for bronchoscopy - Will continue to follow (3) Pneumonia Current Visit: Yes Status: Acute CAP - Severe community-acquired pneumonia - MRSA - CXR shows improvement Plan: - Continue IV vanc - 14 day coarse through 03/13/19 Qualifiers: Pneumonia type: due to methicillin-resistant Staphylococcus aureus (MRSA) Laterality: bilateral Lung location: upper lobe of lung Qualified Code(s): J15.212 - Pneumonia due to Methicillin resistant Staphylococcus aureus (4) COPD with acute exacerbation Current Visit: Yes Status: Acute Hx of COPD - Acute exacerbation - Requiring supplemental O2 - No O2 use at home Plan: - Continue high-flow O2 - O2 goal of >88% - Duonebs q4 - Simbicort BID (5) Abnormal CT scan, chest Current Visit: Yes Status: Acute CT chest - Left-sided infiltrates on emphysematous changes. - Secondary to COPD and MRSA PNA (6) Coronary artery disease Current Visit: Yes Status: Acute CAD - On plavix Qualifiers: Coronary Disease-Associated Artery/Lesion type: unspecified vessel or lesion type [place] vs. transplanted heart: tribal heart Associated angina: without angina Qualified Code(s): I25.10 - Atherosclerotic heart disease of tribal c oronary artery without angina pectoris Subjective Principal diagnosis: Hemoptysis Interval history: Pt seen and examined. Afebrile. No overnight events. Patient lying in bed. More alert today. Patient lying in bed breathing comfortably on high flow nasal cannula. Unable to be titrated to desaturations. Patient denies fever, shortness of breath, chest pain, cough. Objective PUL Vital signs: Last Vital Signs Temp 98.6 F 03/08/19 07:23 Pulse 91 03/08/19 07:23 Resp 18 03/08/19 07:23 BP 103/77 03/08/19 07:23 Pulse Ox 93 03/08/19 07:23 Gen: Vitals noted. No acute distress. On High flow O2 Eyes: anicteric sclerae, moist conjunctivae. HENT: Atraumatic, normocephalic. oropharynx clear with moist mucous membranes and no mucosal ulcerations Neck: Trachea midline, no thyromegaly or lymphadenopathy Cardiac: RRR, no murmurs, rubs or gallops, S1/S2 Pulmonary: Mild BL expiratory wheezes. No crackles, or ronchi. Equal chest expansion Abdomen: soft, nontender, no rigidity or guarding. No masses or hepatosplenomegaly MSK: ROM intact, no joint swelling noted Extremities: no BLE edema, nontender calf, no cyanosis or clubbing Skin: Normal temperature, turgor and texture; no rash, ulcers or subcutaneous nodules Neuro: moves all extremities, no focal deficits. Psych: Appropriate mood and behavior. A&Ox3 Results - Laboratory Findings CBC and BMP: 03/08/19 00:56 03/08/19 00:56 ABG ABG pH 7.48 pH Units (7.32-7.45) H 03/07/19 06:36 ABG pCO2 42 mmHg (35-45) 03/07/19 06:36 ABG pO2 51 mmHg (85-104) L 03/07/19 06:36 ABG O2 Saturation 88 % (95-98) L 03/07/19 06:36 PT/INR, D-dimer PT 12.3 Seconds (9.4-12.1) H 02/28/19 15:15 Abnormal lab findings: Abnormal lab results WBC 11.7 K/mcL (4.3-11.1) H 03/08/19 00:56 RBC 4.13 M/mcL (4.19-5.50) L 03/08/19 00:56 Hgb 12.0 g/dL (12.9-16.9) L 03/08/19 00:56 Hct 37.0 % (37.5-50.1) L 03/08/19 00:56 Neutrophils # 11.2 K/mcL (1.6-8.9) H 02/27/19 06:24 Lymphocytes # 0.3 K/mcL (0.6-4.6) L 03/01/19 05:01 Percent Retic 1.3 % (1.6-2.8) L 03/04/19 04:44 PT 12.3 Seconds (9.4-12.1) H 02/28/19 15:15 ABG pH 7.48 pH Units (7.32-7.45) H 03/07/19 06:36 ABG pO2 51 mmHg (85-104) L 03/07/19 06:36 ABG HCO3 31 mEq/L (21-27) H 03/07/19 06:36 ABG Total CO2 32 mEq/L (20-26) H 03/07/19 06:36 ABG O2 Saturation 88 % (95-98) L 03/07/19 06:36 ABG Base Excess 7 mEq/L (-2 to 3) H 03/07/19 06:36 Sodium 134 mEq/L (136-145) L 03/08/19 00:56 Potassium 2.9 mEq/L (3.5-5.1) L 03/02/19 07:10 Chloride 97 mEq/L (98-107) L 03/08/19 00:56 Carbon Dioxide 30 mEq/L (23-29) H 03/08/19 00:56 Glucose 123 mg/dL (70-105) H 03/08/19 00:56 Calculated Osmolality 275 (280-300) L 02/26/19 21:27 Calcium 8.3 mg/dL (8.6-10.3) L 03/02/19 07:10 Iron 32 mcg/dL (65-175) L 03/04/19 04:44 % Saturation 16 % (20-55) L 03/04/19 04:44 Transferrin 144 mg/dL (203-362) L 03/04/19 04:44 AST 85 Units/L (13-39) H 03/03/19 04:29 ALT 67 Units/L (7-52) H 03/08/19 00:56 Alkaline Phosphatase 129 Units/L (34-104) H 03/08/19 00:56 Serum Total Protein 5.9 g/dL (6.4-8.9) L 03/08/19 00:56 Albumin 2.9 g/dL (3.5-5.7) L 03/08/19 00:56 Albumin/Globulin Ratio 1.0 (1.1-2.2) L 03/08/19 00:56 Vitamin B12 166 pg/mL (250-1100) L 03/04/19 04:44 Ur Specific [place] 1.007 (1.010-1.025) L 03/01/19 01:14 Nasal Screen MRSA (PCR) DETECTED (Not Detect) A 02/28/19 14:42 Vancomycin Trough 14 mcg/mL (5-10) H 03/06/19 14:51 Urine Opiates Screen Positive ng/mL (Uiitpo=767) H 03/01/19 01:14 - Clinical Findings Intake & Output: Intake & Output 03/07/19 03/08/19 03/08/19 23:59 07:59 15:59 Intake Total 250 / 1000 250 / 250 Output Total 680 / 680 200 / 200 Balance -430 / 320 50 / 50 - VTE Reasons for not Prescribing Prophylaxis: Not indicated-Anticoagulated or INR therapeutic Consult Discharge Plan - Plan Referrals: [facility] [Outside] - 03/14/19 1:15 pm <Jadyn Gaviria - Last Filed: 03/08/19 13:48> Date of Encounter: 03/08/19 Objective PUL Vital signs: Last Vital Signs Temp 97.3 F L 03/08/19 11:30 Pulse 92 03/08/19 11:30 Resp 16 03/08/19 11:30 BP 91/63 03/08/19 11:30 Pulse Ox 100 03/08/19 11:30 Results - Laboratory Findings CBC and BMP: 03/08/19 00:56 03/08/19 00:56 ABG ABG pH 7.48 pH Units (7.32-7.45) H 03/07/19 06:36 ABG pCO2 42 mmHg (35-45) 03/07/19 06:36 ABG pO2 51 mmHg (85-104) L 03/07/19 06:36 ABG O2 Saturation 88 % (95-98) L 03/07/19 06:36 PT/INR, D-dimer PT 12.3 Seconds (9.4-12.1) H 02/28/19 15:15 Abnormal lab findings: Abnormal lab results WBC 11.7 K/mcL (4.3-11.1) H 03/08/19 00:56 RBC 4.13 M/mcL (4.19-5.50) L 03/08/19 00:56 Hgb 12.0 g/dL (12.9-16.9) L 03/08/19 00:56 Hct 37.0 % (37.5-50.1) L 03/08/19 00:56 Neutrophils # 11.2 K/mcL (1.6-8.9) H 02/27/19 06:24 Lymphocytes # 0.3 K/mcL (0.6-4.6) L 03/01/19 05:01 Percent Retic 1.3 % (1.6-2.8) L 03/04/19 04:44 PT 12.3 Seconds (9.4-12.1) H 02/28/19 15:15 ABG pH 7.48 pH Units (7.32-7.45) H 03/07/19 06:36 ABG pO2 51 mmHg (85-104) L 03/07/19 06:36 ABG HCO3 31 mEq/L (21-27) H 03/07/19 06:36 ABG Total CO2 32 mEq/L (20-26) H 03/07/19 06:36 ABG O2 Saturation 88 % (95-98) L 03/07/19 06:36 ABG Base Excess 7 mEq/L (-2 to 3) H 03/07/19 06:36 Sodium 134 mEq/L (136-145) L 03/08/19 00:56 Potassium 2.9 mEq/L (3.5-5.1) L 03/02/19 07:10 Chloride 97 mEq/L (98-107) L 03/08/19 00:56 Carbon Dioxide 30 mEq/L (23-29) H 03/08/19 00:56 Glucose 123 mg/dL (70-105) H 03/08/19 00:56 Calculated Osmolality 275 (280-300) L 02/26/19 21:27 Calcium 8.3 mg/dL (8.6-10.3) L 03/02/19 07:10 Iron 32 mcg/dL (65-175) L 03/04/19 04:44 % Saturation 16 % (20-55) L 03/04/19 04:44 Transferrin 144 mg/dL (203-362) L 03/04/19 04:44 AST 85 Units/L (13-39) H 03/03/19 04:29 ALT 67 Units/L (7-52) H 03/08/19 00:56 Alkaline Phosphatase 129 Units/L (34-104) H 03/08/19 00:56 Serum Total Protein 5.9 g/dL (6.4-8.9) L 03/08/19 00:56 Albumin 2.9 g/dL (3.5-5.7) L 03/08/19 00:56 Albumin/Globulin Ratio 1.0 (1.1-2.2) L 03/08/19 00:56 Vitamin B12 166 pg/mL (250-1100) L 03/04/19 04:44 Ur Specific [place] 1.007 (1.010-1.025) L 03/01/19 01:14 Nasal Screen MRSA (PCR) DETECTED (Not Detect) A 02/28/19 14:42 Vancomycin Trough 14 mcg/mL (5-10) H 03/06/19 14:51 Urine Opiates Screen Positive ng/mL (Mcfuvh=128) H 03/01/19 01:14 - Clinical Findings Intake & Output: Intake & Output 03/07/19 03/08/19 03/08/19 23:59 07:59 15:59 Intake Total 250 / 1000 250 / 730 480 / 730 Output Total 680 / 680 200 / 580 380 / 580 Balance -430 / 320 50 / 150 100 / 150 - Attending Attestation I saw and evaluated this patient and my medical decision-making was reviewed with the Resident Physician. I agree with the documented findings, disposition and treatment plan as described except to the extent set forth below. We independently had [id number] contact with the patient Patient seen and examined at bedside Labs, radiology, chart personally reviewed. Patient with advanced emphysematous disease with MRSA pneumonia to complete 14 Day course of IV vancomycin and also prolonged steroid taper over 30 days. Transitioned to nasal cannula. To continue incentive spirometry and airway clearance therapy pulmonary we will sign off wheeze call with questions. Please on discharge please make sure he has nebulizer and on long-acting muscarinic antagonist
[2019-03-08] MEDS: *HR* HYDROcodone/Acet 5/325 mg TABLET PO PRN (14:36)
--- NOTE | 2019-03-08 19:01 | Internal Med Progress Note ---
Hospitalist Progress Note - Encounter Date of Encounter: 03/08/19 Time of Encounter: 14:15 - Subjective Interval History: Mr Caro reports some mild improvement with regard to his shortness of breath, per nursing staff he was able to tolerate being weaned off high flow. Discussed with patient regarding discharge planning he is now agreeable to ECF placement case management will work on possible placement given that he is [facility] although with low service connection. GEN: Denies fever, chills or malaise HEENT: Denies headache blurriness, or dysphagia RESP: reports slight improved SOB or cough CV: Denies chest pain or palpitations GI: Denies Nausea, vomiting, diarrhea or constipation Reviewed current in hospital medications with modifications see orders Reviewed Routine labs - Exam Vitals: Temp Pulse Resp BP Pulse Ox 98.1 F 93 17 97/77 95 03/08/19 16:31 03/08/19 16:31 03/08/19 16:31 03/08/19 16:31 03/08/19 16:31 Exam: GEN: Slightly emaciated NAD, A&O x 3, Pleasant and conversant SKIN: [place] warm acyanotic not jaundice HEART: RRR, no murmurs LUNGS: Diminished bilaterally no wheeze , few scattered crackles, overall non labored ABDOMEN; Soft, non tender or distended, BS x 4 normactive EXT: No LE edema, Pedal pulses 1+, radial pulses 2+ PSYCH: Mood and affect is appropriate - Assessment and Plan (1) Acute respiratory failure with hypoxia Current Visit: Yes Status: Acute Assessment and Plan: Likely multifactorial underlying COPD recent MRSA pneumonia patient appears to be having difficult weaning down oxygen therapy, continue mechanical airway clearance. Continue to wean down oxygen if tolerated (2) MRSA pneumonia Current Visit: Yes Status: Acute Assessment and Plan: Sputum culture was positive for MRSA is currently on vancomycin day 5, given his extensive COPD emphysema anticipate slow recovery. He is now agreeable to discharge to ECF if possible for continued rehabilitation (3) Sepsis Current Visit: Yes Status: Resolved Assessment and Plan: Resolved. Secondary to MRSA pneumonia (4) UTI (urinary tract infection) Current Visit: Yes Status: Acute Assessment and Plan: Resolved (5) COPD with exacerbation Current Visit: Yes Status: Acute Assessment and Plan: Continue DuoNeb, given his advanced COPD would benefit from continued rehabilitation at an ECF (6) Abnormal CT of the chest Current Visit: Yes Status: Acute Assessment and Plan: Patient will need repeat CT scan in 6-8 weeks as an out Patient (7) Normocytic anemia Current Visit: Yes Status: Acute Assessment and Plan: In the setting of hemoptysis hemoglobin is stable continue to trend up 11.5-11.9-12 (8) Vitamin B 12 deficiency Current Visit: Yes Status: Acute Assessment and Plan: Continue supplementation (9) Hypokalemia Current Visit: Yes Status: Acute Assessment and Plan: Resolved potassium is 4.1 (10) Elevated LFTs Current Visit: Yes Status: Acute Assessment and Plan: ALT trending down [id number], however AST has normalized (11) Generalized weakness Current Visit: Yes Status: Acute Assessment and Plan: Cardiovascular physical therapy and chemotherapy likely discharge to [facility] for continued rehabilitation (12) HTN (hypertension) Current Visit: Yes Status: Chronic Assessment and Plan: Blood pressure is low normal we will hold BP meds DVT Prophylaxis: Heparin subcutaneous - Time Spent with Patient Total time spent is greater than 50% in coordination of care (as documented) at patient's floor/unit and/or counseling patient: Plan of Care Discussed with: nurse Internal Medicine: Result - Labs CBC & Chem 7: 03/08/19 00:56 03/08/19 00:56 Labs: Short CBC 03/08/19 Range/Units 00:56 WBC 11.7 H (4.3-11.1) K/mcL Hgb 12.0 L (12.9-16.9) g/dL Hct 37.0 L (37.5-50.1) % Plt Count 374 (140-400) K/mcL BMP 03/08/19 00:56 Sodium 134 L Potassium 4.1 Chloride 97 L Carbon Dioxide 30 H BUN 21 Creatinine 0.89 Glucose 123 H Calcium 8.7 Liver Function 03/08/19 Range/Units 00:56 Total Bilirubin 0.6 (0.3-1.0) mg/dL AST 38 (13-39) Units/L ALT 67 H (7-52) Units/L Alkaline Phosphatase 129 H (34-104) Units/L Albumin 2.9 L (3.5-5.7) g/dL - ABG Interpretation ABG results: ABG ABG pH 7.48 pH Units (7.32-7.45) H 03/07/19 06:36 ABG pCO2 42 mmHg (35-45) 03/07/19 06:36 ABG pO2 51 mmHg (85-104) L 03/07/19 06:36 ABG O2 Saturation 88 % (95-98) L 03/07/19 06:36 PT/INR, D-dimer PT 12.3 Seconds (9.4-12.1) H 02/28/19 15:15 - VTE Reasons for not Prescribing Prophylaxis: Not indicated-Anticoagulated or INR therapeutic Consult Discharge Plan - Plan Referrals: [facility] [Outside] - 03/14/19 1:15 pm (3) Sepsis Qualifiers: Sepsis type: sepsis due to unspecified organism Sepsis acute organ dysfunction status: unspecified Qualified Code(s): A41.9 - Sepsis, unspecified organism (12) HTN (hypertension) Qualifiers: Hypertension type: essential hypertension Qualified Code(s): I10 - Essential (primary) hypertension
[2019-03-08] MEDS: Melatonin 3 MG TABLET PO SCH (20:56)
[2019-03-08] MEDS: Temazepam 15 MG CAPSULE PO SCH (20:56)
[2019-03-08] MEDS: OLANZapine 5 MG TAB.RAPDIS PO SCH (20:56)
[2019-03-09 01:34] LABS: Hematocrit 37.8 % (37.5-50.1); Hemoglobin 12.2 g/dL (12.9-16.9); Mean Corpuscular HGB Conc 32.3 g/dL (31.6-35.5); Mean Corpuscular Hemoglobin 28.8 pg (28.0-33.3); Mean Corpuscular Volume 89.2 fL (83.0-100.0); Mean Platelet Volume 9.9 fL (9.4-12.4); Platelet Count 406 K/mcL (140-400); Red Blood Count 4.24 M/mcL (4.19-5.50); Red Cell Distribution Width 14.5 % (11.5-14.5); White Blood Count 14.9 K/mcL (4.3-11.1)
[2019-03-09 01:53] LABS: Alanine Aminotransferase 52 Units/L (7-52); Albumin 2.9 g/dL (3.5-5.7); Albumin/Globulin Ratio 0.9 (1.1-2.2); Alkaline Phosphatase 126 Units/L (34-104); Aspartate Amino Transferase 25 Units/L (13-39); BUN/Creatinine Ratio 21 (6-26); Bilirubin,Total 0.7 mg/dL (0.3-1.0); Blood Urea Nitrogen 16 mg/dL (8-23); Calcium 8.7 mg/dL (8.6-10.3); Carbon Dioxide 27 mEq/L (23-29); Chloride 97 mEq/L (98-107); Globulin 3.2 g/dL (2.4-3.5); Glucose 120 mg/dL (70-105); Osmolality,Calculated 276 (280-300); Potassium 3.8 mEq/L (3.5-5.1); Sodium 132 mEq/L (136-145); Total Protein 6.1 g/dL (6.4-8.9); eGFR For African Americans > 60 (> 60); eGFR For Non-African Americans > 60 (> 60)
[2019-03-09] MEDS: *HR* Heparin 5,000 UNIT/ML VIAL SQ SCH ×3 (05:51→20:39)
[2019-03-09] MEDS: Ipratropium/Albuterol Neb 3 ML IH SCH ×4 (07:39→20:05)
[2019-03-09] MEDS: Budesonide/Formoterol 160/4.5 1 PUFF INH IH SCH ×2 (07:40→20:05)
[2019-03-09] MEDS: Famotidine 20 MG TABLET PO SCH (09:30)
[2019-03-09] MEDS: Aspirin 81 MG TAB.CHEW PO SCH (09:30)
[2019-03-09] MEDS: Folic Acid 1 MG TABLET PO SCH (09:30)
[2019-03-09] MEDS: Cholecalciferol (D-3) 1,000 UNIT (25MCG) TABLET PO SCH (09:30)
[2019-03-09] MEDS: Metoprolol XL (24 HR) Succ 25 MG TAB.ER.24H PO SCH (09:31)
[2019-03-09] MEDS: rOPINIRole 0.25 MG TABLET PO SCH ×2 (09:31→20:38)
[2019-03-09] MEDS: Gabapentin 300 MG CAPSULE PO SCH ×2 (09:31→20:38)
[2019-03-09] MEDS: Isosorbide MONOnitrate (24 HR) 30 MG TAB.ER.24H PO SCH (09:33)
[2019-03-09] MEDS: hydroCHLOROthiazide 25 MG TABLET PO SCH (09:33)
[2019-03-09] MEDS: Nicotine 21 MG PATCH.TD24 TD SCH (09:37)
--- NOTE | 2019-03-09 15:45 | Internal Med Progress Note ---
Hospitalist Progress Note - Encounter Date of Encounter: 03/09/19 Time of Encounter: 12:15 - Subjective Interval History: Mr Caro stated he is tolerating his physical therapy and meals GEN: Denies fever, chills or malaise HEENT: Denies headache blurriness, or dysphagia RESP: Admits to stable SOB and cough CV: Denies chest pain or palpitations GI: Denies Nausea, vomiting, diarrhea or constipation Reviewed current in hospital medications with modifications see orders Reviewed Routine labs - Exam Vitals: Temp Pulse Resp BP Pulse Ox 98.6 F 97 18 109/60 92 03/09/19 11:55 03/09/19 11:55 03/09/19 11:55 03/09/19 11:55 03/09/19 11:55 Exam: GEN: Slightly emaciated NAD, A&O x 3, Pleasant and conversant SKIN: [place] warm acyanotic not jaundice HEART: RRR, no murmurs LUNGS: Diminished bilaterally no wheeze some improvement from yesterday exam , few scattered crackles, overall non labored ABDOMEN; Soft, non tender or distended, BS x 4 normactive EXT: No LE edema, Pedal pulses 1+, radial pulses 2+ PSYCH: Mood and affect is appropriate - Assessment and Plan (1) Acute respiratory failure with hypoxia Current Visit: Yes Status: Acute Assessment and Plan: Likely multifactorial underlying COPD recent MRSA pneumonia patient appears to be having difficult weaning down oxygen therapy, continue mechanical airway clearance. Continue to wean down oxygen if tolerated, now on 5 L (2) MRSA pneumonia Current Visit: Yes Status: Acute Assessment and Plan: Sputum culture was positive for MRSA is currently on vancomycin day 7, given his extensive COPD emphysema anticipate slow recovery. He is now agreeable to discharge to ECF if possible for continued rehabilitation (3) Sepsis Current Visit: Yes Status: Resolved Assessment and Plan: Resolved. Secondary to MRSA pneumonia, blood cultures were negative (4) UTI (urinary tract infection) Current Visit: Yes Status: Acute Assessment and Plan: Resolved (5) COPD with exacerbation Current Visit: Yes Status: Acute Assessment and Plan: Continue DuoNeb, given his advanced COPD would benefit from continued rehabilitation at an ECF (6) Abnormal CT of the chest Current Visit: Yes Status: Acute Assessment and Plan: Patient will need repeat CT scan in 6-8 weeks as an out Patient (7) Normocytic anemia Current Visit: Yes Status: Acute Assessment and Plan: In the setting of hemoptysis hemoglobin is stable continue to trend up 11.5-11.9-12-12.2 (8) Vitamin B 12 deficiency Current Visit: Yes Status: Acute Assessment and Plan: Continue supplementation (9) Hypokalemia Current Visit: Yes Status: Acute Assessment and Plan: Resolved potassium normalized (10) Elevated LFTs Current Visit: Yes Status: Acute Assessment and Plan: ALT trending down [id number] now in normal limits, however AST has normalized (11) Generalized weakness Current Visit: Yes Status: Acute Assessment and Plan: encourage physical therapy (12) HTN (hypertension) Current Visit: Yes Status: Chronic Assessment and Plan: Normotensive will resume medications DVT Prophylaxis: Heparin subcutaneous - Time Spent with Patient Total time spent is greater than 50% in coordination of care (as documented) at patient's floor/unit and/or counseling patient: Plan of Care Discussed with: nurse Internal Medicine: Result - Labs CBC & Chem 7: 03/09/19 01:20 03/09/19 01:20 Labs: Short CBC 03/09/19 Range/Units 01:20 WBC 14.9 H (4.3-11.1) K/mcL Hgb 12.2 L (12.9-16.9) g/dL Hct 37.8 (37.5-50.1) % Plt Count 406 H (140-400) K/mcL BMP 03/09/19 01:20 Sodium 132 L Potassium 3.8 Chloride 97 L Carbon Dioxide 27 BUN 16 Creatinine 0.78 Glucose 120 H Calcium 8.7 Liver Function 03/09/19 Range/Units 01:20 Total Bilirubin 0.7 (0.3-1.0) mg/dL AST 25 (13-39) Units/L ALT 52 (7-52) Units/L Alkaline Phosphatase 126 H (34-104) Units/L Albumin 2.9 L (3.5-5.7) g/dL - ABG Interpretation ABG results: ABG ABG pH 7.48 pH Units (7.32-7.45) H 03/07/19 06:36 ABG pCO2 42 mmHg (35-45) 03/07/19 06:36 ABG pO2 51 mmHg (85-104) L 03/07/19 06:36 ABG O2 Saturation 88 % (95-98) L 03/07/19 06:36 PT/INR, D-dimer PT 12.3 Seconds (9.4-12.1) H 02/28/19 15:15 - VTE Reasons for not Prescribing Prophylaxis: Not indicated-Anticoagulated or INR therapeutic Consult Discharge Plan - Plan Referrals: [facility] [Outside] - 03/14/19 1:15 pm (3) Sepsis Qualifiers: Sepsis type: sepsis due to unspecified organism Sepsis acute organ dysfunction status: unspecified Qualified Code(s): A41.9 - Sepsis, unspecified organism (12) HTN (hypertension) Qualifiers: Hypertension type: essential hypertension Qualified Code(s): I10 - Essential (primary) hypertension
[2019-03-09] MEDS: *HR* HYDROcodone/Acet 5/325 mg TABLET PO PRN (19:38)
[2019-03-09] MEDS: Temazepam 15 MG CAPSULE PO SCH (20:38)
[2019-03-09] MEDS: Melatonin 3 MG TABLET PO SCH (20:39)
[2019-03-09] MEDS: OLANZapine 5 MG TAB.RAPDIS PO SCH (20:39)
[2019-03-10 03:12] LABS: Basophils % 0.1 %; Eosinophils % 0.2 %; Immature Granulocytes % 1.5 % (0-4); Lymphocytes # 1.2 K/mcL (0.6-4.6); Lymphocytes % 11.9 %; Mean Corpuscular HGB Conc 32.4 g/dL (31.6-35.5); Mean Corpuscular Hemoglobin 29.4 pg (28.0-33.3); Mean Corpuscular Volume 90.9 fL (83.0-100.0); Mean Platelet Volume 9.7 fL (9.4-12.4); Monocytes # 0.8 K/mcL (0.0-1.3); Monocytes % 7.9 %; Neutrophils # 8.1 K/mcL (1.6-8.9); Platelet Count 402 K/mcL (140-400); Red Blood Count 3.74 M/mcL (4.19-5.50); Red Cell Distribution Width 14.5 % (11.5-14.5); Segmented Neutrophils % 78.4 %; White Blood Count 10.4 K/mcL (4.3-11.1)
[2019-03-10 03:31] LABS: BUN/Creatinine Ratio 17 (6-26); Blood Urea Nitrogen 15 mg/dL (8-23); Calcium 8.6 mg/dL (8.6-10.3); Carbon Dioxide 29 mEq/L (23-29); Chloride 97 mEq/L (98-107); Glucose 117 mg/dL (70-105); Magnesium 2.2 mg/dL (1.6-2.6); Osmolality,Calculated 280 (280-300); Phosphorous 5.4 mg/dL (2.7-4.5); Potassium 3.6 mEq/L (3.5-5.1); Sodium 134 mEq/L (136-145); eGFR For African Americans > 60 (> 60); eGFR For Non-African Americans > 60 (> 60)
[2019-03-10] MEDS: *HR* Heparin 5,000 UNIT/ML VIAL SQ SCH ×3 (05:30→21:35)
[2019-03-10] MEDS: Metoprolol XL (24 HR) Succ 25 MG TAB.ER.24H PO SCH (07:37)
[2019-03-10] MEDS: Cholecalciferol (D-3) 1,000 UNIT (25MCG) TABLET PO SCH (07:37)
[2019-03-10] MEDS: Folic Acid 1 MG TABLET PO SCH (07:37)
[2019-03-10] MEDS: rOPINIRole 0.25 MG TABLET PO SCH ×2 (07:37→21:36)
[2019-03-10] MEDS: hydroCHLOROthiazide 25 MG TABLET PO SCH (07:37)
[2019-03-10] MEDS: Aspirin 81 MG TAB.CHEW PO SCH (07:38)
[2019-03-10] MEDS: Famotidine 20 MG TABLET PO SCH (07:38)
[2019-03-10] MEDS: Nicotine 21 MG PATCH.TD24 TD SCH (07:38)
[2019-03-10] MEDS: Gabapentin 300 MG CAPSULE PO SCH ×2 (07:38→21:35)
[2019-03-10] MEDS: Isosorbide MONOnitrate (24 HR) 30 MG TAB.ER.24H PO SCH (07:38)
[2019-03-10] MEDS: Budesonide/Formoterol 160/4.5 1 PUFF INH IH SCH ×2 (08:08→20:23)
[2019-03-10] MEDS: Ipratropium/Albuterol Neb 3 ML IH SCH ×4 (08:08→20:22)
[2019-03-10] MEDS ORDERED: *HR* Metoprolol 5 MG/5 ML VIAL IVP ONE ×2 (10:37→11:31)
[2019-03-10] MEDS: *HR* HYDROcodone/Acet 5/325 mg TABLET PO PRN (15:17)
--- NOTE | 2019-03-10 18:05 | Internal Med Progress Note ---
Hospitalist Progress Note - Encounter Date of Encounter: 03/10/19 Time of Encounter: 15:00 - Subjective Interval History: Had discharge planning discussions with the patient's she was concerned about bringing him home given his history of MRSA pneumonia given that she is currently caring for her mother. Patient has been using his incentive spirome try religiously and have correlated is improved shortness of breath to his dedicated usage of the incentive spirometry and is requested to take it home. GEN: Denies fever, chills or malaise HEENT: Denies headache blurriness, or dysphagia RESP: reports improved SOB and cough CV: Denies chest pain or palpitations GI: Denies Nausea, vomiting, diarrhea or constipation Reviewed current in hospital medications with modifications see orders Reviewed Routine labs - Exam Vitals: Temp Pulse Resp BP Pulse Ox 98.6 F 94 16 110/72 95 03/10/19 15:39 03/10/19 15:39 03/10/19 16:10 03/10/19 15:39 03/10/19 16:10 Exam: GEN: Slightly emaciated NAD, A&O x 3, Pleasant and conversant, at his bedside SKIN: [place] warm acyanotic not jaundice HEART: RRR, no murmurs LUNGS: Diminished bilaterally appears CTA, few scattered crackles, overall non labored ABDOMEN; Soft, non tender or distended, BS x 4 normactive EXT: No LE edema, Pedal pulses 1+, radial pulses 2+ PSYCH: Mood and affect is appropriate - Assessment and Plan (1) Acute respiratory failure with hypoxia Current Visit: Yes Status: Acute Assessment and Plan: Improvement since patient became dedicated to use and his incentive spirometry, oxygen requirements have been weaned down to about 3-4 L nasal cannula. This is likely new baseline for the patient will be sent home on oxygen Likely multifactorial underlying COPD recent MRSA pneumonia patient appears to be having difficult weaning down oxygen therapy, continue mechanical airway clearance. (2) MRSA pneumonia Current Visit: Yes Status: Acute Assessment and Plan: Sputum culture was positive for MRSA is currently on vancomycin day 7, given his extensive COPD emphysema anticipate slow recovery. He is now agreeable to discharge to [facility] if possible for continued rehabilitation, he will need to set up for out pt IV vancomycin to complete 14 days course therapy last dose 03/13/2019 (3) Sepsis Current Visit: Yes Status: Resolved Assessment and Plan: Resolved. Secondary to MRSA pneumonia, blood cultures were negative (4) UTI (urinary tract infection) Current Visit: Yes Status: Acute Assessment and Plan: Resolved (5) COPD with exacerbation Current Visit: Yes Status: Acute Assessment and Plan: Continue DuoNeb, given his advanced COPD would benefit from continued rehabilitation at an [facility] (6) Abnormal CT of the chest Current Visit: Yes Status: Acute Assessment and Plan: Patient will need repeat CT scan in 6-8 weeks as an out Patient (7) Normocytic anemia Current Visit: Yes Status: Acute Assessment and Plan: In the setting of hemoptysis hemoglobin is stable continue to trend up 11.5-11.9-12-12.2-11 (8) Vitamin B 12 deficiency Current Visit: Yes Status: Acute Assessment and Plan: Continue supplementation (9) Hypokalemia Current Visit: Yes Status: Acute Assessment and Plan: Resolved potassium normalized (10) Elevated LFTs Current Visit: Yes Status: Acute Assessment and Plan: ALT trending down [id number] now in normal limits, however AST has normalized (11) Generalized weakness Current Visit: Yes Status: Acute Assessment and Plan: encourage physical therapy (12) HTN (hypertension) Current Visit: Yes Status: Chronic Assessment and Plan: Normotensive on hctz/ metoprolol DVT Prophylaxis: Heparin subcutaneous - Time Spent with Patient Total time spent is greater than 50% in coordination of care (as documented) at patient's floor/unit and/or counseling patient: Internal Medicine: Result - Labs CBC & Chem 7: 03/10/19 02:56 03/10/19 02:56 Labs: Short CBC 03/10/19 Range/Units 02:56 WBC 10.4 (4.3-11.1) K/mcL Hgb 11.0 L (12.9-16.9) g/dL Hct 34.0 L (37.5-50.1) % Plt Count 402 H (140-400) K/mcL Neutrophils # 8.1 (1.6-8.9) K/mcL BMP 03/10/19 02:56 Sodium 134 L Potassium 3.6 Chloride 97 L Carbon Dioxide 29 BUN 15 Creatinine 0.89 Glucose 117 H Calcium 8.6 - ABG Interpretation ABG results: ABG ABG pH 7.48 pH Units (7.32-7.45) H 03/07/19 06:36 ABG pCO2 42 mmHg (35-45) 03/07/19 06:36 ABG pO2 51 mmHg (85-104) L 03/07/19 06:36 ABG O2 Saturation 88 % (95-98) L 03/07/19 06:36 PT/INR, D-dimer PT 12.3 Seconds (9.4-12.1) H 02/28/19 15:15 - VTE Reasons for not Prescribing Prophylaxis: Not indicated-Anticoagulated or INR therapeutic Consult Discharge Plan - Plan Referrals: [facility] [Outside] - 03/14/19 1:15 pm (3) Sepsis Qualifiers: Sepsis type: sepsis due to unspecified organism Sepsis acute organ dysfunction status: unspecified Qualified Code(s): A41.9 - Sepsis, unspecified organism (12) HTN (hypertension) Qualifiers: Hypertension type: essential hypertension Qualified Code(s): I10 - Essential (primary) hypertension
[2019-03-10] MEDS: GuaiFENesin Liq 200 MG/10 ML UDC PO PRN (21:35)
[2019-03-10] MEDS: Melatonin 3 MG TABLET PO SCH (21:35)
[2019-03-10] MEDS: traMADol 50 MG TABLET PO PRN (21:36)
[2019-03-10] MEDS: Temazepam 15 MG CAPSULE PO SCH (21:36)
[2019-03-10] MEDS: OLANZapine 5 MG TAB.RAPDIS PO SCH (21:37)
[2019-03-11 05:02] LABS: Basophils % 0.2 %; Eosinophils % 0.2 %; Hematocrit 31.9 % (37.5-50.1); Hemoglobin 10.5 g/dL (12.9-16.9); Immature Granulocytes % 1.1 % (0-4); Lymphocytes # 1.1 K/mcL (0.6-4.6); Mean Corpuscular HGB Conc 32.9 g/dL (31.6-35.5); Mean Corpuscular Hemoglobin 29.2 pg (28.0-33.3); Mean Corpuscular Volume 88.6 fL (83.0-100.0); Mean Platelet Volume 9.6 fL (9.4-12.4); Monocytes % 8.8 %; Platelet Count 479 K/mcL (140-400); Red Cell Distribution Width 14.3 % (11.5-14.5); Segmented Neutrophils % 79.7 %; White Blood Count 11.3 K/mcL (4.3-11.1)
[2019-03-11 05:12] LABS: BUN/Creatinine Ratio 15 (6-26); Blood Urea Nitrogen 12 mg/dL (8-23); Calcium 8.6 mg/dL (8.6-10.3); Carbon Dioxide 27 mEq/L (23-29); Chloride 97 mEq/L (98-107); Glucose 120 mg/dL (70-105); Magnesium 1.9 mg/dL (1.6-2.6); Osmolality,Calculated 273 (280-300); Potassium 3.8 mEq/L (3.5-5.1); Sodium 131 mEq/L (136-145); eGFR For African Americans > 60 (> 60); eGFR For Non-African Americans > 60 (> 60)
[2019-03-11] MEDS: *HR* Heparin 5,000 UNIT/ML VIAL SQ SCH ×2 (05:27→13:54)
[2019-03-11] MEDS: Ipratropium/Albuterol Neb 3 ML IH SCH ×3 (07:27→16:35)
[2019-03-11] MEDS: Budesonide/Formoterol 160/4.5 1 PUFF INH IH SCH (07:28)
[2019-03-11] MEDS: Cholecalciferol (D-3) 1,000 UNIT (25MCG) TABLET PO SCH (07:44)
[2019-03-11] MEDS: rOPINIRole 0.25 MG TABLET PO SCH (07:44)
[2019-03-11] MEDS: Famotidine 20 MG TABLET PO SCH (07:44)
[2019-03-11] MEDS: Aspirin 81 MG TAB.CHEW PO SCH (07:44)
[2019-03-11] MEDS: hydroCHLOROthiazide 25 MG TABLET PO SCH (07:45)
[2019-03-11] MEDS: Folic Acid 1 MG TABLET PO SCH (07:45)
[2019-03-11] MEDS: Isosorbide MONOnitrate (24 HR) 30 MG TAB.ER.24H PO SCH (07:45)
[2019-03-11] MEDS: Nicotine 21 MG PATCH.TD24 TD SCH (07:45)
[2019-03-11] MEDS: Metoprolol XL (24 HR) Succ 25 MG TAB.ER.24H PO SCH ×2 (07:45→13:51)
[2019-03-11] MEDS: Gabapentin 300 MG CAPSULE PO SCH (07:45)
[2019-03-11] MEDS: GuaiFENesin Liq 200 MG/10 ML UDC PO PRN (07:55)
[2019-03-11 11:32] VITALS: BP 110/74
--- NOTE | 2019-03-11 13:06 | Discharge Summary ---
- NOTES TO OUTPATIENT PROVIDER Notes to Outpatient Provider: Posthospital discharge for MRSA pneumonia acute hypoxic respiratory failure. Patient will need follow-up CT of the chest in 3-6 months to document resolution of his abdomen CT scan of groundglass opacities with mediastinal lymphadenopathy Date of Encounter: 03/11/19 Time of Encounter: 10:00 - Discharge Diagnosis (1) Acute respiratory failure with hypoxia Priority: Primary Status: Acute Assessment and Plan: Improvement since patient became dedicated to use and his incentive spirometry, oxygen requirements have been weaned down to about 3-4 L nasal cannula. This is likely new baseline for the patient will be sent home on oxygen Likely multifactorial underlying COPD recent MRSA pneumonia patient appears to be having difficult weaning down oxygen therapy, continue mechanical airway clearance. (2) MRSA pneumonia Priority: Primary Status: Acute Assessment and Plan: Sputum culture was positive for MRSA is currently on vancomycin day 12, Will dc home on doxycycline for another 7 days given his advanced COPD Qualifiers: Qualified Code(s): J15.212 - Pneumonia due to Methicillin resistant Staphylococcus aureus (3) Sepsis Priority: Primary Status: Resolved Assessment and Plan: Resolved. Secondary to MRSA pneumonia, blood cultures were negative Comments: resolved, was attributed to his MRSA pneumonia was treated with 12 days of IV vancomycin, will dc on doxycycline for another 7 days Qualifiers: Sepsis type: sepsis due to unspecified organism Sepsis acute organ dysfunction status: unspecified Qualified Code(s): A41.9 - Sepsis, unspecified organism (4) UTI (urinary tract infection) Priority: Secondary Status: Acute Assessment and Plan: Resolved Qualifiers: Urinary tract infection type: acute cystitis Hematuria presence: without hematuria Qualified Code(s): N30.00 - Acute cystitis without hematuria (5) COPD with exacerbation Priority: Secondary Status: Acute Assessment and Plan: Continue DuoNeb, given his advanced COPD would benefit from continued rehabilitation as out patient (6) Abnormal CT of the chest Priority: Secondary Status: Acute Assessment and Plan: Patient will need repeat CT scan in 3-6 weeks as an out Patient (7) Normocytic anemia Priority: Secondary Status: Acute Assessment and Plan: In the setting of hemoptysis hemoglobin is stable continue to trend up 11.5-11 .9-12-12.2-11-10.5 at discharge (8) Vitamin B 12 deficiency Priority: Secondary Status: Acute Assessment and Plan: Continue supplementation (9) Hypokalemia Priority: Secondary Status: Acute Assessment and Plan: Resolved potassium normalized (10) Elevated LFTs Priority: Secondary Status: Acute Assessment and Plan: ALT trending down [id number] now in normal limits, however AST has normalized (11) Generalized weakness Priority: Secondary Status: Acute Assessment and Plan: encourage physical therapy (12) HTN (hypertension) Priority: Secondary Status: Chronic Assessment and Plan: Normotensive on hctz/ metoprolol but due to his persistent chronic hyponatremia will discontinue hydrochlorothiazide Qualifiers: Hypertension type: essential hypertension Qualified Code(s): I10 - Essential (primary) hypertension Hospital course: Mr. Caro is a 58 year old male was hospitalized for acute respiratory failure which was attributed to MRSA pneumonia was treated with IV vancomycin. Patient was noted to be delibitated there were initial talks regarding ECF placement which he was reluctant. He continued to walk with physical therapy and respiratory therapy and he will be discharged home. He still obtain a CT scan of the chest in 3-6 weeks to document resolution of his MRSA pneumonia and lymphadenopathy noted Discharge discussed with: patient, family, nurse, social work, case management, review consultant - Time Spent with Patient Total time spent providing and/or coordinating discharge services:45 mins Specific discharge activities: Please adhere to the treatment plan congenital will continue all airway clearance and take all medications as prescribed - Discharge Medications Prescriptions: New Cyanocobalamin (Vitamin B-12) [B-12] 1,000 mcg PO QDPC #30 tablet.er Ipratropium/Albuterol Neb [Duoneb] 3 ml IH Q4HWA #100 inhsol Ferrous Sulfate 325 mg PO DAILY@0800 #30 tablet Folic Acid 1 mg PO DAILY #30 tablet Nicotine Patch [Nicoderm] 21 mg TD DAILY #30 patch.td24 HYDROcodone/Acet 5/325 mg [Benedict 5-325 mg] 1 tab PO Q6H PRN 7 Days #28 tablet PRN Reason: Pain Doxycycline 100 mg PO BID #14 capsule Continued Aspirin 81 mg PO QAM Budesonide/Formoterol 160/4.5 [Symbicort 160/4.5] 1 puff IH BID PRN PRN Reason: Shortness Of Breath Calcium Carbonate/Vitamin D3 [Calcium 1,000 + D3 Caplet] 1 each PO BID Gabapentin [Neurontin] 600 mg PO TID Melatonin [Melatin] 6 mg PO HS Metoprolol Succinate [Toprol Xl] 12.5 mg PO DAILY OLANZapine [Zyprexa] 7.5 mg PO HS rOPINIRole [Requip] 1 mg PO HS Simvastatin [Zocor] 40 mg PO HS Clopidogrel Bisulfate [Plavix] 75 mg PO DAILY #30 tablet Ranitidine HCl [Zantac] 300 mg PO DAILY #30 tablet Discontinued Omeprazole [PriLOSEC] 20 mg PO DAILY Home Medications: Aspirin 81 mg PO QAM 03/14/15 [History] Budesonide/Formoterol 160/4.5 [Symbicort 160/4.5] 1 puff IH BID PRN 03/14/15 [History] Calcium Carbonate/Vitamin D3 [Calcium 1,000 + D3 Caplet] 1 each PO BID 02/27/19 [History] Gabapentin [Neurontin] 600 mg PO TID 02/27/19 [History] Melatonin [Melatin] 6 mg PO HS 02/27/19 [History] Metoprolol Succinate [Toprol Xl] 12.5 mg PO DAILY 02/27/19 [History] OLANZapine [Zyprexa] 7.5 mg PO HS 02/27/19 [History] Simvastatin [Zocor] 40 mg PO HS 02/27/19 [History] rOPINIRole [Requip] 1 mg PO HS 02/27/19 [History] Clopidogrel Bisulfate [Plavix] 75 mg PO DAILY #30 tablet 03/11/19 [Rx] Cyanocobalamin (Vitamin B-12) [B-12] 1,000 mcg PO QDPC #30 tablet.er 03/11/19 [Rx] Doxycycline 100 mg PO BID #14 capsule 03/11/19 [Rx] Ferrous Sulfate 325 mg PO DAILY@0800 #30 tablet 03/11/19 [Rx] Folic Acid 1 mg PO DAILY #30 tablet 03/11/19 [Rx] HYDROcodone/Acet 5/325 mg [Benedict 5-325 mg] 1 tab PO Q6H PRN 7 Days #28 tablet 03/11/19 [Rx] Ipratropium/Albuterol Neb [Duoneb] 3 ml IH Q4HWA #100 inhsol 03/11/19 [Rx] Nicotine Patch [Nicoderm] 21 mg TD DAILY #30 patch.td24 03/11/19 [Rx] Ranitidine HCl [Zantac] 300 mg PO DAILY #30 tablet 03/11/19 [Rx] Allergies/Adverse Reactions: Allergy/AdvReac Type Severity Reaction Status Date / Time acetaminophen AdvReac Nausea Verified 02/27/19 15:04 [From Darvocet-N] propoxyphene AdvReac Nausea Verified 02/27/19 15:04 [From Darvocet-N] Date of admission: 02/28/19 15:07 [facility] care physician: [facility] Consults: 02/27/19 17:52 Consult to Speech Therapy [CONS] Routine Comment: Evaluate, develop and implement POC Reason for Consult: Occasionally chokes on food. Pneumonia Time Notified: 17:53 Call Completed: No 02/28/19 12:07 Consult to Pulmonology [CONS] Routine Consulting Provider: [facility] Reason for Consult: Pneumonia and hemoptysis. Time Notified: 12:09 Call Completed: Yes 03/03/19 05:00 Consult to Cardiology [CONS] Routine Comment: Consulting Provider: Cardiology [place] Reason for Consult: Chest pain, and the need for plavix. Call Completed: No 03/03/19 08:47 Consult to Nutrition [CONS] Routine Comment: Consulting Provider: NUTRITION Reason for Dietary Consult: PO Supplementation Other:: malnutrition 03/03/19 10:57 Consult to Physical Therapy [CONS] Routine Comment: Evaluate, develop and implement POC Reason for Consult: generalzed weakness Does patient have active BEDREST order?: No Is patient medically & hemodynamically stable?: Yes Patient assessed for mobility or mobilized this visit?: No Discharging clinician: Deangelo Nicholson Anticipated date of discharge: 03/11/19 - Constitutional Vitals: Temp Pulse Resp BP Pulse Ox 98.6 F 88 18 110/74 91 03/11/19 11:31 03/11/19 11:31 03/11/19 11:36 03/11/19 11:31 03/11/19 11:36 Exam: GEN: Slightly emaciated NAD, A&O x 3, Pleasant and conversant, at his bedside SKIN: [place] warm acyanotic not jaundice HEART: RRR, no murmurs LUNGS: Diminished bilaterally appears CTA, few scattered crackles, overall non labored ABDOMEN; Soft, non tender or distended, BS x 4 normactive EXT: No LE edema, Pedal pulses 1+, radial pulses 2+ PSYCH: Mood and affect is appropriate - Patient Status Disposition: Home Health Service Condition: Fair Overall status at discharge: patient is progressing back to baseline - Discharge Instructions Instructions: Acute Respiratory Distress Syndrome (DC) Follow Up With: [facility] [Outside] - 03/14/19 1:15 pm - Diet and Activity Activity: as per physical therapy Diet: low fat, low cholesterol - VTE Reasons for not Prescribing Prophylaxis: Not indicated-Anticoagulated or INR therapeutic
--- NOTE | 2019-03-11 15:22 | Physician Discharge Referral ---
Home Health/Hosp Referral Info Transfer to: Home Health (PT / OT, Aide) Provider in Charge Post Discharge: PCP - Diagnosis (1) Acute respiratory failure with hypoxia Priority: Primary Status: Acute (2) MRSA pneumonia Priority: Primary Status: Acute (3) Sepsis Priority: Secondary Status: Resolved (4) UTI (urinary tract infection) Priority: Primary Status: Acute (5) COPD with exacerbation Status: Acute (6) Abnormal CT of the chest Priority: Secondary Status: Acute (7) Normocytic anemia Priority: Secondary Status: Acute (8) Vitamin B 12 deficiency Priority: Secondary Status: Acute (9) Hypokalemia Priority: Secondary Status: Acute (10) Elevated LFTs Priority: Secondary Status: Acute (11) Generalized weakness Priority: Secondary Status: Acute (12) HTN (hypertension) Priority: Secondary Status: Chronic - Respiratory Orders Oxygen / L per min (3 L NC) Smoking Cessation: Smoking cessation has been advised. For more information, call the [place] Tobacco Quit Line at 9-401-IYLG-NOW. - Transfer Medications Prescriptions: Cyanocobalamin (Vitamin B-12) [B-12] 1,000 mcg PO QDPC #30 tablet.er Doxycycline 100 mg PO BID #14 capsule Ipratropium/Albuterol Neb [Duoneb] 3 ml IH Q4HWA #100 inhsol Ferrous Sulfate 325 mg PO DAILY@0800 #30 tablet Folic Acid 1 mg PO DAILY #30 tablet Nicotine Patch [Nicoderm] 21 mg TD DAILY #30 patch.td24 HYDROcodone/Acet 5/325 mg [Mona 5-325 mg] 1 tab PO Q6H PRN 7 Days #28 tablet PRN Reason: Pain Clopidogrel Bisulfate [Plavix] 75 mg PO DAILY #30 tablet Ranitidine HCl [Zantac] 300 mg PO DAILY #30 tablet Home Medications: Aspirin 81 mg PO QAM 03/14/15 [History] Budesonide/Formoterol 160/4.5 [Symbicort 160/4.5] 1 puff IH BID PRN 03/14/15 [History] Calcium Carbonate/Vitamin D3 [Calcium 1,000 + D3 Caplet] 1 each PO BID 02/27/19 [History] Gabapentin [Neurontin] 600 mg PO TID 02/27/19 [History] Melatonin [Melatin] 6 mg PO HS 02/27/19 [History] Metoprolol Succinate [Toprol Xl] 12.5 mg PO DAILY 02/27/19 [History] OLANZapine [Zyprexa] 7.5 mg PO HS 02/27/19 [History] Simvastatin [Zocor] 40 mg PO HS 02/27/19 [History] rOPINIRole [Requip] 1 mg PO HS 02/27/19 [History] Clopidogrel Bisulfate [Plavix] 75 mg PO DAILY #30 tablet 03/11/19 [Rx] Cyanocobalamin (Vitamin B-12) [B-12] 1,000 mcg PO QDPC #30 tablet.er 03/11/19 [Rx] Doxycycline 100 mg PO BID #14 capsule 03/11/19 [Rx] Ferrous Sulfate 325 mg PO DAILY@0800 #30 tablet 03/11/19 [Rx] Folic Acid 1 mg PO DAILY #30 tablet 03/11/19 [Rx] HYDROcodone/Acet 5/325 mg [Mona 5-325 mg] 1 tab PO Q6H PRN 7 Days #28 tablet 03/11/19 [Rx] Ipratropium/Albuterol Neb [Duoneb] 3 ml IH Q4HWA #100 inhsol 03/11/19 [Rx] Nicotine Patch [Nicoderm] 21 mg TD DAILY #30 patch.td24 03/11/19 [Rx] Ranitidine HCl [Zantac] 300 mg PO DAILY #30 tablet 03/11/19 [Rx] Allergies/Adverse Reactions: Allergy/AdvReac Type Severity Reaction Status Date / Time acetaminophen AdvReac Nausea Verified 02/27/19 15:04 [From Darvocet-N] propoxyphene AdvReac Nausea Verified 02/27/19 15:04 [From Darvocet-N] Certification: Further, I certify that my clinical findings support that this patient is homebound (i.e. absences from home require considerable and taxing effort and are for medical reasons or mandaen services or infrequently or short duration when for other reasons) because: Homebound Reason: Leaving home requires considerable and taxing effort due to condition Attestation: My signature below is to certify that this patient is under my care and that I, or nurse practitioner, or a physician's commercial real estate assistant working with me, has a [id number] encounter with this patient.
[2019-03-11] MEDS ORDERED: Aminoglycoside Consult 1 EACH MC ONE (17:54)
--- NOTE | 2019-03-13 16:06 | Electrocardiograph Report ---
[address] [address] Test Date: 2019-03-02 Pat Name: Sukhjinder Caro Department: 115 Room: 2N15 Gender: M [employer]: : 1960 Requested By: Nicholas Hwang Order Number: [id number] Reading MD: Messi Smith Measurements Intervals Victor Rate: 103 P: 59 ND: 119 QRS: 1 QRSD: 98 T: 28 QT: 343 QTc: 403 Interpretive Statements SINUS TACHYCARDIA WITH SHORT ND INTERVAL LEFT ATRIAL ENLARGEMENT Electronically Signed On 03-13-2019 16:04:45 EDT by Messi Smith
== END 2019-03-11 17:55 | disposition home health service (06) | DRG 871 ==
LOC: EMEROOARM 20:54 → 3ANU 20:54 → SUATTDRO 22:10 → 3ANU 22:30 → SUATTDRO 02-28 15:07 → 2NNU 03-07 15:29
PROVIDERS: ADMIT Internal Medicine; ATTEND Pharmacist

== ENCOUNTER 2020-10-23 18:14 | Observation (INO) ==
[2020-10-23] MEDS ORDERED: Naloxone 0.4 MG/ML INJ IVP PRN (19:33)
[2020-10-23] MEDS ORDERED: Melatonin 3 MG TABLET PO PRN (19:33)
[2020-10-23] MEDS ORDERED: Acetaminophen 325 MG TABLET PO PRN (19:33)
[2020-10-23] MEDS ORDERED: Ondansetron 4 MG/2 ML VIAL IVP PRN (19:33)
[2020-10-23 20:07] LABS: Eosinophils % 1.1 %; Hematocrit 41.4 % (37.5-50.1); Hemoglobin 13.8 g/dL (12.9-16.9); Lymphocytes # 1.3 K/mcL (0.6-4.6); Lymphocytes % 35.3 %; Mean Corpuscular HGB Conc 33.3 g/dL (31.6-35.5); Mean Corpuscular Hemoglobin 29.8 pg (28.0-33.3); Mean Corpuscular Volume 89.4 fL (83.0-100.0); Mean Platelet Volume 10.2 fL (9.4-12.4); Monocytes # 0.3 K/mcL (0.0-1.3); Monocytes % 8.2 %; Neutrophils # 2.1 K/mcL (1.6-8.9); Platelet Count 167 K/mcL (140-400); Red Blood Count 4.63 M/mcL (4.19-5.50); Red Cell Distribution Width 12.5 % (11.5-14.5); Segmented Neutrophils % 55.4 %; White Blood Count 3.8 K/mcL (4.3-11.1)
[2020-10-23 20:18] LABS: INR 1.1; Prothrombin Time 12.5 Seconds (9.4-12.1)
[2020-10-23 20:21] LABS: Activated Partial Thrombo Time 28.8 Seconds (26.0-36.0)
[2020-10-23 20:28] LABS: Alanine Aminotransferase 10 Units/L (7-52); Albumin 4.2 g/dL (3.5-5.7); Albumin/Globulin Ratio 1.6 (1.1-2.2); Alkaline Phosphatase 56 Units/L (34-104); Aspartate Amino Transferase 16 Units/L (13-39); BUN/Creatinine Ratio 10 (6-26); Bilirubin,Total 0.4 mg/dL (0.3-1.0); Blood Urea Nitrogen 12 mg/dL (8-23); Calcium 9.4 mg/dL (8.6-10.3); Carbon Dioxide 26 mEq/L (23-29); Chloride 107 mEq/L (98-107); Chol/HDL Ratio 3.7 (0-4.9); Cholesterol 146 mg/dL (< 200); Globulin 2.6 g/dL (2.4-3.5); Glucose 95 mg/dL (70-105); HDL Cholesterol 40 mg/dL (40-59); LDL Cholesterol,Calculated 88 mg/dL (< 100); Magnesium 2.1 mg/dL (1.6-2.6); Osmolality,Calculated 286 (280-300); Phosphorous 3.1 mg/dL (2.7-4.5); Potassium 3.9 mEq/L (3.5-5.1); Sodium 138 mEq/L (136-145); Total Protein 6.8 g/dL (6.4-8.9); Triglycerides 88 mg/dL (< 150); eGFR For African Americans > 60 (> 60); eGFR For Non-African Americans > 60 (> 60)
[2020-10-23 20:29] LABS: Troponin I < 0.03 ng/mL (< 0.04)
[2020-10-23] MEDS: *HR* HYDROcodone/Acet 5/325 mg TABLET PO PRN (21:03)
[2020-10-24] MEDS ORDERED: Perflutren Lipid Microsphere 1.3 ML in 0.9 % Sodium Chloride 8.7 ML IVP PRN (00:43)
[2020-10-24] MEDS: *HR* Heparin 5,000 UNIT/ML VIAL SQ SCH ×3 (04:25→21:51)
[2020-10-24] MEDS: *HR* HYDROcodone/Acet 5/325 mg TABLET PO PRN ×2 (04:47→16:25)
[2020-10-24] MEDS ORDERED: Isovue-370 500 ML BOTTLE IVP ONE ×2 (08:34→17:45)
[2020-10-24] MEDS: Nicotine 21 MG PATCH.TD24 TD SCH (09:18)
[2020-10-24] MEDS ORDERED: *HR* Enoxaparin 40 MG/0.4 ML SYRINGE SQ ONE (14:14)
[2020-10-24] MEDS: Gabapentin 400 MG CAPSULE PO SCH ×2 (15:49→21:35)
[2020-10-24] MEDS: hydrOXYzine pamoate 25 MG CAPSULE PO SCH ×2 (16:23→21:36)
[2020-10-24] MEDS: Cyanocobalamin (B-12) 1,000 MCG TABLET PO SCH (16:23)
[2020-10-24] MEDS ORDERED: Melatonin 3 MG TABLET PO SCH (21:00)
[2020-10-24] MEDS ORDERED: rOPINIRole 1 MG TABLET PO SCH (21:00)
[2020-10-25 04:13] LABS: Basophils % 0.4 %; Eosinophils # 0.1 K/mcL (0.0-0.6); Eosinophils % 1.3 %; Hematocrit 43.8 % (37.5-50.1); Hemoglobin 14.4 g/dL (12.9-16.9); Immature Granulocytes % 0.2 % (0-4); Lymphocytes # 2.1 K/mcL (0.6-4.6); Lymphocytes % 38.2 %; Mean Corpuscular HGB Conc 32.9 g/dL (31.6-35.5); Mean Corpuscular Hemoglobin 29.4 pg (28.0-33.3); Mean Corpuscular Volume 89.6 fL (83.0-100.0); Mean Platelet Volume 10.6 fL (9.4-12.4); Monocytes # 0.5 K/mcL (0.0-1.3); Monocytes % 9.3 %; Neutrophils # 2.7 K/mcL (1.6-8.9); Platelet Count 175 K/mcL (140-400); Red Blood Count 4.89 M/mcL (4.19-5.50); Red Cell Distribution Width 12.5 % (11.5-14.5); Segmented Neutrophils % 50.6 %; White Blood Count 5.4 K/mcL (4.3-11.1)
[2020-10-25] MEDS: *HR* Heparin 5,000 UNIT/ML VIAL SQ SCH ×2 (05:47→12:28)
[2020-10-25] MEDS ORDERED: *HR* Enoxaparin 40 MG/0.4 ML SYRINGE SQ SCH (06:00)
[2020-10-25] MEDS: Nicotine 21 MG PATCH.TD24 TD SCH (07:16)
[2020-10-25] MEDS: Gabapentin 400 MG CAPSULE PO SCH (08:24)
[2020-10-25] MEDS: hydrOXYzine pamoate 25 MG CAPSULE PO SCH ×2 (08:25→13:48)
[2020-10-25] MEDS: Cyanocobalamin (B-12) 1,000 MCG TABLET PO SCH (08:25)
[2020-10-25] MEDS ORDERED: Cholecalciferol (D-3) 1,000 UNIT (25MCG) TABLET PO SCH (09:00)
[2020-10-25] MEDS ORDERED: Metoprolol XL (24 HR) Succ 25 MG TAB.ER.24H PO SCH (10:00)
[2020-10-25 10:20] VITALS: BP 160/98
== END 2020-10-25 15:12 | disposition home or self-care (01) ==
LOC: 3BNU
PROVIDERS: ADMIT Internal Medicine; ATTEND Internal Medicine

== ENCOUNTER 2020-11-11 19:50 | Observation (INO) ==
[2020-11-11] MEDS ORDERED: Ondansetron 4 MG/2 ML VIAL IVP PRN (21:09)
[2020-11-11] MEDS ORDERED: Acetaminophen 325 MG TABLET PO PRN (21:09)
[2020-11-11] MEDS ORDERED: Naloxone 0.4 MG/ML INJ IVP PRN (21:09)
[2020-11-11] MEDS ORDERED: 0.9 % Sodium Chloride 1,000 ML IVC SCH (21:15)
[2020-11-11 21:46] LABS: Basophils % 0.1 %; Hematocrit 31.6 % (37.5-50.1); Hemoglobin 10.7 g/dL (12.9-16.9); Immature Granulocytes % 0.4 % (0-4); Lymphocytes # 0.5 K/mcL (0.6-4.6); Lymphocytes % 2.7 %; Mean Corpuscular HGB Conc 33.9 g/dL (31.6-35.5); Mean Corpuscular Hemoglobin 29.4 pg (28.0-33.3); Mean Corpuscular Volume 86.8 fL (83.0-100.0); Mean Platelet Volume 9.2 fL (9.4-12.4); Monocytes # 0.9 K/mcL (0.0-1.3); Neutrophils # 15.8 K/mcL (1.6-8.9); Platelet Count 189 K/mcL (140-400); Red Blood Count 3.64 M/mcL (4.19-5.50); Red Cell Distribution Width 12.7 % (11.5-14.5); Segmented Neutrophils % 91.8 %; White Blood Count 17.2 K/mcL (4.3-11.1)
[2020-11-11 21:54] LABS: INR 1.2; Prothrombin Time 13.4 Seconds (9.4-12.1)
[2020-11-11 21:56] LABS: Activated Partial Thrombo Time 27.8 Seconds (26.0-36.0)
[2020-11-11 22:07] LABS: Alanine Aminotransferase 9 Units/L (7-52); Albumin 3.4 g/dL (3.5-5.7); Albumin/Globulin Ratio 1.1 (1.1-2.2); Alkaline Phosphatase 88 Units/L (34-104); Aspartate Amino Transferase 12 Units/L (13-39); BUN/Creatinine Ratio 16 (6-26); Bilirubin,Total 0.7 mg/dL (0.3-1.0); Blood Urea Nitrogen 18 mg/dL (8-23); Calcium 8.5 mg/dL (8.6-10.3); Carbon Dioxide 23 mEq/L (23-29); Chloride 100 mEq/L (98-107); Glucose 111 mg/dL (70-105); Osmolality,Calculated 275 (280-300); Potassium 3.3 mEq/L (3.5-5.1); Sodium 131 mEq/L (136-145); Total Protein 6.4 g/dL (6.4-8.9); eGFR For African Americans > 60 (> 60); eGFR For Non-African Americans > 60 (> 60)
[2020-11-11 22:19] LABS: Thyroid Stimulating Hormone 2.024 mcIU/mL (0.340-5.600)
[2020-11-12] MEDS: rOPINIRole 1 MG TABLET PO SCH ×2 (00:45→22:13)
[2020-11-12] MEDS: Gabapentin 400 MG CAPSULE PO SCH ×3 (00:45→22:13)
[2020-11-12] MEDS: Melatonin 3 MG TABLET PO SCH ×2 (00:45→22:13)
[2020-11-12 01:13] LABS: Hematocrit 32.3 % (37.5-50.1); Mean Corpuscular HGB Conc 34.1 g/dL (31.6-35.5); Mean Platelet Volume 9.6 fL (9.4-12.4); Platelet Count 202 K/mcL (140-400); Red Blood Count 3.67 M/mcL (4.19-5.50); Red Cell Distribution Width 12.6 % (11.5-14.5)
[2020-11-12 01:35] LABS: BUN/Creatinine Ratio 15 (6-26); Blood Urea Nitrogen 16 mg/dL (8-23); Carbon Dioxide 23 mEq/L (23-29); Chloride 101 mEq/L (98-107); Potassium 3.1 mEq/L (3.5-5.1); Sodium 132 mEq/L (136-145)
[2020-11-12 01:36] LABS: Calcium 8.3 mg/dL (8.6-10.3); Glucose 126 mg/dL (70-105); Osmolality,Calculated 277 (280-300); eGFR For African Americans > 60 (> 60); eGFR For Non-African Americans > 60 (> 60)
[2020-11-12] MEDS ORDERED: Potassium Chloride Elixir 20 MEQ/15 ML UDC PO ONE (05:20)
[2020-11-12] MEDS: Azithromycin 500 MG in 0.9 % Sodium Chloride 250 ML IVPB SCH (05:47)
[2020-11-12] MEDS: cefTRIAXone 1,000 MG in Water for inj. (sterile) 10 ML IVPB SCH (05:47)
[2020-11-12] MEDS ORDERED: 0.9 % Sodium Chloride 1,000 ML IVC SCH (09:00)
[2020-11-12] MEDS: hydrOXYzine pamoate 25 MG CAPSULE PO SCH ×3 (09:17→22:13)
[2020-11-12] MEDS: Cyanocobalamin (B-12) 1,000 MCG TABLET PO SCH (09:18)
[2020-11-12] MEDS: Metoprolol XL (24 HR) Succ 25 MG TAB.ER.24H PO SCH (09:18)
[2020-11-12] MEDS ORDERED: Cyanocobalamin (B-12) 1,000 MCG TABLET PO SCH (12:00)
[2020-11-12] MEDS: Ipratropium/Albuterol Neb 3 ML IH SCH ×3 (13:05→21:55)
[2020-11-12 14:21] LABS: Adenovirus Not Detected (Not Detect); Bordetella Pertussis Not Detected (Not Detect); Chlamydophila pneumoniae Not Detected (Not Detect); Coronavirus 229E Not Detected (Not Detect); Coronavirus HKU1 Not Detected (Not Detect); Coronavirus NL63 Not Detected (Not Detect); Coronavirus OC43 Not Detected (Not Detect); Human Metapneumovirus Not Detected (Not Detect); Human Rhinovirus/Enterovirus Not Detected (Not Detect); Influenza A Subtype 2009 H1 Not Detected (Not Detect); Influenza B Not Detected (Not Detect); Mycoplasma pneumoniae Not Detected (Not Detect); Parainfluenza Virus 1 Not Detected (Not Detect); Parainfluenza Virus 2 Not Detected (Not Detect); Parainfluenza Virus 3 Not Detected (Not Detect); Parainfluenza Virus 4 Not Detected (Not Detect); Respiratory Syncytial Virus Not Detected (Not Detect); SARS-CoV-2 Not Detected (Not Detect)
[2020-11-12] MEDS: Aspirin Enteric Coated 81 MG Tablet PO SCH (14:21)
[2020-11-12] MEDS: *HR* Heparin 5,000 UNIT/ML VIAL SQ SCH (16:43)
[2020-11-12] MEDS ORDERED: SIMVASTATIN 80 MG PO SCH (21:00)
[2020-11-13] MEDS: Ipratropium/Albuterol Neb 3 ML IH SCH ×2 (04:03→09:38)
[2020-11-13] MEDS: Azithromycin 500 MG in 0.9 % Sodium Chloride 250 ML IVPB SCH (04:56)
[2020-11-13] MEDS: cefTRIAXone 1,000 MG in Water for inj. (sterile) 10 ML IVPB SCH (04:57)
[2020-11-13] MEDS: *HR* Heparin 5,000 UNIT/ML VIAL SQ SCH (04:57)
[2020-11-13 06:45] VITALS: BP 152/94
[2020-11-13 07:06] LABS: Basophils % 0.2 %; Eosinophils % 0.2 %; Hematocrit 32.5 % (37.5-50.1); Hemoglobin 10.8 g/dL (12.9-16.9); Immature Granulocytes % 0.6 % (0-4); Lymphocytes % 15.4 %; Mean Corpuscular HGB Conc 33.2 g/dL (31.6-35.5); Mean Corpuscular Hemoglobin 29.8 pg (28.0-33.3); Mean Corpuscular Volume 89.8 fL (83.0-100.0); Mean Platelet Volume 9.6 fL (9.4-12.4); Monocytes # 0.6 K/mcL (0.0-1.3); Monocytes % 8.7 %; Neutrophils # 4.8 K/mcL (1.6-8.9); Platelet Count 232 K/mcL (140-400); Red Blood Count 3.62 M/mcL (4.19-5.50); Red Cell Distribution Width 12.7 % (11.5-14.5); Segmented Neutrophils % 74.9 %
[2020-11-13 07:07] LABS: White Blood Count 6.4 K/mcL (4.3-11.1)
[2020-11-13 07:22] LABS: BUN/Creatinine Ratio 18 (6-26); Blood Urea Nitrogen 18 mg/dL (8-23); Calcium 8.7 mg/dL (8.6-10.3); Carbon Dioxide 24 mEq/L (23-29); Chloride 104 mEq/L (98-107); Glucose 140 mg/dL (70-105); Osmolality,Calculated 288 (280-300); Phosphorous 3.4 mg/dL (2.7-4.5); Potassium 3.2 mEq/L (3.5-5.1); Sodium 137 mEq/L (136-145); eGFR For African Americans > 60 (> 60); eGFR For Non-African Americans > 60 (> 60)
[2020-11-13] MEDS: Aspirin Enteric Coated 81 MG Tablet PO SCH (09:29)
[2020-11-13] MEDS: Cyanocobalamin (B-12) 1,000 MCG TABLET PO SCH (09:29)
[2020-11-13] MEDS: Gabapentin 400 MG CAPSULE PO SCH (09:29)
[2020-11-13] MEDS: hydrOXYzine pamoate 25 MG CAPSULE PO SCH (09:29)
[2020-11-13] MEDS: Metoprolol XL (24 HR) Succ 25 MG TAB.ER.24H PO SCH (09:30)
== END 2020-11-13 11:37 | disposition home or self-care (01) ==
LOC: 3BNU → SUATTDRO 20:40
PROVIDERS: ADMIT Family Medicine; ATTEND Internal Medicine

== ENCOUNTER 2021-01-05 19:13 | Observation (INO) ==
[2021-01-05 19:56] LABS: Basophils % 0.3 %; Eosinophils % 1.1 %; Hematocrit 40.4 % (37.5-50.1); Hemoglobin 13.1 g/dL (12.9-16.9); Lymphocytes # 1.3 K/mcL (0.6-4.6); Lymphocytes % 36.4 %; Mean Corpuscular HGB Conc 32.4 g/dL (31.6-35.5); Mean Corpuscular Hemoglobin 28.9 pg (28.0-33.3); Mean Corpuscular Volume 89.2 fL (83.0-100.0); Mean Platelet Volume 9.9 fL (9.4-12.4); Monocytes # 0.4 K/mcL (0.0-1.3); Monocytes % 9.6 %; Neutrophils # 1.9 K/mcL (1.6-8.9); Platelet Count 195 K/mcL (140-400); Red Blood Count 4.53 M/mcL (4.19-5.50); Red Cell Distribution Width 12.6 % (11.5-14.5); Segmented Neutrophils % 52.6 %; White Blood Count 3.6 K/mcL (4.3-11.1)
[2021-01-05 20:18] LABS: Alanine Aminotransferase 11 Units/L (7-52); Albumin 4.2 g/dL (3.5-5.7); Albumin/Globulin Ratio 1.6 (1.1-2.2); Alkaline Phosphatase 69 Units/L (34-104); Aspartate Amino Transferase 16 Units/L (13-39); BUN/Creatinine Ratio 6 (6-26); Bilirubin,Total 0.4 mg/dL (0.3-1.0); Blood Urea Nitrogen 8 mg/dL (8-23); Calcium 9.3 mg/dL (8.6-10.3); Carbon Dioxide 29 mEq/L (23-29); Chloride 106 mEq/L (98-107); Globulin 2.6 g/dL (2.4-3.5); Glucose 99 mg/dL (70-105); Osmolality,Calculated 284 (280-300); Potassium 4.1 mEq/L (3.5-5.1); Sodium 138 mEq/L (136-145); Total Protein 6.8 g/dL (6.4-8.9); Troponin I < 0.03 ng/mL (< 0.04); eGFR For African Americans > 60 (> 60); eGFR For Non-African Americans 54 (> 60)
[2021-01-05] MEDS ORDERED: Naloxone 0.4 MG/ML INJ IVP PRN (22:31)
[2021-01-05] MEDS ORDERED: Acetaminophen 325 MG TABLET PO PRN (22:41)
[2021-01-05] MEDS ORDERED: Ondansetron 4 MG/2 ML VIAL IVP PRN (22:41)
[2021-01-05] MEDS ORDERED: 0.9 % Sodium Chloride 1,000 ML IVC SCH (23:00)
[2021-01-05 23:18] LABS: Bilirubin,Urine Negative (Negative); Blood,Urine Negative (Negative); Clarity,Urine Clear (Clear); Color,Urine Colorless (Yellow); Glucose,Urine (UA) Normal (Normal); Ketones,Urine Negative (Negative); Leukocyte Esterase,Urine Negative (Negative); Nitrite,Urine Negative (Negative); PH,Urine 7.5 pH Units (5.0-8.0); Protein,Urine Negative (Neg-Trace); Specific Gravity,Urine 1.007 (1.010-1.025); Urobilinogen,Urine Normal (Normal)
[2021-01-06 00:05] LABS: Adenovirus Not Detected (Not Detect); Bordetella Pertussis Not Detected (Not Detect); Chlamydophila pneumoniae Not Detected (Not Detect); Coronavirus 229E Not Detected (Not Detect); Coronavirus HKU1 Not Detected (Not Detect); Coronavirus NL63 Not Detected (Not Detect); Coronavirus OC43 Not Detected (Not Detect); Human Metapneumovirus Not Detected (Not Detect); Human Rhinovirus/Enterovirus Not Detected (Not Detect); Influenza A Subtype 2009 H1 Not Detected (Not Detect); Influenza B Not Detected (Not Detect); Mycoplasma pneumoniae Not Detected (Not Detect); Parainfluenza Virus 1 Not Detected (Not Detect); Parainfluenza Virus 2 Not Detected (Not Detect); Parainfluenza Virus 3 Not Detected (Not Detect); Parainfluenza Virus 4 Not Detected (Not Detect); Respiratory Syncytial Virus Not Detected (Not Detect); SARS-CoV-2 Not Detected (Not Detect)
[2021-01-06 03:41] LABS: Hemoglobin 13.2 g/dL (12.9-16.9); Mean Corpuscular HGB Conc 33.8 g/dL (31.6-35.5); Mean Corpuscular Hemoglobin 29.3 pg (28.0-33.3); Mean Corpuscular Volume 86.7 fL (83.0-100.0); Mean Platelet Volume 10.3 fL (9.4-12.4); Platelet Count 200 K/mcL (140-400); Red Cell Distribution Width 12.4 % (11.5-14.5); White Blood Count 4.1 K/mcL (4.3-11.1)
[2021-01-06 04:07] LABS: BUN/Creatinine Ratio 9 (6-26); Blood Urea Nitrogen 11 mg/dL (8-23); Calcium 8.9 mg/dL (8.6-10.3); Carbon Dioxide 23 mEq/L (23-29); Chloride 109 mEq/L (98-107); Chol/HDL Ratio 2.9 (0-4.9); Cholesterol 113 mg/dL (< 200); Glucose 96 mg/dL (70-105); HDL Cholesterol 39 mg/dL (40-59); LDL Cholesterol,Calculated 52 mg/dL (< 100); Magnesium 2.1 mg/dL (1.6-2.6); Osmolality,Calculated 289 (280-300); Phosphorous 3.3 mg/dL (2.7-4.5); Potassium 3.6 mEq/L (3.5-5.1); Sodium 140 mEq/L (136-145); Triglycerides 111 mg/dL (< 150); Troponin I < 0.03 ng/mL (< 0.04); eGFR For African Americans > 60 (> 60); eGFR For Non-African Americans > 60 (> 60)
[2021-01-06 04:14] LABS: Thyroid Stimulating Hormone 2.541 mcIU/mL (0.340-5.600)
[2021-01-06 04:23] LABS: Folate 11.6 ng/mL (3.0-16.0)
[2021-01-06] MEDS: Famotidine 20 MG/2 ML VIAL IVP SCH ×2 (05:24→18:29)
[2021-01-06 08:51] LABS: Estimated Average Glucose 108 mg/dl; Hemoglobin A1C 5.4 %
[2021-01-06] MEDS: Aspirin Enteric Coated 81 MG Tablet PO SCH (10:05)
[2021-01-06] MEDS ORDERED: Melatonin 3 MG TABLET PO PRN (17:57)
[2021-01-06] MEDS: Gabapentin 400 MG CAPSULE PO SCH (20:42)
[2021-01-06] MEDS: rOPINIRole 1 MG TABLET PO SCH (20:43)
[2021-01-07] MEDS: Famotidine 20 MG/2 ML VIAL IVP SCH (05:06)
[2021-01-07 06:12] LABS: Hematocrit 42.5 % (37.5-50.1); Mean Corpuscular HGB Conc 35.1 g/dL (31.6-35.5); Mean Corpuscular Hemoglobin 30.5 pg (28.0-33.3); Mean Corpuscular Volume 87.1 fL (83.0-100.0); Mean Platelet Volume 10.1 fL (9.4-12.4); Platelet Count 207 K/mcL (140-400); Red Blood Count 4.88 M/mcL (4.19-5.50); Red Cell Distribution Width 12.7 % (11.5-14.5); White Blood Count 4.9 K/mcL (4.3-11.1)
[2021-01-07 06:13] LABS: Hemoglobin 14.9 g/dL (12.9-16.9)
[2021-01-07 07:50] LABS: BUN/Creatinine Ratio 13 (6-26); Blood Urea Nitrogen 15 mg/dL (8-23); Calcium 9.1 mg/dL (8.6-10.3); Carbon Dioxide 20 mEq/L (23-29); Chloride 108 mEq/L (98-107); Glucose 93 mg/dL (70-105); Osmolality,Calculated 281 (280-300); Potassium 3.6 mEq/L (3.5-5.1); Sodium 135 mEq/L (136-145); eGFR For African Americans > 60 (> 60); eGFR For Non-African Americans > 60 (> 60)
[2021-01-07] MEDS ORDERED: Famotidine 20 MG TABLET PO SCH (09:00)
[2021-01-07] MEDS ORDERED: Cyanocobalamin (B-12) 1,000 MCG TABLET PO SCH (09:00)
[2021-01-07 11:13] VITALS: BP 159/90
[2021-01-07] MEDS: Aspirin Enteric Coated 81 MG Tablet PO SCH (13:35)
[2021-01-07] MEDS: rOPINIRole 1 MG TABLET PO SCH (13:36)
[2021-01-07] MEDS: Gabapentin 400 MG CAPSULE PO SCH (13:36)
== END 2021-01-07 16:16 | disposition home or self-care (01) ==
LOC: EMEROOARM 19:13 → 3BNU 19:13 → SUATTDRO 21:16 → 3BNU 21:54
PROVIDERS: ADMIT Student in an Organized Health Care Education/Training Program; ATTEND Nurse Practitioner

== ENCOUNTER 2021-01-12 21:37 | Observation (INO) ==
[2021-01-12 22:29] LABS: Basophils % 0.5 %; Eosinophils # 0.1 K/mcL (0.0-0.6); Hematocrit 41.4 % (37.5-50.1); Hemoglobin 13.4 g/dL (12.9-16.9); Immature Granulocytes % 0.3 % (0-4); Lymphocytes # 1.8 K/mcL (0.6-4.6); Lymphocytes % 44.8 %; Mean Corpuscular HGB Conc 32.4 g/dL (31.6-35.5); Mean Corpuscular Hemoglobin 28.6 pg (28.0-33.3); Mean Corpuscular Volume 88.5 fL (83.0-100.0); Mean Platelet Volume 10.2 fL (9.4-12.4); Monocytes # 0.4 K/mcL (0.0-1.3); Monocytes % 9.9 %; Platelet Count 157 K/mcL (140-400); Red Blood Count 4.68 M/mcL (4.19-5.50); Red Cell Distribution Width 12.6 % (11.5-14.5); Segmented Neutrophils % 41.5 %
[2021-01-12 22:31] LABS: Neutrophils # 1.7 K/mcL (1.6-8.9)
[2021-01-12 22:36] LABS: INR 1.2; Prothrombin Time 13.9 Seconds (9.4-12.1)
[2021-01-12 22:49] LABS: Reactive Lymphocytes Present (Not Present)
[2021-01-12 22:52] LABS: Alanine Aminotransferase 11 Units/L (7-52); Albumin/Globulin Ratio 1.5 (1.1-2.2); Alkaline Phosphatase 68 Units/L (34-104); Aspartate Amino Transferase 15 Units/L (13-39); BUN/Creatinine Ratio 9 (6-26); Bilirubin,Total 0.4 mg/dL (0.3-1.0); Blood Urea Nitrogen 11 mg/dL (8-23); Calcium 9.2 mg/dL (8.6-10.3); Carbon Dioxide 28 mEq/L (23-29); Chloride 104 mEq/L (98-107); Globulin 2.7 g/dL (2.4-3.5); Glucose 88 mg/dL (70-105); Magnesium 2.1 mg/dL (1.6-2.6); Osmolality,Calculated 287 (280-300); Sodium 139 mEq/L (136-145); Total Protein 6.7 g/dL (6.4-8.9); Troponin I < 0.03 ng/mL (< 0.04); eGFR For African Americans > 60 (> 60); eGFR For Non-African Americans > 60 (> 60)
[2021-01-12 23:06] LABS: Adenovirus Not Detected (Not Detect); Bordetella Pertussis Not Detected (Not Detect); Chlamydophila pneumoniae Not Detected (Not Detect); Coronavirus 229E Not Detected (Not Detect); Coronavirus HKU1 Not Detected (Not Detect); Coronavirus NL63 Not Detected (Not Detect); Coronavirus OC43 Not Detected (Not Detect); Human Metapneumovirus Not Detected (Not Detect); Human Rhinovirus/Enterovirus Not Detected (Not Detect); Influenza A Subtype 2009 H1 Not Detected (Not Detect); Influenza B Not Detected (Not Detect); Mycoplasma pneumoniae Not Detected (Not Detect); Parainfluenza Virus 1 Not Detected (Not Detect); Parainfluenza Virus 2 Not Detected (Not Detect); Parainfluenza Virus 3 Not Detected (Not Detect); Parainfluenza Virus 4 Not Detected (Not Detect); Respiratory Syncytial Virus Not Detected (Not Detect); SARS-CoV-2 Not Detected (Not Detect)
[2021-01-12 23:06] LABS: Thyroid Stimulating Hormone 1.448 mcIU/mL (0.340-5.600)
[2021-01-12 23:29] LABS: Bilirubin,Urine Negative (Negative); Blood,Urine Negative (Negative); Clarity,Urine Clear (Clear); Color,Urine Colorless (Yellow); Glucose,Urine (UA) Normal (Normal); Ketones,Urine Negative (Negative); Leukocyte Esterase,Urine Negative (Negative); Nitrite,Urine Negative (Negative); Protein,Urine Negative (Neg-Trace); Specific Gravity,Urine 1.007 (1.010-1.025); Urobilinogen,Urine Normal (Normal)
[2021-01-13] MEDS ORDERED: Naloxone 0.4 MG/ML INJ IVP PRN (01:52)
[2021-01-13] MEDS ORDERED: Melatonin 3 MG TABLET PO PRN (01:52)
[2021-01-13] MEDS ORDERED: Ondansetron 4 MG/2 ML VIAL IVP PRN (01:52)
[2021-01-13 06:16] LABS: Basophils % 0.5 %; Eosinophils # 0.1 K/mcL (0.0-0.6); Eosinophils % 1.9 %; Hemoglobin 13.4 g/dL (12.9-16.9); Immature Granulocytes % 0.2 % (0-4); Lymphocytes # 2.1 K/mcL (0.6-4.6); Lymphocytes % 49.6 %; Mean Corpuscular HGB Conc 32.7 g/dL (31.6-35.5); Mean Corpuscular Hemoglobin 28.5 pg (28.0-33.3); Mean Platelet Volume 10.6 fL (9.4-12.4); Monocytes # 0.4 K/mcL (0.0-1.3); Monocytes % 8.7 %; Neutrophils # 1.6 K/mcL (1.6-8.9); Platelet Count 176 K/mcL (140-400); Red Blood Count 4.71 M/mcL (4.19-5.50); Red Cell Distribution Width 12.6 % (11.5-14.5); Segmented Neutrophils % 39.1 %; White Blood Count 4.2 K/mcL (4.3-11.1)
[2021-01-13 06:41] LABS: Alanine Aminotransferase 10 Units/L (7-52); Albumin/Globulin Ratio 1.5 (1.1-2.2); Alkaline Phosphatase 71 Units/L (34-104); Aspartate Amino Transferase 15 Units/L (13-39); BUN/Creatinine Ratio 10 (6-26); Bilirubin,Total 0.5 mg/dL (0.3-1.0); Blood Urea Nitrogen 12 mg/dL (8-23); Calcium 9.2 mg/dL (8.6-10.3); Carbon Dioxide 25 mEq/L (23-29); Chloride 106 mEq/L (98-107); Globulin 2.6 g/dL (2.4-3.5); Glucose 91 mg/dL (70-105); Osmolality,Calculated 287 (280-300); Phosphorous 3.4 mg/dL (2.7-4.5); Potassium 3.5 mEq/L (3.5-5.1); Sodium 139 mEq/L (136-145); Total Protein 6.6 g/dL (6.4-8.9); eGFR For African Americans > 60 (> 60); eGFR For Non-African Americans > 60 (> 60)
[2021-01-13] MEDS ORDERED: hydrOXYzine pamoate 25 MG CAPSULE PO PRN (12:11)
[2021-01-13] MEDS: Aspirin Enteric Coated 81 MG Tablet PO SCH (12:54)
[2021-01-13] MEDS: *HR* Heparin 5,000 UNIT/ML VIAL SQ SCH (17:22)
[2021-01-13] MEDS: Gabapentin 400 MG CAPSULE PO SCH (20:04)
[2021-01-13] MEDS: rOPINIRole 1 MG TABLET PO SCH (20:05)
[2021-01-13] MEDS ORDERED: Melatonin 3 MG TABLET PO SCH (21:00)
[2021-01-14] MEDS: *HR* Heparin 5,000 UNIT/ML VIAL SQ SCH (05:10)
[2021-01-14 07:36] VITALS: BP 127/65
[2021-01-14] MEDS ORDERED: Famotidine 20 MG TABLET PO SCH (09:00)
[2021-01-14] MEDS ORDERED: Cyanocobalamin (B-12) 1,000 MCG TABLET PO SCH (09:00)
[2021-01-14] MEDS: Gabapentin 400 MG CAPSULE PO SCH (09:11)
[2021-01-14] MEDS: rOPINIRole 1 MG TABLET PO SCH (09:11)
[2021-01-14] MEDS: Aspirin Enteric Coated 81 MG Tablet PO SCH (09:12)
== END 2021-01-14 10:22 | disposition home or self-care (01) ==
LOC: 3BNU 21:37 → EMEROOARM 21:37 → SUATTDRO 01-13 01:18 → 3BNU 01-13 01:42
PROVIDERS: ADMIT Family Medicine; ATTEND Internal Medicine